=== PATIENT | male | born 1950 | race Caucasian/White ===

== ENCOUNTER → 2023-03-31 | Outpatient (CLI) | payer MEDICARE ==
[2023-03-31 20:41] LABS: HCT 42.9 % (39.6-50.0); HGB 14.3 d/dL (13.0-17.0); MCH 29.4 pg (27.0-32.0); MCHC 33.3 d/dL (32.0-37.0); MCV 88.3 FL (80.0-97.0); Mean Platelet Volume 10.1 FL (9.5-12.2); NRBC Per 100 WBC 0 X 10*3/uL (0.00-0.01); Platelet Count 331 X 10*3/uL (140-440); RBC 4.86 X 10*6/uL (4.40-5.60); RDW 12.6 % (11.5-14.5); WBC 7.92 X 10*3/uL (4.50-10.00)
[2023-04-01 04:23] LABS: Carbon Dioxide 24.2 mmol/L (21.6-31.8); Chloride 100 mmol/L (96-109); Potassium 3.7 mmol/L (3.5-5.5); Sodium 138 mmol/L (135-145)
== END | disposition home or self-care (01) ==
LOC: LABPAT 13:40
PROVIDERS: ATTEND Internal Medicine Cardiovascular Disease
DX: Z01.812 Encounter for preprocedural laboratory examination (principal); R93.1 Abnormal findings on diagnostic imaging of heart and coronary circulation; R94.39 Abnormal result of other cardiovascular function study
CPT/HCPCS: 36415; 80051; 82565; 84520; 85027

== ENCOUNTER → 2023-03-31 | Outpatient (CLI) | payer MEDICARE ==
--- NOTE | 2023-03-31 11:16 | CA ---
Stress Echo Report Yfn Medina Age: 73 Gender: M : 1950 Exam Date: 03/31/2023 09:42 Exam Location: [facility] Ht (in): 67 Wt (lb): 172 Ordering Physician: Jimmy Zamarripa MD Referring Physician: Marilou SALCEDO Softball Player: Jens Viveros Technologist Procedure CPT: Indication: E11.9 TYPE 2 DIABETES MELLITUS WITHOUT COMPLICATIO ICD-9 Codes: Rhythm: Patient History: Cardiac Medications: Medications in past 24 hours: Contrast: N/A Stress Results Protocol: Tyshawn Total dose(mL): Exercise Duration (min:sec): 6:[address] Depression (mm): Angina Score: Mir Score: METS: 7.9 Resting HR: 105 Resting BP: 154 / 90 Peak HR: 139 Peak BP: 150 / 88 Max Predicted HR: 149 93 % Max Predicted HR Target HR: 127 Double Product: [id number] Stress Summary: BP Response: Reason for Termination: Reached target heart rate or work-load Cardiac Symptoms: SHORT OF BREATH ECG Analysis Resting ECG: Normal sinus rhythm normal axis normal intervals Stress ECG: Patient exercised on Tyshawn protocol for 6 and half minutes achieving 8 mets 85% of predicted maximal heart rate without chest pain he complained of shortness of breath. There was [address] segment depression in inferolateral leads. Arrhythmia: Echo Analysis Resting Echo: Baseline echo shows normal left ventricular size wall motion systolic function Peak Echo Analysis: Post exercise there is excessive is induced wall motion abnormality involving the anteroseptal mid to distal anterior wall and anteroapical wall suggestive of ischemia in LAD distribution MEASUREMENTS (Male/Female) Normal Values CONCLUSIONS Average exercise tolerance Markedly abnormal EKG part of the stress test Significant area of ischemia in LAD distribution I discussed the stress test results with the patient and advised him to have cardiac evaluation and undergo cardiac catheterization for further evaluation he is going to reach out to his primary care physician think it over and make a decision. I offered to see him today and scheduled for a cath tomorrow. Dr. Jan Sidhu MD (Electronically Signed) Final Date: 31 March 2023 11:15
== END | disposition home or self-care (01) ==
LOC: RADNMMAIN 09:03
PROVIDERS: ATTEND Family Medicine
DX: E11.9 Type 2 diabetes mellitus without complications (principal); R94.31 Abnormal electrocardiogram [ECG] [EKG]; R93.1 Abnormal findings on diagnostic imaging of heart and coronary circulation
CPT/HCPCS: 93351

== ENCOUNTER 2023-04-01 05:55 | Day surgery (SDC) | payer MEDICARE ==
[2023-04-01] MEDS ORDERED: ALPRAZolam 0.25 MG TAB PO PRN (06:01)
[2023-04-01] MEDS ORDERED: NITROGLYCERIN SL TABS 0.4 MG TAB SUBLINGUAL PRN ×2 (06:01→11:21)
[2023-04-01] MEDS ORDERED: ALPRAZolam 0.5 MG TAB PO PRN (06:01)
[2023-04-01] MEDS ORDERED: ASPIRIN 325 MG TAB PO STA (06:01)
[2023-04-01] MEDS ORDERED: ATORVASTATIN 80 MG TAB PO STA (06:01)
[2023-04-01] MEDS ORDERED: SODIUM CHLORIDE 0.9% 1,000 ML IV ONE (06:14)
[2023-04-01 06:32] LABS: Basophils % (A) 0 %; Eosinophils # (A) 0.2 k/uL (0-0.7); Eosinophils % (A) 2 %; HCT 42.2 % (39.0-53.0); HGB 14.7 gm/dL (13.0-17.5); Lymphocytes # (A) 1.4 k/uL (1.0-4.8); Lymphocytes % (A) 15 %; MCHC 34.8 g/dL (31.0-37.0); MCV 86.1 fL (80.0-100.0); Mean Platelet Volume 7.7; Monocytes # (A) 0.4 k/uL (0-1.0); Monocytes % (A) 4 %; Neutrophils # (A) 6.8 k/uL (1.3-7.7); Neutrophils % (A) 76 %; Platelet Count 315 k/uL (150-450); RDW 12.7 % (11.5-15.5); WBC 8.9 k/uL (3.8-10.6)
[2023-04-01 06:33] LABS: Glucose,Whole Blood 151 mg/dL (70-110)
[2023-04-01 06:50] LABS: African American GFR (CKD) >90 (>60 ml/min/1.73 sqM); Anion Gap 14 mmol/L; Blood Urea Nitrogen 15 mg/dL (9-20); Calcium 9.7 mg/dL (8.4-10.2); Carbon Dioxide 23 mmol/L (22-30); Chloride 100 mmol/L (98-107); Glucose 162 mg/dL (74-99); Non-African American GFR(CKD) >90 (>60 ml/min/1.73 sqM); Potassium 3.4 mmol/L (3.5-5.1); Sodium 137 mmol/L (137-145)
[2023-04-01] MEDS ORDERED: HEPARIN SODIUM,PORCINE 10,000 UNIT in SODIUM CHLORIDE 0.9% 1,000 ML IRRIGATION PRN (07:00)
[2023-04-01] MEDS ORDERED: HEPARIN SODIUM,PORCINE (1 ML) 2,500 UNIT in SODIUM CHLORIDE 0.9% 250 ML IRRIGATION PRN (07:00)
[2023-04-01] MEDS ORDERED: VERAPAMIL 2.5 MG/ML 2 ML AMP ONE (07:18)
[2023-04-01] MEDS ORDERED: LIDOCAINE 1% INJ 10MG/ML (20 ML MDV) ONE (07:18)
[2023-04-01] MEDS ORDERED: fentaNYL (PF) 50 MCG/ML 2 ML AMP ONE (07:32)
[2023-04-01] MEDS ORDERED: MIDAZOLAM 2 MG/2 ML VIAL IVP ONE ×2 (07:35)
[2023-04-01] MEDS ORDERED: LIDOCAINE 1% INJ 10MG/ML (5 ML VIAL-PF) SQ ONE (07:35)
[2023-04-01] MEDS ORDERED: fentaNYL (PF) 50 MCG/1 ML VIAL IVP ONE (07:36)
[2023-04-01] MEDS ORDERED: VERAPAMIL SYRINGE (5 MG/10 ML) INTRAARTER ONE ×2 (07:36→07:48)
[2023-04-01] MEDS ORDERED: HEPARIN SODIUM 1,000 UN/ML (10ML VL) ONE (07:38)
[2023-04-01] MEDS: VERAPAMIL SYRINGE (5 MG/10 ML) INTRAARTER ONE ×2 (07:47→08:01)
[2023-04-01] MEDS ORDERED: HEPARIN SODIUM 1,000 UN/ML (10ML VL) IV ONE (07:48)
[2023-04-01] MEDS ORDERED: IOPAMIDOL-370 100ML BTL INJ ONE (08:27)
[2023-04-01 08:54] LABS: Glucose,Whole Blood 156 mg/dL (70-110)
--- NOTE | 2023-04-01 09:01 | CC ---
CARDIAC CATHETERIZATION REPORT REFERRING PHYSICIAN: Dr. Zamarripa. INDICATION: Abnormal stress echo in a patient with multiple coronary risk factors. PROCEDURE NOTE: After obtaining informed consent, left heart catheterization and coronary angiogram were performed via the right radial artery using standard Sera catheters. I initially obtained the right radial artery access using Seldinger technique, 6-Icelandic sheath was placed. Catheters and wires were floated into the ascending aorta under fluoroscopic guidance. We went through multiple catheter exchanges and ultimately engaged the left coronary artery using a Jose Armando catheter. The procedure was completed uneventfully. The patient received verapamil and heparin per protocol. FINDINGS: 1. Hemodynamics: Left ventricular end-diastolic pressure is 15 mm. There is no significant gradient across the aortic valve. 2. Left ventriculogram: Left ventriculogram is not performed. 3. Angiographic data: a.Right coronary artery: Right coronary artery is a large dominant vessel and shows a focal 95% stenosis in the midportion and 70% stenosis as it bifurcates into PDA and PLV. b.Left main coronary artery: The left main coronary artery appears calcified, but is free of significant stenosis. Divides into left anterior descending coronary artery and circumflex coronary artery. LAD shows a focal 90% stenosis in its midportion. Circumflex coronary artery has a 70% proximal circ lesion. CONCLUSIONS: Three-vessel coronary artery disease that is heavily calcified. PLAN: I reviewed angiographic data with Dr. Jo, the on-call medicare coordinator, who felt angioplasty will be high risk. I am going to have a surgeon evaluate the patient given the fact that patient is a diabetic, has multivessel coronary artery disease, is better off with surgery. MMODL / IJN: [id number] /
[2023-04-01] MEDS ORDERED: RX INFO: IV CONTRAST WAS GIVEN 1 EACH MISC MISCELLANE PRN (11:19)
[2023-04-01] MEDS ORDERED: DEXTROSE 50% SYRINGE 50 ML IVP PRN ×2 (11:23)
--- NOTE | 2023-04-01 11:45 | US ---
EXAMINATION TYPE: US carotid duplex BILAT DATE OF EXAM: 04/01/2023 COMPARISON: NONE CLINICAL INDICATION: Male, 73 years old with history of Pre-Op Cardiac Surgery; open heart TECHNIQUE: Carotid duplex ultrasound examination. Indirect Doppler criteria was utilized. FINDINGS: EXAM MEASUREMENTS: RIGHT: Peak Systolic Velocity (PSV) cm/sec ----- Right CCA: 59.9 ----- Right ICA: 92.5 ----- Right ECA: 251.8 ICA/CCA ratio: 1.5 RIGHT: End Diastole cm/sec ----- Right CCA: 16.8 ----- Right ICA: 32.5 ----- Right ECA: 19.1 LEFT: Peak Systolic Velocity (PSV) cm/sec ----- Left CCA: 65.9 ----- Left ICA: 110.2 ----- Left ECA: 211.6 ICA/CCA ratio: 1.7 LEFT: End Diastole cm/sec ----- Left CCA: 18 ----- Left ICA: 35.3 ----- Left ECA: 24.8 VERTEBRALS (direction of flow): Right Vertebral: Antegrade Left Vertebral: Antegrade Rhythm: Normal TUNGSTEN TENDER NOTES: Bilateral atherosclerotic plaque. No significant stenosis seen IMPRESSION: No significant hemodynamic stenosis bilaterally. Criteria for Assigning % of Stenosis / Diameter reduction (Estimation based on the indirect measurements of the internal carotid artery velocities (ICA PSV). 1. Normal (no stenosis)=ICA PSV < 125 cm/s: ratio < 2.0: ICA EDV<40 cm/s. 2. Less than 50% stenosis=ICA PSV < 125 cm/s: ratio < 2.0: ICA EDV<40 cm/s. 3. 50 to 69% stenosis=ICA PSV of 125 to 230 cm/s: ration 2.0 ? 4.0: ICA EDV 40-100 cm/s. 4. Greater than 70% stenosis to near occlusion= ICA PSV > 230 cm/s: ratio > 4.0: ICA EDV > 100 cm/s. 5. Near occlusion= ICA PSV velocities may be low or undetectable: variable ratio and ICA EDV. 6. Total occlusion=unable to detect flow.
[2023-04-01 11:56] LABS: Appearance,Urine Clear (Clear); Bilirubin,Urine Negative (Negative); Blood,Urine Negative (Negative); Color,Urine Colorless; Glucose,Urine (UA) Negative (Negative); Ketones,Urine Negative (Negative); Leukocyte Esterase,Urine Negative (Negative); Nitrite,Urine Negative (Negative); PH, Urine 7.5 (5.0-8.0); Protein,Urine Negative (Negative); Specific Gravity,Urine 1.016 (1.001-1.035); Urobilinogen,Urine <2.0 mg/dL (<2.0)
--- NOTE | 2023-04-01 12:03 | CT ---
EXAMINATION TYPE: CT chest wo con DATE OF EXAM: 04/01/2023 COMPARISON: None HISTORY: Pre op cardiac surgery CT DLP: 389.[address] of the chest was performed with lung and mediastinal window settings submitted. The la ck of contrast limits evaluation of the vascular, mediastinal and parenchymal structures including th e upper abdomen. LUNGS: The lungs are clear and free of infiltrate. No atelectasis. No pulmonary nodule or mass is de tected. No pleural effusion. No CT evidence of interstitial lung disease. Thoracic aorta, aortic root measures 3.2 cm while the descending thoracic aorta measures 3.6 cm in AP dimension. Minimal mural calcifications seen. Aortic arch demonstrates mild calcific atheromatous ch pa and is of normal caliber as is the descending thoracic aorta. MEDIASTINUM/SEAN: No significant cardiomegaly. Three-vessel coronary artery calcifications seen. No e vidence for mediastinal mass. No lymph nodes greater than 1cm. UPPER ABDOMEN: No significant abnormality is seen. OTHER: No significant other abnormality. IMPRESSION: 1. Aorta as discussed above.
--- NOTE | 2023-04-01 12:13 | XR ---
EXAMINATION TYPE: XR chest 2V DATE OF EXAM: 04/01/2023 COMPARISON: NONE HISTORY: Shortness of breath TECHNIQUE: Frontal and lateral views of the chest are obtained. FINDINGS: Scattered senescent parenchymal changes noted. No evidence for infiltrate. No evidence for atelectasis. Heart size is stable. Mediastinal structures are stable and grossly unremarkable. No evidence for hilar prominence. Degenerative changes dorsal spine. IMPRESSION: 1. No evidence for acute pulmonary disease.
--- NOTE | 2023-04-01 12:29 | US ---
EXAMINATION TYPE: Pre-Operative Non-Invasive Evaluation of the hand for Potential Radial Artery [place], Measurements only DATE OF EXAM: 04/01/2023 11:23 AM CLINICAL INDICATION: Male, 73 years old with history of Pre-Op Cardiac Surgery; open heart SIDE PERFORMED: Left TECHNIQUE: Radial artery is measured utilizing real time linear array sonography. Dominant hand: Duplex Findings: Radial Artery: Color flow seen Measurements in mm, transverse view: Right Radial: Proximal: 5.2 x 3.5 mm Mid: 2.6 x 2.0 mm Distal: 2.2 x 2.0 mm IMPRESSION: 1. Bilateral GSV measurements listed above. 2. Performing surgeon to determine viability as conduit.
--- NOTE | 2023-04-01 12:33 | US ---
EXAMINATION TYPE: US vein mapping BIL DATE OF EXAM: 04/01/2023 11:23 AM COMPARISON: NONE CLINICAL INDICATION: Male, 73 years old with history of PreOp Cardiac Surgery; open heart SIDE PERFORMED: Bilateral TECHNIQUE: Lower extremity saphenous vein is examined and measured utilizing real time linear array sonography. Patient History: Smoker: No Heart Disease: No Previous DVT: No Vascular Surgery: No Discoloration: No Hypertension: No Diabetes: not sure Paralysis: No Varicosities: No Edema: No DUPLEX FINDINGS: Greater Saphenous: Color flow seen Lesser Saphenous: Color flow seen Measurements in mm: Right Greater Saphenous: Groin: 5.5 x 4.1 mm High Thigh: 3.9 x 2.9 mm Mid Thigh: 3.8 x 2.8 mm Above Knee: 3.6 x 2.2 mm Knee: 3.5 x 2.3 mm Below Knee: 2.4 x 1.9 mm Mid Calf: 2.6 x 1.7 mm At Ankle: 3.2 x 2.0 mm Left Greater Saphenous: Groin: 4.5 x 3.3 mm High Thigh: 3.3 x 1.7 mm Mid Thigh: 2.9 x 1.7 mm Above Knee: 3.4 x 1.6 mm Knee: 3.1 x 2.0 mm Below Knee: 2.3 x 1.0 mm Mid Calf: 1.9 x 0.9 mm At Ankle: 2.2 x 1.2 mm IMPRESSION: 1. Bilateral GSV measurements listed above. 2. Performing surgeon to determine viability as conduit.
[2023-04-01] MEDS: SODIUM CHLORIDE 0.9% 1,000 ML in EMPTY BAG 1 BAG IV SCH ×2 (16:21→19:23)
[2023-04-01] MEDS: INSULIN ASPART (NovoLOG) 100 UNIT/ML VIAL SQ SCH ×3 (16:22→20:52)
--- NOTE | 2023-04-01 17:33 | CA ---
Transthoracic Echo Report Name: Yfn Medina Age: 73 Gender: M : 1950 Exam Date: 04/01/2023 12:00 Exam Location: [facility] Ht (in): 67 Wt (lb): 172 Ordering Physician: Michael Kay Attending/Referring Phys: Rahul CORONADO Test Administrator Erick Leiva Procedure CPT: Indications: preop cardiac surgery Cardiac Hx: Technical Quality: Fair Contrast 1: Total Dose (mL): Contrast 2: Total Dose (mL): MEASUREMENTS (Male / Female) Normal Values 2D ECHO LV Diastolic Diameter PLAX 4.5 cm 4.2 - 5.9 / 3.9 - 5.3 cm LV Systolic Diameter PLAX 2.6 cm IVS Diastolic Thickness 0.9 cm 0.6 - 1.0 / 0.6 - 0.9 cm LVPW Diastolic Thickness 0.9 cm 0.6 - 1.0 / 0.6 - 0.9 cm LV Relative Wall Thickness 0.4 RV Internal Dim ED PLAX 2.3 cm LVOT Diameter 2.2 cm Aortic Root Diameter 3.1 cm LA Systolic Diameter LX 2.9 cm 3.0 - 4.0 / 2.7 - 3.8 cm LV Diastolic Volume MOD BP 44.7 cm??? 67 - 155 / 56 - 104 cm??? LV Systolic Volume MOD BP 15.7 cm??? 22 - 58 / 19 - 49 cm??? LV Ejection Fraction MOD BP 64.9 % >= 55 % LV Cardiac Index MOD BP 1215.0 cm???/min???m??? LV Diastolic Volume MOD 4C 60.4 cm??? LV Systolic Volume MOD 4C 18.4 cm??? LV Ejection Fraction MOD 4C 69.6 % LV Cardiac Index MOD 4C 1759.8 cm???/min???m??? LV Diastolic Length 4C 8.0 cm LV Systolic Length 4C 7.0 cm LV Diastolic Volume MOD 2C 32.5 cm??? LV Systolic Volume MOD 2C 13.7 cm??? LV Ejection Fraction MOD 2C 57.9 % LV Cardiac Index MOD 2C 787.6 cm???/min???m??? LV Diastolic Length 2C 7.7 cm LV Systolic Length 2C 7.0 cm LA Volume 37.3 cm??? 18 - 58 / 22 - 52 cm??? LA Volume Index 19.3 cm???/m??? 16 - 28 cm???/m??? DOPPLER AV Peak Velocity 156.0 cm/s AV Peak Gradient 9.7 mmHg LVOT Peak Velocity 94.7 cm/s LVOT Peak Gradient 3.6 mmHg LVOT Velocity Time Integral 20.1 cm LVOT Stroke Volume 79.1 cm??? LVOT Stroke Volume Index 41.7 ml/m??? LVOT Cardiac Index 3311.2 cm???/min???m??? AV Area Cont Eq pk 2.4 cm??? MV Peak Velocity 122.7 cm/s MV Peak Gradient 6.0 mmHg MV Mean Velocity 61.1 cm/s MV Mean Gradient 1.8 mmHg MV Velocity Time Integral 29.5 cm Mitral E Point Velocity 66.0 cm/s Mitral A Point Velocity 116.7 cm/s Mitral E to A Ratio 0.6 MV Deceleration Time 275.7 ms MV E' Velocity 6.2 cm/s Mitral E to MV E' Ratio 10.7 TR Peak Velocity 149.5 cm/s TR Peak Gradient 8.9 mmHg Right Ventricular Systolic Press 14.5 mmHg PV Peak Velocity 130.1 cm/s PV Peak Gradient 6.8 mmHg FINDINGS Left Ventricle Normal LV size and wall thickness. Left ventricular ejection fraction is estimated at 55-60 %. Right Ventricle Normal right ventricular size. Right ventricular systolic pressure within normal limits. Right Atrium Normal right atrial size. Left Atrium Normal left atrial size. Mitral Valve Structurally normal mitral valve. Aortic Valve Trileaflet aortic valve. Mild AV sclerosis/calcfication.no aortic valve stenosis or regurgitation. Tricuspid Valve Structurally normal tricuspid valve. Trace TR. Pulmonic Valve Structurally normal pulmonic valve. No pulmonic regurgitation. Pericardium Normal pericardium. Aorta Normal size aortic root. CONCLUSIONS Normal LV function I aortic sclerosis without any stenosis Previewed by: Dr. Jan Sidhu MD (Electronically Signed) Final Date: 01 April 2023 17:32
--- NOTE | 2023-04-01 17:36 | P.GSCN ---
History of Present Illness Consult date: 04/01/23 Reason for Consult: Multivessel coronary artery disease Requesting physician: Jan Sidhu History of present illness: This is a 73-year-old who follows in our outpatient basis for his primary care with Dr. Jimmy Zamarripa and with Dr. Zachery Sidhu for his cardiology care. He has a past medical history significant for hypertension, hyperlipidemia, diabetes mellitus type 2, family history of early onset coronary artery disease with his brother having a CABG 4 in his late 40s or early 50s, GERD, diverticulosis with previous bowel perforation requiring colostomy and subsequent reversal, and the patient is a lifetime nonsmoker. The patient reports on his annual physical exam he mentioned to his primary care physician that he was having some episodes of heartburn and was recommended to subsequently undergo a stress test. On 03/31/2023 the patient underwent stress echo exercise which demonstrated average exercise tolerance, markedly abnormal EKG part of the stress test, significant area of ischemia in the LAD distribution, and due to the findings on the stress test he was recommended to undergo a cardiac catheterization which was completed today 04/01/2023. The cardiac catheterization results showed his left main coronary artery to appear calcified, but free of significant stenosis, a 90% stenosis to his mid left anterior descending coronary artery, a 70% stenosis to his proximal circumflex coronary artery and a focal 95% stenosis to the midportion of his right coronary artery and a 70% stenosis to his right coronary artery as it bifurcated into the PDA and PLV coronary arteries. Due to the findings on the cardiac catheterization a consult was placed to Dr. Yfn Huertas from cardiothoracic surgery for further evaluation and treatment recommendations including myocardial revascularization surgery. Review of Systems A 14 point review of systems was completed and was negative except as mentioned in the HPI. 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 History of Any Multi-Drug Resistant Organisms: None Reported Past Surgical History: Bowel Resection, Heart Catheterization Additional Past Surgical History / Comment(s): Bilateral eye cataract surgery Past Anesthesia/Blood Transfusion Reactions: No Reported Reaction Past Psychological History: No Psychological Hx Reported Smoking Status: Never smoker Past Alcohol Use History: None Reported Past Drug Use History: None Reported - Past Family History Mother Family Medical History: CVA/TIA Father Family Medical History: Myocardial Infarction (DC) Brother(s) Family Medical History: Coronary Artery Disease (CAD) (Brother had CABG 4 in his late 40s to early 50s) Medications and Allergies Home Medications Medication Instructions Recorded Confirmed Type Aspirin 81 mg PO DAILY 05/08/16 04/01/23 History Multivitamin [Men's Multi-Vitamin] 1 each PO DAILY 05/08/16 04/01/23 History amLODIPine [Norvasc] 10 mg PO DAILY 05/08/16 04/01/23 History hydroCHLOROthiazide [Hydrodiuril] 25 mg PO DAILY 05/08/16 04/01/23 History lisinopriL [Zestril] 20 mg PO DAILY 05/08/16 04/01/23 History metFORMIN HCL [Glucophage] 1,000 mg PO BID 05/08/16 04/01/23 History Nitroglycerin Sl Tabs [Nitrostat] 0.4 mg SUBLINGUAL Q5M PRN #25 tab 03/31/23 04/01/23 Rx Atorvastatin [Lipitor] 40 mg PO HS 04/01/23 04/01/23 History Omeprazole [PriLOSEC] 20 mg PO DAILY 04/01/23 04/01/23 History Semaglutide [Ozempic] 0.5 ml SQ WEEKLY 04/01/23 04/01/23 History Allergies Allergy/AdvReac Type Severity Reaction Status Date / Time No Known Allergies Allergy Verified 04/01/23 06:33 Surgical - Exam Vital Signs Temp Pulse Resp BP Pulse Ox 98.7 F 86 16 154/79 93 L 04/01/23 07:15 04/01/23 07:15 04/01/23 07:15 04/01/23 07:15 04/01/23 07:15 - General well developed, well nourished, no distress, no pain - Eyes PERRL, normal ocular movement, no pale, no icteric - ENT normal pinna, normal nares, normal mucosa, no hearing loss, no congestion - Neck Neck is supple, no lymphadenopathy. no masses, no bruits, trachea midline, no venous distension - Respiratory Lungs sounds essentially clear throughout. No wheezes, rhonchi or crackles. Respirations are symmetrical and nonlabored. - Cardiovascular Regular rhythm and rate. S1 and S2 present, negative for S3, gallop or murmur. No edema present. - Abdomen Abdomen is soft, nontender and nondistended. Active bowel sounds present in all 4 abdominal quadrants. No guarding or rigidity. No organomegaly appreciated. - Genitourinary Deferred - Rectum Deferred - Integumentary Skin is warm and dry. No clubbing or cyanosis is present. no rash, no growths, no abnormal pigmentation - Neurologic No focal deficits. normal coordination, normal sensation - Musculoskeletal Moves All 4 extremities with equal strength bilateral. normal gait, normal posture - Psychiatric oriented to time, oriented to person, oriented to place, speech is normal, memory intact Results - Labs 04/01/23 06:18 04/01/23 06:18 Abnormal Lab Results - Last 24 Hours (Table) 04/01/23 04/01/23 04/01/23 Range/Units 06:18 06:32 08:43 Potassium 3.4 L (3.5-5.1) mmol/L Glucose 162 H (74-99) mg/dL POC Glucose (mg/dL) 151 H 156 H (70-110) mg/dL Diabetes panel 04/01/23 Range/Units 06:18 Sodium 137 (137-145) mmol/L Potassium 3.4 L (3.5-5.1) mmol/L Chloride 100 (98-107) mmol/L Carbon Dioxide 23 (22-30) mmol/L BUN 15 (9-20) mg/dL Creatinine 0.75 (0.66-1.25) mg/dL Glucose 162 H (74-99) mg/dL Calcium 9.7 (8.4-10.2) mg/dL Calcium panel 04/01/23 Range/Units 06:18 Calcium 9.7 (8.4-10.2) mg/dL Pituitary panel 04/01/23 Range/Units 06:18 Sodium 137 (137-145) mmol/L Potassium 3.4 L (3.5-5.1) mmol/L Chloride 100 (98-107) mmol/L Carbon Dioxide 23 (22-30) mmol/L BUN 15 (9-20) mg/dL Creatinine 0.75 (0.66-1.25) mg/dL Glucose 162 H (74-99) mg/dL Calcium 9.7 (8.4-10.2) mg/dL Adrenal panel 04/01/23 Range/Units 06:18 Sodium 137 (137-145) mmol/L Potassium 3.4 L (3.5-5.1) mmol/L Chloride 100 (98-107) mmol/L Carbon Dioxide 23 (22-30) mmol/L BUN 15 (9-20) mg/dL Creatinine 0.75 (0.66-1.25) mg/dL Glucose 162 H (74-99) mg/dL Calcium 9.7 (8.4-10.2) mg/dL - Imaging Chest x-ray: report reviewed, image reviewed Assessment and Plan Assessment: Multivessel coronary artery disease Hypertension Hyperlipidemia GERD Lifetime nonsmoker History of diverticulitis, status post bowel perforation, with colostomy and subsequent reversal History of skin cancer, basal and squamous cell Family history of early onset coronary artery disease with his brother having CABG 4 in his late 40s to early 50s Plan: The patient was seen and examined at his bedside in the extended stay unit in conjunction with Dr. Yfn Huertas. His chart and diagnostics review. Preoperative testing and preoperative teaching has been initiated. A 5 m walk test was completed with the patient, the patient tolerated well with out any complaints of shortness of breath, chest pain or chest pressure. Time 1: 1.71 seconds, time 2: 2.03 seconds, time 3: 1.88 seconds. Once the preoperative testing has been obtained and STS risk score will be calculated and discussed with the patient. Dr. Huertas discussed with the patient, and his family members present at his bedside treatment options for coronary artery disease including myocardial revascularization surgery. Risks and benefits of surgery were di scussed with the patient, and knowing and understanding the risks he wished to proceed with the surgical option. The patient will be scheduled for off-pump myocardial revascularization surgery with left internal mammary artery, possible endoscopic left radial artery harvest, endoscopic greater saphenous vein harvest, left atrial appendage exclusion and intraoperative transesophageal echocardiogram to be scheduled on 04/14/2023 to be performed by Dr. Huertas. Continue to maximize medical management. More recommendations to follow based on patient's clinical course and as we obtain his preoperative testing results. Transthoracic 2-D echocardiogram results pending. Medical management and other comorbidities per primary care service and cardiology service. Thank you Dr. Sidhu for this consult and we look for to working with you in the care of this gentleman. I have personally seen and examined the patient, performed the documentation and the assessment and plan as written. 30minutes spent on the visit. Nickolas ANDERSON
[2023-04-01 17:47] LABS: Glucose,Whole Blood 112 mg/dL (70-110)
[2023-04-01 18:08] LABS: AST 18 U/L (17-59); African American GFR (CKD) >90 (>60 ml/min/1.73 sqM); Albumin 4.2 g/dL (3.5-5.0); Alkaline Phosphatase 72 U/L (38-126); Anion Gap 15 mmol/L; Blood Urea Nitrogen 16 mg/dL (9-20); Calcium 9.6 mg/dL (8.4-10.2); Carbon Dioxide 23 mmol/L (22-30); Chloride 100 mmol/L (98-107); Glucose 164 mg/dL (74-99); Magnesium 1.8 mg/dL (1.6-2.3); Non-African American GFR(CKD) >90 (>60 ml/min/1.73 sqM); Potassium 3.4 mmol/L (3.5-5.1); Sodium 138 mmol/L (137-145); Total Bilirubin 0.7 mg/dL (0.2-1.3); Total Protein 6.6 g/dL (6.3-8.2)
[2023-04-01 18:09] LABS: ALT 21 U/L (4-49)
[2023-04-01 18:22] LABS: Partial Thromboplastin Time 22.2 sec (22.0-30.0); Prothrombin Time 10.3 sec (9.0-12.0)
[2023-04-01] MEDS: METOPROLOL TARTRATE 25 MG TAB PO SCH (20:52)
[2023-04-01] MEDS ORDERED: ATORVASTATIN 40 MG TAB PO SCH (21:00)
[2023-04-01 21:04] LABS: Glucose,Whole Blood 202 mg/dL (70-110)
[2023-04-02 02:36] LABS: Chol/HDL Ratio 3.77 Ratio; LDL Cholesterol,Calculated 43.1 mg/dL (0.0-131.0)
[2023-04-02 03:58] VITALS: RESP 16
[2023-04-02 04:31] LABS: Hepatitis A Antibody IgM Nonreactive; Hepatitis B Core IgM Nonreactive; Hepatitis B Surface Antigen Nonreactive; Hepatitis C IgG Antibody Nonreactive
[2023-04-02] MEDS: SODIUM CHLORIDE 0.9% 1,000 ML in EMPTY BAG 1 BAG IV SCH (05:29)
[2023-04-02 06:34] LABS: Glucose,Whole Blood 161 mg/dL (70-110)
[2023-04-02] MEDS: INSULIN ASPART (NovoLOG) 100 UNIT/ML VIAL SQ SCH (06:35)
[2023-04-02] MEDS ORDERED: PANTOPRAZOLE 40 MG TABLET PO SCH (07:30)
[2023-04-02 07:51] VITALS: BP 109/67; PULSE 92; TEMP 98
--- NOTE | 2023-04-02 08:54 | P.DS ---
Providers Attending physician: Jan Sidhu Primary care physician: [facility] Course: History of present illness: This is a 73-year-old male patient with past medical history of diabetes, hypertension, hyperlipidemia. Patient underwent outpatient stress echocardiogram that came back positive. Patient was then seen by Dr. Castaneda in the office and cardiac catheterization was arranged. This revealed three-vessel coronary artery disease with heavily calcified and multivessel CABG was recommended. Patient was placed on the observation unit and seen by cardiothoracic surgery with workup for CABG scheduled for 04/14. Patient has no new concerns today. Medications have been adjusted. Patient will be discharged home today in stable condition. Echocardiogram reveals normal LV function, aortic sclerosis without stenosis. Nurse practitioner note has been reviewed, I agree with documented findings and plan of care. Patient was seen and examined. Plan - Discharge Summary Discharge Rx Participant: Yes New Discharge Prescriptions: New Metoprolol Tartrate [Lopressor] 25 mg PO BID #60 tab amLODIPine [Norvasc] 5 mg PO DAILY #30 tab Isosorbide Mononitrate ER [Imdur] 30 mg PO DAILY #30 tab lisinopriL [Zestril] 10 mg PO DAILY #30 tab Continue Aspirin 81 mg PO DAILY metFORMIN HCL [Glucophage] 1,000 mg PO BID Multivitamin [Men's Multi-Vitamin] 1 each PO DAILY Semaglutide [Ozempic] 0.5 ml SQ WEEKLY Atorvastatin [Lipitor] 40 mg PO HS Omeprazole [PriLOSEC] 20 mg PO DAILY Nitroglycerin Sl Tabs [Nitrostat] 0.4 mg SUBLINGUAL Q5M PRN #25 tab PRN Reason: Chest Pain Discontinued amLODIPine [Norvasc] 10 mg PO DAILY lisinopriL [Zestril] 20 mg PO DAILY hydroCHLOROthiazide [Hydrodiuril] 25 mg PO DAILY Discharge Medication List Aspirin 81 mg PO DAILY 05/08/16 [History] Multivitamin [Men's Multi-Vitamin] 1 each PO DAILY 05/08/16 [History] metFORMIN HCL [Glucophage] 1,000 mg PO BID 05/08/16 [History] Nitroglycerin Sl Tabs [Nitrostat] 0.4 mg SUBLINGUAL Q5M PRN #25 tab 03/31/23 [Rx] Atorvastatin [Lipitor] 40 mg PO HS 04/01/23 [History] Omeprazole [PriLOSEC] 20 mg PO DAILY 04/01/23 [History] Semaglutide [Ozempic] 0.5 ml SQ WEEKLY 04/01/23 [History] Isosorbide Mononitrate ER [Imdur] 30 mg PO DAILY #30 tab 04/02/23 [Rx] Metoprolol Tartrate [Lopressor] 25 mg PO BID #60 tab 04/02/23 [Rx] amLODIPine [Norvasc] 5 mg PO DAILY #30 tab 04/02/23 [Rx] lisinopriL [Zestril] 10 mg PO DAILY #30 tab 04/02/23 [Rx] Follow up Appointment(s)/Referral(s): Jan Sidhu MD [STAFF PHYSICIAN] - 1 Week (APPOINTMENT MADE ON March @ 2:45PM ) Patient Instructions/Handouts: Moderate Sedation (DC), Heart Catheterization (DC), After Radial Heart Catheterization (GEN) Activity/Diet/Wound Care/Special Instructions: NO DRIVING FOR TWO DAYS. OK TO SHOWER TOMORROW, REMOVE DRESSING FIRST. NO SOAKING IN TUB, SWIMMING, DOING DISHES BY HAND (IF PUNCTURE IN WRIST) FOR FIVE DAYS. AVOID BENDING, PUSHING PULLING LIFTING GREATER THAN 5 LBS FOR FIVE DAYS. SIGNS OF INFECTION IE: FEVER, RASH, UNUSUAL DRAINAGE, SWELLING OR HARD KNOT ON PUNCTURE SITE CONTACT CARDIOLOGY OR GO TO ER TO BE FURTHER EVALUATED. IF PUNCTURE BLEEDS, APPLY FIRM DIRECT PRESSURE AND GO TO ER. DO NOT DRIVE SELF. MEDICATIONS DIRECTED BY CARDIOLOGY. NO STRENUOUS ACTIVITY. RESUME METFORMIN ON WEDNESDAY.
[2023-04-02] MEDS ORDERED: ASPIRIN 81 MG PO SCH (09:00)
[2023-04-02] MEDS ORDERED: MULTIVITAMINS, THERA 1 EACH TAB PO SCH (09:00)
[2023-04-02] MEDS ORDERED: lisinopriL 10 MG TAB PO SCH (09:00)
[2023-04-02] MEDS ORDERED: lisinopriL 20 MG TAB PO SCH (09:00)
[2023-04-02] MEDS ORDERED: hydroCHLOROthiazide 25 MG TAB PO SCH (09:00)
[2023-04-02] MEDS ORDERED: amLODIPine 10 MG TAB PO SCH (09:00)
[2023-04-02] MEDS ORDERED: ISOSORBIDE MONONITRATE ER 30 MG TAB.ER.24H PO SCH (09:00)
[2023-04-02] MEDS ORDERED: amLODIPine 5 MG TAB PO SCH (09:00)
[2023-04-02] MEDS: METOPROLOL TARTRATE 25 MG TAB PO SCH (09:18)
--- NOTE | 2023-04-02 09:37 | US ---
EXAMINATION TYPE: US arterial LE single level DATE OF EXAM: 04/01/2023 4:03 PM CLINICAL INDICATION: Male, 73 years old with history of Ankle Brachial Index (FREDERICK) ; Pre op cardiac s urgery History of: Smoker: Never Hypertension: Yes Diabetic: Yes Hyperlipidemia: Yes TIA/CVA: No Previous Vascular Surgery: Heart cath MN: No Doppler Waveforms: Right: Multiphasic and monophasic in the digits. Left: Multiphasic and monophasic in the digits. Right Brachial Pressure: Deferred due to radial heart cath Left Brachial Pressure: 139 Ankle-Brachial Indices: Right: 1.32 Left: 1.48 Toe Brachial Indices: Right: 0.63 Left: 0.73 IMPRESSION: Ankle-brachial indices within normal limits.
== END 2023-04-02 10:02 | disposition home or self-care (01) ==
LOC: CATHCVL 05:55 → 6NMEDSUR 08:28 → CATHCVL 04-02 10:02
PROVIDERS: ATTEND Internal Medicine Cardiovascular Disease
DX: I25.10 Atherosclerotic heart disease of native coronary artery without angina pectoris (principal); I10 Essential (primary) hypertension; E78.5 Hyperlipidemia, unspecified; E11.9 Type 2 diabetes mellitus without complications; Z85.828 Personal history of other malignant neoplasm of skin; K21.9 Gastro-esophageal reflux disease without esophagitis; Z79.82 Long term (current) use of aspirin; Z79.899 Other long term (current) drug therapy; Z79.84 Long term (current) use of oral hypoglycemic drugs; Z82.49 Family history of ischemic heart disease and other diseases of the circulatory system
CPT/HCPCS: 94150; 93306; 93458; 80061; 80053; 80048; 80074; 84443; 83735; 85025; 85610; 85730; 81003; 87070; 83036; 71046; 93930; 93970; 93922; 93880; 71250; C1769; C1894; J2250; J2001; J1644; Q9967; J3010

== ENCOUNTER → 2023-04-09 | Outpatient (CLI) | payer MEDICARE ==
--- NOTE | 2023-04-10 13:19 | P.PN ---
Progress Note - Text Progress Note Date: 04/09/23 An STS risk score was calculated and discussed with the patient.
== END | disposition home or self-care (01) ==
LOC: LABWHC1 08:23
PROVIDERS: ATTEND Thoracic Surgery (Cardiothoracic Vascular Surgery)
DX: I25.10 Atherosclerotic heart disease of native coronary artery without angina pectoris (principal)
CPT/HCPCS: 86850; 86900; 86901; 86920

== ENCOUNTER 2023-04-14 06:15 | Inpatient (IN) | payer MEDICARE ==
[~2023-04-14 06:15] MED LIST: ALBUMIN HUMAN 25% 50 ML IV ONE; ALBUMIN HUMAN 5% 500 ML IVPB ONE; ASPIRIN 325 MG TAB PO ONE; ATORVASTATIN 10 MG TAB PO ONE; CALCIUM CHLORIDE 100 MG/ML 10 ML SYRINGE IV ONE; CARDIOPLEGIC SOLN (K+ 16 MEQ/L 1,000 ML with SODIUM BICARB (1 MEQ/ML) 20 ML, LIDOCAINE ... PERFUSION ONE; CHLORHEXIDINE GLUCONATE 15 ML CUP MUCOUS MEM ONE; CLEVIDIPINE BUTYRATE 25 MG in EMPTY BAG 1 BAG IV ONE; DILTIAZEM 125 MG in SODIUM CHLORIDE 0.9% 100 ML IV ONE; HEPARIN SODIUM 1,000 UN/ML (10ML VL) IV ONE; HEPARIN SODIUM,PORCINE (1 ML) 5,000 UNIT in SODIUM CHLORIDE 0.9% 500 ML 500 ML IV ONE; INSULIN REGULAR 100 UNIT in SODIUM CHLORIDE 0.9% 100 ML IV ONE; LACTATED RINGERS 1,000 ML IV ONE; MAGNESIUM SULFATE 16.24 MEQ in EMPTY SYRINGE 1 SYR IV ONE; MANNITOL 25% 12.5 GM/50 ML VIAL IV ONE; METOPROLOL TARTRATE 12.5 MG TAB PO ONE; NITROGLYCERIN SL TABS 0.4 MG TAB SUBLINGUAL ONE; NITROGLYCERIN-D5W PMX 25 MG/250 ML BTL IV ONE; NITROGLYCERIN-D5W PMX 50 MG in DEXTROSE/WATER 1 250ML.BAG IV ONE; NOREPINEPHRINE 4 MG in SODIUM CHLORIDE 0.9% 250 ML IV ONE; PAPAVERINE 360 MG in SODIUM CHLORIDE 0.9% 90 ML IV ONE; PHENYLEPHRINE 10 MG/ML VIAL IV ONE; PHENYLEPHRINE 40 MG in SODIUM CHLORIDE 0.9% 250 ML IV ONE; PROTAMINE SULFATE 10 MG/ML 25 ML VIAL IV ONE; PROTAMINE SULFATE 250 MG in EMPTY BAG 1 BAG IV ONE; SODIUM BICARB 8.4% 50 ML SYR (1 MEQ/ML) IV ONE; SODIUM CHLORIDE 0.9% 1,000 ML IV ONE; TRANEXAMIC ACID 2,000 MG in SODIUM CHLORIDE 0.9% 80 ML IV ONE; ceFAZolin 1,000 MG in SODIUM CHLORIDE 0.9% IRRIGATIO 1,000 ML IRRIGATION ONE; propofoL 1,000 MG/100 ML VIAL IV ONE
[2023-04-14 07:21] LABS: Glucose,Whole Blood 119 mg/dL (70-110)
[2023-04-14] MEDS ORDERED: NITROGLYCERIN-D5W PMX 25 MG/250 ML BTL IV ONE (07:57)
[2023-04-14] MEDS ORDERED: WATER FOR INJECTION, STERILE 10 ML VIAL IV ONE (07:57)
[2023-04-14] MEDS ORDERED: HEPARIN SODIUM,PORCINE 10,000 UNIT/ML 1 ML VIAL ONE (07:57)
[2023-04-14] MEDS ORDERED: ONDANSETRON 4 MG/2 ML VIAL ONE (07:57)
[2023-04-14] MEDS ORDERED: ALBUMIN HUMAN 5% (25gm) 500 ML VIAL IVPB ONE (07:57)
[2023-04-14] MEDS ORDERED: VECURONIUM 10 MG VIAL IV ONE (07:57)
[2023-04-14] MEDS ORDERED: fentaNYL (PF) 50 MCG/ML 50 ML VIAL ONE (07:57)
[2023-04-14] MEDS ORDERED: SUCCINYLCHOLINE CHLORIDE 200 MG/10 ML VIAL IV ONE (07:57)
[2023-04-14] MEDS ORDERED: MIDAZOLAM HCL 10 MG/10 ML VIAL ONE (07:57)
[2023-04-14] MEDS ORDERED: PROTAMINE SULFATE 10 MG/ML 25 ML VIAL IV ONE (07:57)
[2023-04-14] MEDS ORDERED: PROPOFOL 10 MG/ML 20 ML VIAL IV ONE (07:57)
[2023-04-14 08:57] LABS: ABG Base Excess -0.5 mmol/L; ABG Glucose Whole Blood 125 mg/dL (75-99); ABG HCO3 24 mmol/L (21-25); ABG Hematocrit 41 % (34.0-46.0); ABG Ionized Calcium 4.8 mg/dL (4.5-5.3); ABG Oxygen Saturation 99.7 % (94-97); ABG PCO2 38 mmHg (35-45); ABG PH 7.41 (7.35-7.45); ABG PO2 170 mmHg (83-108); ABG Potassium Whole Blood 3.9 mmol/L (3.4-4.5); ABG Sodium Whole Blood 139 mmol/L (135-146); ABG TCO2 25 mmol/L (19-24)
[2023-04-14 10:13] LABS: ABG Base Excess -1.9 mmol/L; ABG Glucose Whole Blood 122 mg/dL (75-99); ABG HCO3 24 mmol/L (21-25); ABG Hematocrit 38 % (34.0-46.0); ABG Ionized Calcium 4.8 mg/dL (4.5-5.3); ABG Lactic Acid Whole Blood 0.6 mmol/L (0.5-1.6); ABG Oxygen Saturation 99.9 % (94-97); ABG PCO2 44 mmHg (35-45); ABG PH 7.35 (7.35-7.45); ABG PO2 274 mmHg (83-108); ABG Potassium Whole Blood 3.8 mmol/L (3.4-4.5); ABG Sodium Whole Blood 140 mmol/L (135-146); ABG TCO2 25 mmol/L (19-24)
[2023-04-14 11:06] LABS: ABG Base Excess -2.6 mmol/L; ABG Glucose Whole Blood 113 mg/dL (75-99); ABG HCO3 22 mmol/L (21-25); ABG Hematocrit 35 % (34.0-46.0); ABG Ionized Calcium 4.6 mg/dL (4.5-5.3); ABG Lactic Acid Whole Blood 0.7 mmol/L (0.5-1.6); ABG Oxygen Saturation 99.9 % (94-97); ABG PCO2 38 mmHg (35-45); ABG PH 7.38 (7.35-7.45); ABG PO2 215 mmHg (83-108); ABG Potassium Whole Blood 3.9 mmol/L (3.4-4.5); ABG Sodium Whole Blood 140 mmol/L (135-146); ABG TCO2 23 mmol/L (19-24)
[2023-04-14 11:42] LABS: ABG Base Excess -2.6 mmol/L; ABG Glucose Whole Blood 106 mg/dL (75-99); ABG HCO3 23 mmol/L (21-25); ABG Hematocrit 33 % (34.0-46.0); ABG Ionized Calcium 4.6 mg/dL (4.5-5.3); ABG Lactic Acid Whole Blood 0.5 mmol/L (0.5-1.6); ABG Oxygen Saturation 99.7 % (94-97); ABG PCO2 40 mmHg (35-45); ABG PH 7.37 (7.35-7.45); ABG PO2 184 mmHg (83-108); ABG Sodium Whole Blood 140 mmol/L (135-146); ABG TCO2 24 mmol/L (19-24)
[2023-04-14 12:35] LABS: ABG Base Excess -3.2 mmol/L; ABG Glucose Whole Blood 120 mg/dL (75-99); ABG HCO3 22 mmol/L (21-25); ABG Hematocrit 32 % (34.0-46.0); ABG Ionized Calcium 4.8 mg/dL (4.5-5.3); ABG Lactic Acid Whole Blood 0.6 mmol/L (0.5-1.6); ABG Oxygen Saturation 99.1 % (94-97); ABG PCO2 41 mmHg (35-45); ABG PH 7.35 (7.35-7.45); ABG PO2 116 mmHg (83-108); ABG Potassium Whole Blood 3.7 mmol/L (3.4-4.5); ABG Sodium Whole Blood 140 mmol/L (135-146); ABG TCO2 24 mmol/L (19-24)
[2023-04-14] MEDS ORDERED: ONDANSETRON 4 MG/2 ML VIAL IVP PRN (13:17)
[2023-04-14] MEDS ORDERED: DEXTROSE 5% IN WATER 100 ML with AMIODARONE 150 MG IV PRN (13:17)
[2023-04-14] MEDS ORDERED: DEXTROSE 50% SYRINGE 50 ML IVP PRN ×2 (13:17)
[2023-04-14] MEDS ORDERED: Potassium Replacement Protocol 1 EACH MISC MISCELLANE PRN (13:17)
[2023-04-14] MEDS ORDERED: Phosphorus Replacement Protoco 1 EACH MISC MISCELLANE PRN (13:17)
[2023-04-14] MEDS ORDERED: IPRATROPIUM-ALBUTEROL 3 ML NEB INHALATION PRN (13:17)
[2023-04-14] MEDS ORDERED: CALCIUM GLUCONATE IN NACL 2 GM in SALINE 1 100ML.BAG IVPB PRN (13:17)
[2023-04-14] MEDS ORDERED: NITROGLYCERIN-D5W PMX 50 MG in DEXTROSE/WATER 1 250ML.BAG IV SCH (13:17)
[2023-04-14] MEDS ORDERED: METOCLOPRAMIDE 5 MG/ML 2 ML VIAL IVP PRN (13:17)
[2023-04-14] MEDS ORDERED: BENZOCAINE/MENTHOL LOZENG 1 EACH LOZENGE MUCOUS MEM PRN (13:17)
[2023-04-14] MEDS ORDERED: AMIODARONE 360 MG in DEXTROSE 5% IN WATER 200 ML IV PRN ×2 (13:17)
[2023-04-14] MEDS ORDERED: Magnesium Replacement Protocol 1 EACH MISC MISCELLANE PRN (13:17)
[2023-04-14] MEDS ORDERED: DILTIAZEM 125 MG in SODIUM CHLORIDE 0.9% 100 ML IV SCH (13:17)
[2023-04-14] MEDS ORDERED: AMIODARONE 450 MG in DEXTROSE 5% IN WATER 250 ML IV PRN ×2 (13:17)
[2023-04-14 13:23] LABS: Glucose,Whole Blood 116 mg/dL (70-110)
--- NOTE | 2023-04-14 13:26 | P.OP ---
Date of Procedure: 04/14/23 Preoperative Diagnosis: Coronary artery disease Postoperative Diagnosis: Same Procedure(s) Performed: Off pump CABG 4 with PUCKETT to LAD, sequential left radial artery graft to first and second obtuse marginal branches of the circumflex coronary artery, saphenous vein graft to the right coronary artery with endovascular vein harvest from the left greater saphenous vein, endovascular harvest of the left radial artery, occlusion of the left atrial appendage with 35 mm AtriCure clamp, intra- operative graft velocity assessment. Implants: 35 mm AtriCure clamp. Anesthesia: GETA Surgeon: Yfn Huertas Construction Area Manager #1: Presley Hong Construction Area Manager #2: Dino Anderson Estimated Blood Loss (ml): 625 IV fluids (ml): 2,000 Urine output (ml): 500 Pathology: none sent Condition: stable Disposition: ICU Indications for Procedure: 73-year-old male who underwent cardiac catheterization was found to have three- vessel coronary artery disease. Recommend coronary bypass surgery. Elective CABG was scheduled. Operative Findings: TORSTEN revealed normal ventricular and normal valvular function. There was diffuse calcification of the coronary arterial system. Conduits were good. Coronaries were opened at soft spots and each vessel accepted a 1.5 mm probe distally without difficulty. Grafts lay well. Medistim graft flow measurements in each graft were excellent. Good hemostasis was obtained. Description of Procedure: Patient was brought to the operating room after placement of monitoring lines and appropriate. General anesthesia was induced. Patient was appropriately positioned and anterior torso and bilateral lower extremities and left upper extremity were sterilely prepped and draped in standard fashion. Left radial artery and left greater saphenous vein were harvested using endovascular harvest technique. Simultaneous sternotomy was performed and the left hemisternum retracted upwards. The left internal mammary artery was harvested on a vascularized pedicle left intact and surgeon from subclavian distally. Left pleural space was drained with 32-Indian chest tube. Standard sternal retractor was placed. Pericardium was opened in the midline and the heart was exposed with pericardial sutures. Coronary arteries were explored. The distal right coronary artery was heavily calcified. The PDA was a very small diseased vessel and was not graftable. The posterior lateral branch of the right coronary artery was also a relatively small vessel but was heavily calcified throughout and was not graftable. The right coronary artery had diffuse disease but was graftable fairly distally and it was decided to grafted here. The LAD was diffusely calcified all the way to the apex but soft spots were available for coronary anastomosis. It was grafted in its midportion. The first diagonal branch was very small and not grafted. The first obtuse marginal coronary artery was a diffusely to be diseased vessel that was grafted in its midportion. Second obtuse marginal was diseased proximally but relatively disease-free distally. The aorta was soft without palpable calcific disease. Patient was systemically heparinized. The patient did display some heparin resistance and required repeated doses of heparin in order to maintain ACT greater than 250 during the procedure. We began with the PUCKETT to the LAD. The PUCKETT was tunneled into the pericardial space through the pleura. Was cut to appropriate length to reach the mid LAD. The middle ear a LAD was opened. At the vessel was soft here but had significant back wall plaque. It was a 1.75-2 mm vessel. It easily accepted a 1.5 mm flow through. This was used to control flow of blood during the anastomosis. End to side anastomosis between the PUCKETT and the LAD was performed with running 8-0 Prolene suture. On completion anastomosis flow through was removed effectively probing the proximal distal portion of the anastomosis. Suture was tied with good resultant hemostasis. Inflow was open and the graft was noted to lay well with no kinking in the cunningham fill well with no narrowing. COURTNEY pedicle was tacked surrounding epicardium with 6-0 silk. Next we proceeded to the right coronary artery. Right coronary artery was stabilized and opened beyond the acute margin of the heart. Had significant back wall disease but we were able to place a 1.5 mm flow through. It was a 2 mm vessel. End-to-side anastomosis between saphenous vein and the right coronary artery was performed with running 7-0 Prolene suture. On comple tion anastomosis the flow through was removed effectively probing the proximal distal portion anastomosis. Suture was tied with good resultant hemostasis. Good backbleeding was noted into the vein graft to the first valve. The vein was cut to appropriately to reach the ascending aorta and backbleeding was controlled with a bulldog clamp. Next the lateral wall the heart was exposed. We began with the second obtuse marginal. It was opened beyond palpable disease in its midportion. There was a 1.75 mm vessel and easily accepted a 1.5 mm flow through proximally. Distally the 1.5 mm flow through was relatively snug fit but easily passed. End-to-side anastomosis between the radial artery and the second obtuse marginal was performed with running 7-0 Prolene suture. On completion anastomosis flow through was removed effectively probing the proximal distal portion anastomosis. Suture was tied with good result and hemostasis. A bulldog clamp was placed just proximal to the distal anastomosis and the side to side anastomosis between the first obtuse marginal and the radial artery was planned out. The first obtuse marginal coronary artery was opened fairly proximally. Despite being a soft reasonable-looking vessel a 1.5 mm probe would not pass distally and the vessel was opened further beyond the apparent stenosis to wear a 1.5 mm probe easily passed distally. [id number] anastomosis was then constructed to the resulting arteriotomy from the radial artery with running 7-0 Prolene suture controlling flow blood within the vessel during anastomosis with a 1.5 mm flow through. On completion the anastomosis the flow through was removed 50 probe the proximal distal portion anastomosis. Suture was tied with good result and hemostasis. Good backbleeding was noted into the radial artery. Bulldog clamp was removed from distal to proximal and the heart was lowered into anatomic position. The radial artery was brought beneath the internal mammary artery to the ascending aorta. It was cut to appropriate length. Heart string device was deployed in the ascending aorta to the left of midline and proximal anastomosis constructed with running 5-0 Prolene suture. On completion anastomosis it was de-aired by backbleeding and the suture was tied with good result and hemostasis. Second heart string device was then deployed in the proximal ascending aorta and the proximal anastomosis for the right coronary artery graft was constructed with running 5-0 Prolene suture. On completion the anastomosis the heartstring device was removed and the suture tied. The vein graft was de-aired with a holes and the flow open. Flows in the 4 grafts were all tested separately with the medistim device and noted to be excellent. Heparin was reversed with protamine and good hemostasis obtained throughout. The right pleural space was drained with a 18 Phillip drain in the mediastinum was drained with 36-Indian chest tube. Chest was irrigated with antibiotic solution and closed with 8 sternal wires. Fascia was closed with 0 Ethibond. Subcutaneous and subcuticular layers were closed with layers of Vicryl suture. Dry sterile dressings were applied and the patient was tr ansferred to ICU in stable condition.
[2023-04-14] MEDS: CLEVIDIPINE BUTYRATE 25 MG in EMPTY BAG 1 BAG IV SCH ×3 (13:30→18:37)
[2023-04-14] MEDS: LACTATED RINGERS 1,000 ML IV SCH (13:31)
--- NOTE | 2023-04-14 13:31 | P.ANPRN ---
Procedure Note - Anesthesia - Invasive Line Central Line Time Out Performed: Yes (724) Date of Procedure: 04/14/23 Time of Procedure: 07:25 Location of Patient: PreOp Preparation: Sterile Prep Central Line Location: Internal Jugular (right IJ CORDIS) Ultrasound Used: Yes Purpose - Visualization and Identification of Vasculature: Yes Needle Guage: 18g angio Image Stored and Saved: Yes Narrative: Central line placement per sterile protocol utilized. +local +angio +cvp +jwire +uneventful dilation and introduction right IJ cordis. Lumen bled and flushed
--- NOTE | 2023-04-14 13:33 | P.ANPRN ---
Procedure Note - Anesthesia - Invasive Line Right [place] Time Out Performed: Yes (724) Date of Procedure: 04/14/23 Time of Procedure: 07:01 Location of Patient: PreOp Preparation: Sterile Prep, Sterile Dressing [place] Line Location: Internal Jugular (right) Ultrasound Used: No Purpose - Visualization and Identification of Vasculature: No Image Stored and Saved: No Narrative: Central line placement per sterile protocol utilized. swan floated in sheath in 1 attempt to pa wedge at 50cm. b/d w/d 5cm . secured and dressed.
--- NOTE | 2023-04-14 13:41 | P.ANPRN ---
Procedure Note - Anesthesia - Invasive Line Right Arterial Line Time Out Performed: Yes (724) Date of Procedure: 04/14/23 Time of Procedure: 08:11 Location of Patient: PreOp Preparation: Sterile Prep, Sterile Dressing Arterial Line Location: Briachial (right) Ultrasound Used: Yes Purpose - Visualization and Identification of Vasculature: Yes Needle Guage: 20g Image Stored and Saved: Yes Narrative: Central line placement per sterile protocol utilized. attempted radial x3. Decision to go brachial. Attempt x 1
[2023-04-14 13:44] LABS: INR 1.2 (<1.2); Partial Thromboplastin Time 24.3 sec (22.0-30.0); Prothrombin Time 12.9 sec (10.0-12.5)
[2023-04-14 13:47] LABS: Basophils % (A) 0 %; Eosinophils # (A) 0.1 k/uL (0-0.7); Eosinophils % (A) 1 %; Lymphocytes % (A) 9 %; MCH 30.8 pg (25.0-35.0); MCHC 34.6 g/dL (31.0-37.0); MCV 89.1 fL (80.0-100.0); Mean Platelet Volume 7.8; Monocytes # (A) 0.3 k/uL (0-1.0); Monocytes % (A) 3 %; Neutrophils # (A) 9.6 k/uL (1.3-7.7); Neutrophils % (A) 87 %; Platelet Count 195 k/uL (150-450); RBC 3.25 m/uL (4.30-5.90); RDW 13.8 % (11.5-15.5); WBC 11.1 k/uL (3.8-10.6)
[2023-04-14] MEDS: IPRATROPIUM-ALBUTEROL 3 ML NEB INHALATION SCH ×3 (13:52→20:32)
[2023-04-14 14:00] LABS: Glucose,Whole Blood 152 mg/dL (70-110)
[2023-04-14 14:02] LABS: Ionized Calcium 4.8 mg/dL (4.5-5.3)
[2023-04-14] MEDS: INSULIN REGULAR 100 UNIT in SODIUM CHLORIDE 0.9% 100 ML IV SCH (14:02)
[2023-04-14] MEDS: ACETAMINOPHEN IV (For NPO) 1,000 MG in EMPTY BAG 1 BAG IVPB SCH ×2 (14:03→18:02)
[2023-04-14] MEDS ORDERED: MUPIROCIN 2% OINT 22 GM TUBE NASAL ONE (14:15)
[2023-04-14 14:21] LABS: ALT 11 U/L (4-49); AST 16 U/L (17-59); African American GFR (CKD) >90 (>60 ml/min/1.73 sqM); Albumin 3.2 g/dL (3.5-5.0); Alkaline Phosphatase 37 U/L (38-126); Anion Gap 10 mmol/L; Blood Urea Nitrogen 13 mg/dL (9-20); Calcium 8.3 mg/dL (8.4-10.2); Carbon Dioxide 19 mmol/L (22-30); Chloride 109 mmol/L (98-107); Glucose 107 mg/dL (74-99); Magnesium 1.5 mg/dL (1.6-2.3); Non-African American GFR(CKD) >90 (>60 ml/min/1.73 sqM); Potassium 3.8 mmol/L (3.5-5.1); Sodium 138 mmol/L (137-145); Total Bilirubin 0.5 mg/dL (0.2-1.3); Total Protein 4.9 g/dL (6.3-8.2)
--- NOTE | 2023-04-14 14:24 | XR ---
EXAMINATION TYPE: XR chest 1V portable DATE OF EXAM: 04/14/2023 COMPARISON: 04/01/2023 HISTORY: 04/01/2023 TECHNIQUE: Single frontal view of the chest is obtained. FINDINGS: ET tube approximately 2.1 cm above annie. NG tube is seen coursing the abdomen. Mediastin al drain and chest tube stable with tiny 5% left apical pneumothorax. 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 [place]Fab[place] catheter seen with the tip overlying the proximal pulmonary outflow tract. Tiny calcified granuloma right upper lobe. Calcifications overlying the neck likely related to carotid artery. There is an IV line extending int o the left carotid region correlate clinically. Hypertrophic and degenerative changes of the spine. P ost median sternotomy changes. IMPRESSION: Limited inspiration with left lower lobe consolidation and small effusion. There is a ti ny left apical pneumothorax measuring less than 5%.
[2023-04-14 14:35] LABS: ABG Base Excess -3.2 mmol/L; ABG HCO3 23 mmol/L (21-25); ABG Oxygen Saturation 99.6 % (94-97); ABG PCO2 43 mmHg (35-45); ABG PH 7.33 (7.35-7.45); ABG PO2 258 mmHg (83-108); ABG TCO2 24 mmol/L (19-24); Allen Test Performed? no
[2023-04-14] MEDS: MAGNESIUM SULFATE-D5W PMX 1 GM in DEXTROSE/WATER 1 100ML.BAG IVPB SCH ×2 (14:44→15:46)
[2023-04-14 14:57] LABS: Glucose,Whole Blood 155 mg/dL (70-110)
[2023-04-14] MEDS ORDERED: POTASSIUM BICARBONATE/CIT AC 20 MEQ TABLET.EFF NG-TUBE SCH (15:00)
[2023-04-14 15:08] LABS: Basophils % (A) 0 %; Eosinophils # (A) 0.1 k/uL (0-0.7); Eosinophils % (A) 1 %; HCT 34.2 % (39.0-53.0); HGB 11.8 gm/dL (13.0-17.5); Lymphocytes # (A) 1.3 k/uL (1.0-4.8); Lymphocytes % (A) 9 %; MCH 30.9 pg (25.0-35.0); MCHC 34.4 g/dL (31.0-37.0); Mean Platelet Volume 7.5; Monocytes # (A) 0.5 k/uL (0-1.0); Monocytes % (A) 4 %; Neutrophils # (A) 12.8 k/uL (1.3-7.7); Neutrophils % (A) 86 %; Platelet Count 260 k/uL (150-450); RDW 13.5 % (11.5-15.5); WBC 14.9 k/uL (3.8-10.6)
[2023-04-14] MEDS ORDERED: DEXMEDETOMIDINE/0.9% NACL(PMX) 400 MCG in EMPTY BAG 1 BAG IV SCH (15:15)
--- NOTE | 2023-04-14 15:33 | P.CRDCN ---
History of Present Illness Consult date: 04/14/23 History of present illness: History of Present Illness: The patient is a 73-year-old male with a family history of premature CAD, hypertension, diabetes and hyperlipidemia, followed by Dr. Sidhu who presented earlier this month with symptoms of chest discomfort and had a significantly abnormal stress test. He subsequently underwent cardiac catheterization on April 01 and was found to have significant obstructive disease involving the RCA, LAD and left circumflex. He was admitted today electively and underwent coronary artery bypass grafting. He received a PUCKETT to LAD and left radial to the first and second obtuse marginal branch and SVG to the RCA with closure of the left atrial appendage. He is intubated, starting to wake up. In sinus mechanism and hemodynamically stable. He has no history of CHF or significant valvular disease. There is no history of atrial fibrillation. Medications: As outpatient included metformin 1 g twice a day, Zestril 10 mg daily, amlodipine 5 mg daily, metoprolol 25 mg twice a day, Lipitor 40 mg daily, aspirin once a day, Prilosec, Ozempic Review of Systems: Could not be obtained Physical Examination: 73-year-old male, intubated ,Blood pressure 125/50, Heart rate 70 Head: Normocephalic. Eyes: Sclerae nonicteric. Neck: Good carotid upstroke, no bruit, no jugular venous distention. Lungs: Clear to auscultation anteriorly. Heart: Regular rate and rhythm, S1-S2, no S3, plus rub. No murmur. Abdomen: Soft hypoactive bowel sounds, no organomegaly. Extremities: No edema, intact distal pulses, John wrap in place. Labs: Hemoglobin 11.8, WBC 14.9, potassium 3.8, BUN 13, creatinine 0.6 EKG: Pending Impression: 1. Status post CABG 2. History of hypertension 3. History of hyperlipidemia 4. History of diabetes Plan: 1. Routine postoperative care 2. Wean and hopefully extubate soon 3. Once extubated reinitiate beta tez and statin 4. Depending on his blood pressure JOHN inhibitor will be reinitiated 5. Thank you for this consult we will follow with you. Past Medical History Past Medical History: Cancer, Diabetes Mellitus, GERD/Reflux, Hyperlipidemia, Hypertension Additional Past Medical History / Comment(s): History of diverticulitis with subsequent bowel perforation and colostomy placement with subsequent reversal of the colostomy,covid infection 2019 or 2020 History of Any Multi-Drug Resistant Organisms: None Reported Past Surgical History: Bowel Resection, Heart Catheterization Additional Past Surgical History / Comment(s): Bilateral eye cataract s urgery,colostomy later reversed Past Anesthesia/Blood Transfusion Reactions: Postoperative Nausea & Vomiting (PONV) Additional Past Anesthesia/Blood Transfusion Reaction / Comment(s): no hx blood transfusion Smoking Status: Never smoker - Past Family History Mother Family Medical History: No Reported History Father Family Medical History: Myocardial Infarction (CO) Brother(s) Family Medical History: Coronary Artery Disease (CAD) Additional Family Medical History / Comment(s): CABG 4 vessels in pt's late 40' Medications and Allergies Home Medications Medication Instructions Recorded Confirmed Type Aspirin 81 mg PO DAILY 05/08/16 04/12/23 History Multivitamin [Men's Multi-Vitamin] 1 each PO DAILY 05/08/16 04/12/23 History metFORMIN HCL [Glucophage] 1,000 mg PO BID 05/08/16 04/12/23 History Nitroglycerin Sl Tabs [Nitrostat] 0.4 mg SUBLINGUAL Q5M PRN #25 tab 03/31/23 04/12/23 Rx Atorvastatin [Lipitor] 40 mg PO HS 04/01/23 04/12/23 History Omeprazole [PriLOSEC] 20 mg PO DAILY PRN 04/01/23 04/12/23 History Semaglutide [Ozempic] 0.5 ml SQ WEEKLY 04/01/23 04/12/23 History Isosorbide Mononitrate ER [Imdur] 30 mg PO DAILY #30 tab 04/02/23 04/12/23 Rx Metoprolol Tartrate [Lopressor] 25 mg PO BID #60 tab 04/02/23 04/12/23 Rx amLODIPine [Norvasc] 5 mg PO DAILY #30 tab 04/02/23 04/12/23 Rx lisinopriL [Zestril] 10 mg PO DAILY #30 tab 04/02/23 04/12/23 Rx Allergies Allergy/AdvReac Type Severity Reaction Status Date / Time No Known Allergies Allergy Verified 04/14/23 06:54 Physical Exam Vitals: Vital Signs Temp Pulse Pulse Resp BP BP Pulse Ox 04/14/23 15:00 97.7 F 70 14 93 L 04/14/23 14:45 75 14 94 L 04/14/23 14:30 73 16 95 04/14/23 14:15 72 14 97 04/14/23 14:00 97.0 F L 71 14 96 04/14/23 13:51 04/14/23 13:45 73 14 98 04/14/23 13:30 68 14 98 04/14/23 13:18 04/14/23 13:15 66 14 98 04/14/23 13:13 68 16 97 04/14/23 13:11 04/14/23 07:15 97.8 F 73 16 144/81 161/87 95 FiO2 04/14/23 15:00 04/14/23 14:45 04/14/23 14:30 50 04/14/23 14:15 04/14/23 14:00 100 04/14/23 13:51 60 04/14/23 13:45 04/14/23 13:30 04/14/23 13:18 100 04/14/23 13:15 04/14/23 13:13 100 04/14/23 13:11 100 04/14/23 07:15 Intake and Output 04/14/23 04/14/23 04/14/23 06:59 14:59 22:59 Intake Total 351.033 179 Output Total 1220 220 Balance -868.967 -41 Intake: IV 333 179 ACETAMINOPHEN IV (For NPO 100 ) 1,000 mg In Empty Bag 1 bag @ 400 mls/hr IVPB Q6HR [facility] Rx#:[id number] CO/CI 20 20 LR 50 50 Magnesium Sulfate-D5w Pmx 100 1 gm In Dextrose/Water 1 100ml.bag @ 100 mls/hr IVPB Q1H [facility] Rx#: [id number] pressure bags 9 9 Intake, IV Titration 18.033 Amount Clevidipine Butyrate 25 16.033 mg In Empty Bag 1 bag @ 1 MG/HR 2 mls/hr IV .Q24H [facility] Rx#:[id number] Nitroglycerin-D5w Pmx 50 2 mg In Dextrose/Water 1 250ml.bag @ 5 MCG/MIN 1.5 mls/hr IV .Q24H [facility] Rx#: [id number] Output: Chest Tube Drainage 75 70 1 MS 55 20 2 L/R Pl 20 50 Drainage 20 L. arm KRYSTAL 20 Urine 475 150 Estimated Blood Loss 650 Other: Voiding Method Indwelling Catheter Weight 78.1 kg ABP, PAP, CO, CI - Last 8 Hours Arterial Blood Pressure 125/51 Arterial Blood Pressure 132/58 Arterial Blood Pressure 134/57 Arterial Blood Pressure 130/52 Arterial Blood Pressure 115/52 Arterial Blood Pressure 131/57 Arterial Blood Pressure 137/60 Arterial Blood Pressure 128/66 Pulmonary Artery Pressure 34/18 Pulmonary Artery Pressure 35/20 Pulmonary Artery Pressure 35/19 Pulmonary Artery Pressure 35/19 Pulmonary Artery Pressure 32/18 Pulmonary Artery Pressure 34/19 Pulmonary Artery Pressure 34/15 Cardiac Output 8.7 Cardiac Output 7 Cardiac Output 5.7 Cardiac Index 4.6 Cardiac Index 3.7 Cardiac Index 3 Results 04/14/23 14:55 04/14/23 13:17 Cardiac Enzymes 04/14/23 Range/Units 13:17 AST 16 L (17-59) U/L Coagulation 04/14/23 Range/Units 13:17 PT 12.9 H (10.0-12.5) sec APTT 24.3 (22.0-30.0) sec CBC 04/14/23 04/14/23 Range/Units 13:17 14:55 WBC 11.1 H 14.9 H (3.8-10.6) k/uL RBC 3.25 L 3.80 L (4.30-5.90) m/uL Hgb 10.0 L D 11.8 L (13.0-17.5) gm/dL Hct 29.0 L 34.2 L (39.0-53.0) % Plt Count 195 260 (150-450) k/uL Comprehensive Metabolic Panel 04/14/23 04/14/23 Range/Units 07:15 13:17 Sodium 138 (137-145) mmol/L Potassium 3.8 3.8 (3.5-5.1) mmol/L Chloride 109 H (98-107) mmol/L Carbon Dioxide 19 L (22-30) mmol/L BUN 13 (9-20) mg/dL Creatinine 0.60 L (0.66-1.25) mg/dL Glucose 107 H (74-99) mg/dL Calcium 8.3 L (8.4-10.2) mg/dL AST 16 L (17-59) U/L ALT 11 (4-49) U/L Alkaline Phosphatase 37 L (38-126) U/L Total Protein 4.9 L (6.3-8.2) g/dL Albumin 3.2 L (3.5-5.0) g/dL Current Medications Generic Name Dose Route Start Last Admin Trade Name Freq PRN Reason Stop Dose Admin Hydrocodone Bitart/Acetaminophen 1 each 04/14/23 23:54 Hydrocodone/Apap 5-325mg 1 Each Tab PO Q4HR PRN Moderate Pain (Scale 4 to 6) Hydrocodone Bitart/Acetaminophen 1 each 04/14/23 13:17 Hydrocodone/Apap 10-325mg 1 Each Tab PO Q4HR PRN Severe Pain (Scale 7 to 10) Albuterol/Ipratropium 3 ml 04/14/23 13:17 Ipratropium-Albuterol 3 Ml Neb INHALATION RT-Q2H PRN Shortness Of Breath Or Wheezing Albuterol/Ipratropium 3 ml 04/14/23 13:17 04/14/23 13:52 Ipratropium-Albuterol 3 Ml Neb INHALATION 04/14/23 19:18 Not Given RT-Q4H WOODY Albuterol/Ipratropium 3 ml 04/14/23 20:00 Ipratropium-Albuterol 3 Ml Neb INHALATION RT-QID [facility] Aspirin 325 mg 04/15/23 09:00 Aspirin 325 Mg Tab PO DAILY [facility] Atorvastatin Calcium 40 mg 04/15/23 09:00 Atorvastatin 40 Mg Tab PO DAILY [facility] Benzocaine/Menthol 1 each 04/14/23 13:17 Benzocaine/Menthol Lozeng 1 Each Lozenge MUCOUS MEM Q2H PRN Sore Throat Bisacodyl 10 mg 04/15/23 09:00 Bisacodyl 10 Mg Supp RECTAL DAILY PRN Constipation Clopidogrel Bisulfate 75 mg 04/15/23 09:00 Clopidogrel 75 Mg Tab PO DAILY [facility] Dextrose/Water 25 ml 04/14/23 13:17 Dextrose 50% Syringe 50 Ml IVP PER PROTOCOL PRN Hypoglycemia Protocol Dextrose/Water 50 ml 04/14/23 13:17 Dextrose 50% Syringe 50 Ml IVP PER PROTOCOL PRN Hypoglycemia Protocol Heparin Sodium (Porcine) 5,000 unit 04/14/23 16:00 Heparin Sodium,Porcine 5,000 Unit/Ml 1 Ml Vial SQ Q8HR [facility] Clevidipine 25 mg/ IV Solution 50 mls @ 2 mls/hr 04/14/23 13:17 04/14/23 14:32 IV 12 mg/hr .Q24H WOODY 24 mls/hr Administration Protocol 1 MG/HR Diltiazem HCl 125 mg/ Sodium 125 mls @ 5 mls/hr 04/14/23 13:17 04/14/23 13:34 Chloride IV 5 mg/hr .Q24H WOODY 5 mls/hr Administration 5 MG/HR Amiodarone HCl 150 mg/ 103 mls @ 618 mls/hr 04/14/23 13:17 Dextrose/Water IV .Q10M PRN A.FIB/FLUTTER Protocol Amiodarone HCl 360 mg/ 207.2 mls @ 34.533 mls/hr 04/14/23 13:17 Dextrose/Water IV .Q6H PRN A.FIB/FLUTTER Protocol 1 MG/MIN Amiodarone HCl 450 mg/ 250 mls @ 16.667 mls/hr 04/14/23 13:17 Dextrose/Water IV .Q15H PRN A.FIB/FLUTTER Protocol 0.5 MG/MIN Albumin Human 250 ml/ IV 250 mls @ 250 mls/hr 04/14/23 13:17 Solution IVPB 04/16/23 13:18 Q1HR PRN For Volume Protocol Lactated Ringer's 1,000 mls @ 50 mls/hr 04/14/23 13:17 04/14/23 13:31 Lactated Ringers IV 50 mls/hr .Q20H [facility]ODY Administration Acetaminophen 1,000 mg/ IV 100 mls @ 400 mls/hr 04/14/23 13:17 04/14/23 14:03 Solution IVPB 04/14/23 18:14 400 mls/hr Q6HR WOODY Administration Cefazolin Sodium 2 gm/ Sodium 50 mls @ 100 mls/hr 04/14/23 17:00 Chloride IVPB 04/15/23 09:29 Q8H [facility] Protocol Calcium Gluconate/Sodium 100 mls @ 100 mls/hr 04/14/23 13:17 Chloride 2 gm/ IV Solution IVPB 05/14/23 13:18 ONCE PRN Ionized Calcium less than 4.4 Insulin Human Regular 100 unit 101 mls @ 0 mls/hr 04/14/23 13:17 04/14/23 14:02 / Sodium Chloride IV 1.5 units/hr .Q0M [facility] 1.515 mls/hr Administration Protocol Per Protocol Nitroglycerin/Dextrose 50 mg/ 250 mls @ 1.5 mls/hr 04/14/23 13:17 04/14/23 14:12 IV Solution IV 5 mcg/min .Q24H [facility] 1.5 mls/hr Infusion 5 MCG/MIN Propofol 1,000 mg/ IV Solution 100 mls @ 0 mls/hr 04/14/23 13:17 04/14/23 13:53 IV 40 mcg/kg/min .Q0M WOODY 18.744 mls/hr Administration Protocol Titrate Magnesium Sulfate/Dextrose 1 100 mls @ 100 mls/hr 04/14/23 14:30 04/14/23 14:44 gm/ IV Solution IVPB 04/14/23 16:29 100 mls/hr Q1H [facility] Administration Protocol Dexmedetomidine HCl 400 mcg/ 100 mls @ 3.905 mls/hr 04/14/23 15:15 IV Solution IV .Q24H [facility]ODY Protocol 0.2 MCG/KG/HR Magnesium Hydroxide 2,400 mg 04/15/23 09:00 Magnesium Hydroxide 2,400 Mg/30 Ml Cup PO BID PRN Constipation Metoclopramide HCl 10 mg 04/14/23 13:17 Metoclopramide 5 Mg/Ml 2 Ml Vial IVP Q4H PRN Nausea And Vomiting Metoprolol Tartrate 12.5 mg 04/15/23 09:00 Metoprolol Tartrate 12.5 Mg Tab PO BID [facility] Miscellaneous Information 1 each 04/14/23 13:17 Magnesium Replacement Protocol 1 Each Misc MISCELLANE DAILY PRN Per Protocol Protocol Miscellaneous Information 1 each 04/14/23 13:17 Potassium Replacement Protocol 1 Each Misc MISCELLANE DAILY PRN Per Protocol Protocol Miscellaneous Information 1 each 04/14/23 13:17 Phosphorus Replacement Protoco 1 Each Misc MISCELLANE DAILY PRN Per Protocol Protocol Ondansetron HCl 4 mg 04/14/23 13:17 Ondansetron 4 Mg/2 Ml Vial IVP Q6HR PRN Nausea And Vomiting Oxycodone HCl 5 mg 04/14/23 23:54 Oxycodone Hcl 5 Mg Tab PO Q6HR PRN Moderate Pain (Scale 4 to 6) Oxycodone HCl 10 mg 04/14/23 13:17 04/14/23 14:44 Oxycodone Hcl 5 Mg Tab PO 10 mg Q4HR PRN Administration Severe Pain (Scale 7 to 10) Pantoprazole Sodium 40 mg 04/15/23 09:00 Pantoprazole 40 Mg/10 Ml Vial IVP DAILY [facility] Senna/Docusate Sodium 2 each 04/15/23 21:00 Sennosides-Docusate Sodium 1 Each Tab PO HS WOODY Sodium Chloride 10 ml 04/14/23 21:00 Sodium Chloride 0.9% Flush 10 Ml Syringe IV BID WOODY Intake and Output 04/14/23 04/14/23 04/14/23 06:59 14:59 22:59 Intake Total 351.033 179 Output Total 1220 220 Balance -868.967 -41 Intake: IV 333 179 ACETAMINOPHEN IV (For NPO 100 ) 1,000 mg In Empty Bag 1 bag @ 400 mls/hr IVPB Q6HR [facility] Rx#:[id number] CO/CI 20 20 LR 50 50 Magnesium Sulfate-D5w Pmx 100 1 gm In Dextrose/Water 1 100ml.bag @ 100 mls/hr IVPB Q1H [facility] Rx#: [id number] pressure bags 9 9 Intake, IV Titration 18.033 Amount Clevidipine Butyrate 25 16.033 mg In Empty Bag 1 bag @ 1 MG/HR 2 mls/hr IV .Q24H [facility] Rx#:[id number] Nitroglycerin-D5w Pmx 50 2 mg In Dextrose/Water 1 250ml.bag @ 5 MCG/MIN 1.5 mls/hr IV .Q24H [facility] Rx#: [id number] Output: Chest Tube Drainage 75 70 1 MS 55 20 2 L/R Pl 20 50 Drainage 20 L. arm KRYSTAL 20 Urine 475 150 Estimated Blood Loss 650 Other: Voiding Method Indwelling Catheter Weight 78.1 kg 04/14/23 14:55 04/14/23 13:17
[2023-04-14 16:01] LABS: Glucose,Whole Blood 190 mg/dL (70-110)
[2023-04-14 16:38] LABS: ABG Base Excess -7.3 mmol/L; ABG HCO3 19 mmol/L (21-25); ABG Oxygen Saturation 98.4 % (94-97); ABG PCO2 38 mmHg (35-45); ABG PH 7.31 (7.35-7.45); ABG PO2 111 mmHg (83-108); ABG TCO2 20 mmol/L (19-24); Allen Test Performed? NO
[2023-04-14] MEDS: ALBUMIN HUMAN 5% 250 ML in EMPTY BAG 1 BAG IVPB PRN (16:54)
[2023-04-14] MEDS: HEPARIN SODIUM,PORCINE 5,000 UNIT/ML 1 ML VIAL SQ SCH ×2 (16:59→22:54)
[2023-04-14 17:06] LABS: Glucose,Whole Blood 194 mg/dL (70-110)
--- NOTE | 2023-04-14 17:35 | P.CNPUL ---
History of Present Illness Consult date: 04/14/23 Requesting physician: Yfn Huertas Reason for consult: other (Mechanical ventilator/critical care management) Chief complaint: Coronary artery disease History of present illness: This is a pleasant 73-year-old male patient with a known history of IVs mellitus, type II, hyperlipidemia, hypertension, family history of early onset coronary artery disease. He had been having issues with heartburn and did undergo stress testing and subsequent cardiac catheterization. He was recommended coronary revascularization. He was brought in today electively. He did undergo off-pump coronary artery bypass grafting with a PUCKETT to the LAD, sequential left radial artery graft to the first and second obtuse marginal branches of the circumflex artery, saphenous vein graft to the RCA and left atrial appendage clipping. He is seen today in consultation in the intensive care unit. He was successfully extubated at 3-1/2 hours. He is currently awake and alert. He is in the 90s on 5 L/m per nasal cannula. He is on a insulin drip at 3.5 units per hour. Nitroglycerin drip at 5 mcg/m. Cardizem drip at 5 mg per hour. Lactated Ringer's at 50 MLS per hour. He has right left and mediastinal chest tubes in place. Pacer wires in place. Right IJ [place]Fab[place] catheter in place. PA pressure 23/10. CVP of 4. Cardiac output 5.7. Cardiac index 3.0. He did receive albumin. Asked x-ray reveals limited inspiration with left lower lobe consolidation and small effusion. Tiny left apical pneumothorax measuring less than 5%. White count 14.9. Hemoglobin 11.8. Platelets 260. Sodium 138. Potassium 3.8. Bicarb 19. BUN 9013. Creatinine 0.69. Glucose 194. Ionized calcium 4.8. Magnesium 1.5. AST 16. ALT 11. Albumin 3.2. Arterial blood gases prior to extubation revealed a pO2 of 111, pCO2 38 and a pH of 7.31 on 50% FiO2. Review of Systems REVIEW OF SYSTEMS: CONSTITUTIONAL: Denies any recent significant weight loss or weight gain. EYES: Denies change in vision. EARS, NOSE, MOUTH, THROAT: Denies headaches, denies sore throat. CARDIOVASCULAR: Positive for surgical chest pain, no palpitations or syncopal episodes. RESPIRATORY: Denies shortness of breath, cough, congestion or hemoptysis. GASTROINTESTINAL: Denies change in appetite, denies abdominal pain GENITOURINARY: Denies hematuria, denies infections. MUSKULOSKELETAL: Denies pain, denies swelling. INTEGUMENTARY: Denies rash, denies eczema. NEUROLOGICAL: Denies recent memory loss, no recent seizure activity. PSYCHIATRIC: Denies anxiety, denies depression. HEMATOLOGIC/LYMPHATIC: Denies anemia, denies enlarged lymph nodes. Past Medical History Past Medical History: Cancer, Diabetes Mellitus, GERD/Reflux, Hyperlipidemia, Hypertension Additional Past Medical History / Comment(s): History of diverticulitis with subsequent bowel perforation and colostomy placement with subsequent reversal of the colostomy,covid infection 2019 or 2020 History of Any Multi-Drug Resistant Organisms: None Reported Past Surgical History: Bowel Resection, Heart Catheterization Additional Past Surgical History / Comment(s): Bilateral eye cataract surgery,colostomy later reversed Past Anesthesia/Blood Transfusion Reactions: Postoperative Nausea & Vomiting (PONV) Additional Past Anesthesia/Blood Transfusion Reaction / Comment(s): no hx blood transfusion Smoking Status: Never smoker - Past Family History Mother Family Medical History: No Reported History Father Family Medical History: Myocardial Infarction ([place]) Brother(s) Family Medical History: Coronary Artery Disease (CAD) Additional Family Medical History / Comment(s): CABG 4 vessels in pt's late 40s Medications and Allergies Home Medications Medication Instructions Recorded Confirmed Type Aspirin 81 mg PO DAILY 05/08/16 04/12/23 History Multivitamin [Men's Multi-Vitamin] 1 each PO DAILY 05/08/16 04/12/23 History metFORMIN HCL [Glucophage] 1,000 mg PO BID 05/08/16 04/12/23 History Nitroglycerin Sl Tabs [Nitrostat] 0.4 mg SUBLINGUAL Q5M PRN #25 tab 03/31/23 04/12/23 Rx Atorvastatin [Lipitor] 40 mg PO HS 04/01/23 04/12/23 History Omeprazole [PriLOSEC] 20 mg PO DAILY PRN 04/01/23 04/12/23 History Semaglutide [Ozempic] 0.5 ml SQ WEEKLY 04/01/23 04/12/23 History Isosorbide Mononitrate ER [Imdur] 30 mg PO DAILY #30 tab 04/02/23 04/12/23 Rx Metoprolol Tartrate [Lopressor] 25 mg PO BID #60 tab 04/02/23 04/12/23 Rx amLODIPine [Norvasc] 5 mg PO DAILY #30 tab 04/02/23 04/12/23 Rx lisinopriL [Zestril] 10 mg PO DAILY #30 tab 04/02/23 04/12/23 Rx Allergies Allergy/AdvReac Type Severity Reaction Status Date / Time No Known Allergies Allergy Verified 04/14/23 06:54 Physical Exam Vitals: Vital Signs Temp Pulse Pulse Resp BP BP Pulse Ox 04/14/23 16:01 04/14/23 16:00 98.1 F 78 24 94 L 04/14/23 15:45 66 15 93 L 04/14/23 15:30 87 109 H 91 L 04/14/23 15:15 70 15 93 L 04/14/23 15:00 97.7 F 70 14 93 L 04/14/23 14:45 75 14 94 L 04/14/23 14:30 73 16 95 04/14/23 14:15 72 14 97 04/14/23 14:00 97.0 F L 71 14 96 04/14/23 13:51 04/14/23 13:45 73 14 98 04/14/23 13:30 68 14 98 04/14/23 13:18 04/14/23 13:15 66 14 98 04/14/23 13:13 68 16 97 04/14/23 13:11 04/14/23 07:15 97.8 F 73 16 144/81 161/87 95 FiO2 04/14/23 16:01 50 04/14/23 16:00 50 04/14/23 15:45 04/14/23 15:30 04/14/23 15:15 04/14/23 15:00 04/14/23 14:45 04/14/23 14:30 50 04/14/23 14:15 04/14/23 14:00 100 04/14/23 13:51 60 04/14/23 13:45 04/14/23 13:30 04/14/23 13:18 100 04/14/23 13:15 04/14/23 13:13 100 04/14/23 13:11 100 04/14/23 07:15 Intake and Output 10/04/14/23 04/14/23 06:59 14:59 22:59 Intake Total 351.033 444.277 Output Total 1220 350 Balance -868.967 94.277 Intake: IV 333 358 ACETAMINOPHEN IV (For NPO 100 ) 1,000 mg In Empty Bag 1 bag @ 400 mls/hr IVPB Q6HR [facility] Rx#:[id number] CO/CI 20 40 LR 50 100 Magnesium Sulfate-D5w Pmx 200 1 gm In Dextrose/Water 1 100ml.bag @ 100 mls/hr IVPB Q1H [facility] Rx#: [id number] pressure bags 9 18 Intake, IV Titration 18.033 86.277 Amount Clevidipine Butyrate 25 16.033 38.333 mg In Empty Bag 1 bag @ 1 MG/HR 2 mls/hr IV .Q24H [facility] Rx#:[id number] Dexmedetomidine/0.9% NaCl 9.795 (Pmx) 400 mcg In Empty Bag 1 bag @ 0.2 MCG/KG/HR 3.905 mls/hr IV .Q24H [facility] Rx#:[id number] Insulin Regular 100 unit 3.005 In Sodium Chloride 0.9% 100 ml @ Per Protocol IV .Q0M [facility] Rx#:[id number] Nitroglycerin-D5w Pmx 50 2 mg In Dextrose/Water 1 250ml.bag @ 5 MCG/MIN 1.5 mls/hr IV .Q24H [facility] Rx#: [id number] propofoL 1,000 mg In 35.144 Empty Bag 1 bag @ Titrate IV .Q0M [facility] Rx#: [id number] Output: Chest Tube Drainage 75 100 1 MS 55 30 2 L/R Pl 20 70 Drainage 20 L. arm KRYSTAL 20 Urine 475 250 Estimated Blood Loss 650 Other: Voiding Method Indwelling Catheter Indwelling Catheter Weight 78.1 kg ABP, PAP, CO, CI - Last 8 Hours Arterial Blood Pressure 122/48 Arterial Blood Pressure 113/47 Arterial Blood Pressure 134/55 Arterial Blood Pressure 128/53 Arterial Blood Pressure 125/51 Arterial Blood Pressure 132/58 Arterial Blood Pressure 134/57 Arterial Blood Pressure 130/52 Arterial Blood Pressure 115/52 Arterial Blood Pressure 131/57 Arterial Blood Pressure 137/60 Arterial Blood Pressure 128/66 Pulmonary Artery Pressure 28/13 Pulmonary Artery Pressure 30/16 Pulmonary Artery Pressure 37/20 Pulmonary Artery Pressure 34/19 Pulmonary Artery Pressure 34/18 Pulmonary Artery Pressure 35/20 Pulmonary Artery Pressure 35/19 Pulmonary Artery Pressure 35/19 Pulmonary Artery Pressure 32/18 Pulmonary Artery Pressure 34/19 Pulmonary Artery Pressure 34/15 Cardiac Output 7.8 Cardiac Output 8.7 Cardiac Output 7 Cardiac Output 5.7 Cardiac Index 4.1 Cardiac Index 4.6 Cardiac Index 3.7 Cardiac Index 3 GENERAL EXAM: Alert, oriented 73-year-old male patient, on 5 L high flow nasal cannula, fairly comfortable in no apparent distress. HEAD: Normocephalic. EYES: Normal reaction of pupils, equal size. NOSE: Clear with pink turbinates. THROAT: No erythema or exudates. NECK: Right IJ [place] catheter in place No masses, no JVD. CHEST: Sternal dressing dry and intact. Heart hugger in place. Right, left and mediastinal chest tubes in place. Pacer wires in place. LUNGS: Equal air entry with crackles in the left lung base. CVS: S1 and S2 normal with no audible murmur, regular rhythm. ABDOMEN: No hepatosplenomegaly, hypoactive bowel sounds, no guarding or rigidity. SPINE: No scoliosis or deformity SKIN: No rashes CENTRAL NERVOUS SYSTEM: No focal deficits, tone is normal in all 4 extremities. EXTREMITIES: John wrap so bilateral lower extremities. Arterial line in place. There is no peripheral edema. No clubbing, no cyanosis. Peripheral pulses are intact. Results - Laboratory Findings CBC and BMP: 04/14/23 14:55 04/14/23 13:17 ABG ABG pH 7.31 (7.35-7.45) L 04/14/23 16:29 ABG pCO2 38 mmHg (35-45) 04/14/23 16:29 ABG pO2 111 mmHg (83-108) H 04/14/23 16:29 ABG O2 Saturation 98.4 % (94-97) H 04/14/23 16:29 PT/INR, D-dimer PT 12.9 sec (10.0-12.5) H 04/14/23 13:17 INR 1.2 (<1.2) H 04/14/23 13:17 Abnormal lab findings: Abnormal Labs 04/09/23 04/14/23 04/14/23 08:29 07:19 07:30 WBC RBC Hgb Hct Neutrophils # PT INR ABG pH ABG pO2 170 H ABG HCO3 ABG Total CO2 25 H ABG O2 Saturation 99.7 H ABG Hematocrit ABG Glucose 125 H Hemoglobin Chloride Carbon Dioxide Creatinine Glucose POC Glucose (mg/dL) 119 H Calcium Magnesium AST Alkaline Phosphatase Total Protein Albumin Arterial Blood Glucose 125 H Crossmatch See Detail 04/14/23 04/14/23 04/14/23 07:30 07:30 07:30 WBC RBC Hgb Hct Neutrophils # PT INR ABG pH ABG pO2 274 H 215 H 184 H ABG HCO3 ABG Total CO2 25 H ABG O2 Saturation 99.9 H 99.9 H 99.7 H ABG Hematocrit 33 L ABG Glucose 122 H 113 H 106 H Hemoglobin 12.4 L 11.3 L 10.6 L Chloride Carbon Dioxide Creatinine Glucose POC Glucose (mg/dL) Calcium Magnesium AST Alkaline Phosphatase Total Protein Albumin Arterial Blood Glucose 122 H 113 H 106 H Crossmatch 04/14/23 04/14/23 04/14/23 07:30 13:17 13:17 WBC 11.1 H RBC 3.25 L Hgb 10.0 L D Hct 29.0 L Neutrophils # 9.6 H PT 12.9 H INR 1.2 H ABG pH ABG pO2 116 H ABG HCO3 ABG Total CO2 ABG O2 Saturation 99.1 H ABG Hematocrit 32 L ABG Glucose 120 H Hemoglobin 10.5 L Chloride Carbon Dioxide Creatinine Glucose POC Glucose (mg/dL) Calcium Magnesium AST Alkaline Phosphatase Total Protein Albumin Arterial Blood Glucose 120 H Crossmatch 04/14/23 04/14/23 04/14/23 13:17 13:22 13:44 WBC RBC Hgb Hct Neutrophils # PT INR ABG pH 7.33 L ABG pO2 258 H ABG HCO3 ABG Total CO2 ABG O2 Saturation 99.6 H ABG Hematocrit ABG Glucose Hemoglobin Chloride 109 H Carbon Dioxide 19 L Creatinine 0.60 L Glucose 107 H POC Glucose (mg/dL) 116 H Calcium 8.3 L Magnesium 1.5 L AST 16 L Alkaline Phosphatase 37 L Total Protein 4.9 L Albumin 3.2 L Arterial Blood Glucose Crossmatch 04/14/23 04/14/23 04/14/23 13:58 14:55 14:56 WBC 14.9 H RBC 3.80 L Hgb 11.8 L Hct 34.2 L Neutrophils # 12.8 H PT INR ABG pH ABG pO2 ABG HCO3 ABG Total CO2 ABG O2 Saturation ABG Hematocrit ABG Glucose Hemoglobin Chloride Carbon Dioxide Creatinine Glucose POC Glucose (mg/dL) 152 H 155 H Calcium Magnesium AST Alkaline Phosphatase Total Protein Albumin Arterial Blood Glucose Crossmatch 04/14/23 04/14/23 04/14/23 16:00 16:29 17:04 WBC RBC Hgb Hct Neutrophils # PT INR ABG pH 7.31 L ABG pO2 111 H ABG HCO3 19 L ABG Total CO2 ABG O2 Saturation 98.4 H ABG Hematocrit ABG Glucose Hemoglobin Chloride Carbon Dioxide Creatinine Glucose POC Glucose (mg/dL) 190 H 194 H Calcium Magnesium AST Alkaline Phosphatase Total Protein Albumin Arterial Blood Glucose Crossmatch - Diagnostic Findings Chest x-ray: image reviewed Assessment and Plan Assessment: Coronary artery disease status post coronary artery bypass grafting with a PUCKETT to the LAD, sequential left radial artery graft to the first and second obtuse m arginal branches of the circumflex artery, saphenous vein graft to the RCA and left atrial appendage clipping. Post operative day #0 Diabetes mellitus, type II Hyperlipidemia Hypertension History of diverticulitis with subsequent bowel for aeration with colostomy placement and subsequent reversal Lifelong nonsmoker Plan: The patient was seen and evaluated Chest x-ray, ABGs, labs and medications reviewed Extubated within 4 hours Currently on 5 L nasal cannula Titrate the FiO2 as tolerated Encourage the increased use of the incentive spirometer Monitor closely here in the intensive care unit We will continue to follow and make further recommendations based on his clinical status I have personally seen and examined the patient, performed the documentation and the assessment and plan as written. Number of minutes spent on the visit: 20.
[2023-04-14 18:02] LABS: Glucose,Whole Blood 170 mg/dL (70-110)
[2023-04-14 18:17] LABS: Basophils % (A) 0 %; Eosinophils % (A) 0 %; HCT 31.9 % (39.0-53.0); HGB 11.2 gm/dL (13.0-17.5); Lymphocytes # (A) 0.6 k/uL (1.0-4.8); Lymphocytes % (A) 4 %; MCH 31.4 pg (25.0-35.0); MCHC 35.1 g/dL (31.0-37.0); MCV 89.4 fL (80.0-100.0); Mean Platelet Volume 7.8; Monocytes # (A) 0.5 k/uL (0-1.0); Monocytes % (A) 3 %; Neutrophils # (A) 13.9 k/uL (1.3-7.7); Neutrophils % (A) 93 %; Platelet Count 219 k/uL (150-450); RBC 3.57 m/uL (4.30-5.90); RDW 13.8 % (11.5-15.5)
[2023-04-14 18:55] LABS: Glucose,Whole Blood 175 mg/dL (70-110)
[2023-04-14 20:02] LABS: Glucose,Whole Blood 144 mg/dL (70-110)
[2023-04-14] MEDS: HYDROcodone/APAP 5-325MG 1 EACH TAB PO PRN (20:11)
[2023-04-14 21:01] LABS: Glucose,Whole Blood 146 mg/dL (70-110)
[2023-04-14 22:00] LABS: Glucose,Whole Blood 150 mg/dL (70-110)
[2023-04-14] MEDS: HYDROcodone/APAP 10-325MG 1 EACH TAB PO PRN (22:33)
[2023-04-15] MEDS: HYDROcodone/APAP 10-325MG 1 EACH TAB PO PRN ×3 (02:20→11:21)
[2023-04-15] MEDS: HYDROcodone/APAP 5-325MG 1 EACH TAB PO PRN ×3 (04:07→21:12)
[2023-04-15 05:41] LABS: Glucose,Whole Blood 139 mg/dL (70-110)
[2023-04-15 05:42] LABS: Glucose,Whole Blood 117 mg/dL (70-110)
[2023-04-15 05:42] LABS: Glucose,Whole Blood 131 mg/dL (70-110)
[2023-04-15 05:42] LABS: Glucose,Whole Blood 116 mg/dL (70-110)
[2023-04-15 05:42] LABS: Glucose,Whole Blood 120 mg/dL (70-110)
[2023-04-15 05:42] LABS: Glucose,Whole Blood 121 mg/dL (70-110)
[2023-04-15 05:42] LABS: Glucose,Whole Blood 115 mg/dL (70-110)
[2023-04-15 05:50] LABS: Basophils % (A) 0 %; Eosinophils % (A) 0 %; HCT 34.4 % (39.0-53.0); HGB 11.8 gm/dL (13.0-17.5); Lymphocytes # (A) 0.6 k/uL (1.0-4.8); Lymphocytes % (A) 6 %; MCHC 34.1 g/dL (31.0-37.0); MCV 87.8 fL (80.0-100.0); Mean Platelet Volume 7.5; Monocytes # (A) 0.4 k/uL (0-1.0); Monocytes % (A) 4 %; Neutrophils # (A) 9.3 k/uL (1.3-7.7); Neutrophils % (A) 90 %; Platelet Count 264 k/uL (150-450); RBC 3.92 m/uL (4.30-5.90); RDW 13.5 % (11.5-15.5); WBC 10.4 k/uL (3.8-10.6)
[2023-04-15] MEDS ORDERED: POTASSIUM CHLORIDE ER 20 MEQ TAB.ER PO SCH (06:00)
[2023-04-15 06:04] LABS: ALT 12 U/L (4-49); AST 22 U/L (17-59); African American GFR (CKD) >90 (>60 ml/min/1.73 sqM); Albumin 3.7 g/dL (3.5-5.0); Alkaline Phosphatase 42 U/L (38-126); Anion Gap 11 mmol/L; Blood Urea Nitrogen 10 mg/dL (9-20); Calcium 8.6 mg/dL (8.4-10.2); Carbon Dioxide 20 mmol/L (22-30); Chloride 102 mmol/L (98-107); Glucose 110 mg/dL (74-99); Non-African American GFR(CKD) >90 (>60 ml/min/1.73 sqM); Potassium 3.7 mmol/L (3.5-5.1); Sodium 133 mmol/L (137-145); Total Bilirubin 0.6 mg/dL (0.2-1.3); Total Protein 5.7 g/dL (6.3-8.2)
[2023-04-15] MEDS: CLEVIDIPINE BUTYRATE 25 MG in EMPTY BAG 1 BAG IV SCH (06:07)
[2023-04-15 06:15] LABS: Glucose,Whole Blood 134 mg/dL (70-110)
[2023-04-15 06:57] LABS: Ionized Calcium 4.7 mg/dL (4.5-5.3)
[2023-04-15 07:04] LABS: Glucose,Whole Blood 129 mg/dL (70-110)
--- NOTE | 2023-04-15 07:44 | P.PN ---
Subjective Progress Note Date: 04/15/23 PROGRESS NOTE The patient is a 73-year-old male with a family history of premature CAD, hypertension, diabetes and hyperlipidemia, followed by Dr. Sidhu who presented earlier this month with symptoms of chest discomfort and had a significantly abnormal stress test. He subsequently underwent cardiac catheterization on April 01 and was found to have significant obstructive disease involving the RCA, LAD and left circumflex. He was admitted today electively and underwent coronary artery bypass grafting. He received a PUCKETT to LAD and left radial to the first and second obtuse marginal branch and SVG to the RCA with closure of the left atrial appendage. He is intubated, starting to wake up. In sinus mechanism and hemodynamically stable. He has no history of CHF or significant valvular disease. There is no history of atrial fibrillation. April 15: The patient is extubated, sitting up in the chair. He is in sinus mechanism. He denies any significant dyspnea. He has soreness in the chest. He denies any nausea or vomiting. Hemodynamically he is stable on no vasopressors. His urinary output is been stable. Medications: Aspirin, Lasix 75 mg daily, Norvasc 5 mg daily, metoprolol 25 mg twice a day, Lipitor 40 mg daily. PHYSICAL EXAMINATION: Blood pressure 133/55 heart rate 80 LUNGS: Clear to auscultation HEART: Regular rate and rhythm, S1, S2. No S3. Systolic ejection murmur, rub noted ABDOMEN: Soft, nontender, no organomegaly EXTREMETIES: No edema LAB: Hemoglobin 11.8, BUN 10, creatinine 0.53 IMPRESSION: 1. Status post CABG, stable 2. History of hypertension 3. History of hyperlipidemia 4. History of diabetes PLAN: 1. Continue present therapy 2. Incentive spirometry 3. Increase physical activity 4. Depending on the progress further recommendations will be made Objective - Vital Signs Vital signs: Vital Signs Temp 99.1 F 04/15/23 00:00 Pulse 84 04/15/23 03:30 Resp 26 H 04/15/23 03:30 BP 144/81 04/14/23 07:15 Pulse Ox 92 L 04/15/23 03:30 FiO2 50 04/14/23 16:01 Intake & Output 04/14/23 04/15/23 04/15/23 18:59 06:59 18:59 Intake Total 7865.709 6496.860 62.2 Output Total 1885 2054 35 Balance -465.961 -844.140 27.2 Weight 79.9 kg Intake: IV 1049 838 59 ACETAMINOPHEN IV (For NPO 200 ) 1,000 mg In Empty Bag 1 bag @ 400 mls/hr IVPB Q6HR [facility] Rx#:[id number] CO/CI 100 80 LR 250 50 Lactated Ringers 1,000 ml 550 50 @ 50 mls/hr IV .Q20H [facility] Rx#:[id number] Magnesium Sulfate-D5w Pmx 200 1 gm In Dextrose/Water 1 100ml.bag @ 100 mls/hr IVPB Q1H [facility] Rx#: [id number] Pressure Bags 45 108 9 ceFAZolin 2 gm In Sodium 100 50 Chloride 0.9% 50 ml @ 100 mls/hr IVPB Q8H [facility] Rx#: [id number] Intake, IV Titration 120.039 72.860 3.2 Amount Clevidipine Butyrate 25 62.966 44.133 3.2 mg In Empty Bag 1 bag @ 1 MG/HR 2 mls/hr IV .Q24H [facility] Rx#:[id number] Dexmedetomidine/0.9% NaCl 9.795 (Pmx) 400 mcg In Empty Bag 1 bag @ 0.2 MCG/KG/HR 3.905 mls/hr IV .Q24H [facility] Rx#:[id number] Insulin Regular 100 unit 10.134 28.727 In Sodium Chloride 0.9% 100 ml @ Per Protocol IV .Q0M [facility] Rx#:[id number] Nitroglycerin-D5w Pmx 50 2 mg In Dextrose/Water 1 250ml.bag @ 5 MCG/MIN 1.5 mls/hr IV .Q24H [facility] Rx#: [id number] propofoL 1,000 mg In 35.144 Empty Bag 1 bag @ Titrate IV .Q0M [facility] Rx#: [id number] Oral 300 Albumin 250 Albumin Human 5% 250 ml 250 In Empty Bag 1 bag @ 250 mls/hr IVPB Q1HR PRN Rx#: [id number] Output: Chest Tube Drainage 240 390 20 1 MS 100 130 0 2 L/R Pl 140 260 20 Drainage 20 40 L. arm KRYSTAL 20 40 Urine 975 1625 15 Estimated Blood Loss 650 Other: Voiding Method Indwelling Catheter Indwelling Catheter ABP, PAP, CO, CI - Last Documented Arterial Blood Pressure 133/55 Pulmonary Artery Pressure 21/6 Cardiac Output 6.9 Cardiac Index 3.7 - Labs CBC & Chem 7: 04/15/23 03:57 04/15/23 03:57 Labs: Abnormal Lab Results - Last 24 Hours (Table) 04/09/23 04/14/23 04/14/23 Range/Units 08:29 07:30 07:30 WBC (3.8-10.6) k/uL RBC (4.30-5.90) m/uL Hgb (13.0-17.5) gm/dL Hct (39.0-53.0) % Neutrophils # (1.3-7.7) k/uL Lymphocytes # (1.0-4.8) k/uL PT (10.0-12.5) sec INR (<1.2) ABG pH (7.35-7.45) ABG pO2 170 H 274 H (83-108) mmHg ABG HCO3 (21-25) mmol/L ABG Total CO2 25 H 25 H (19-24) mmol/L ABG O2 Saturation 99.7 H 99.9 H (94-97) % ABG Hematocrit (34.0-46.0) % ABG Glucose 125 H 122 H (75-99) mg/dL Hemoglobin 12.4 L (13.0-17.5) gm/dL Sodium (137-145) mmol/L Chloride (98-107) mmol/L Carbon Dioxide (22-30) mmol/L Creatinine (0.66-1.25) mg/dL Glucose (74-99) mg/dL POC Glucose (mg/dL) (70-110) mg/dL Calcium (8.4-10.2) mg/dL Magnesium (1.6-2.3) mg/dL AST (17-59) U/L Alkaline Phosphatase (38-126) U/L Total Protein (6.3-8.2) g/dL Albumin (3.5-5.0) g/dL Arterial Blood Glucose 125 H 122 H (75-99) mg/dL Crossmatch See Detail 04/14/23 04/14/23 04/14/23 Range/Units 07:30 07:30 07:30 WBC (3.8-10.6) k/uL RBC (4.30-5.90) m/uL Hgb (13.0-17.5) gm/dL Hct (39.0-53.0) % Neutrophils # (1.3-7.7) k/uL Lymphocytes # (1.0-4.8) k/uL PT (10.0-12.5) sec INR (<1.2) ABG pH (7.35-7.45) ABG pO2 215 H 184 H 116 H (83-108) mmHg ABG HCO3 (21-25) mmol/L ABG Total CO2 (19-24) mmol/L ABG O2 Saturation 99.9 H 99.7 H 99.1 H (94-97) % ABG Hematocrit 33 L 32 L (34.0-46.0) % ABG Glucose 113 H 106 H 120 H (75-99) mg/dL Hemoglobin 11.3 L 10.6 L 10.5 L (13.0-17.5) gm/dL Sodium (137-145) mmol/L Chloride (98-107) mmol/L Carbon Dioxide (22-30) mmol/L Creatinine (0.66-1.25) mg/dL Glucose (74-99) mg/dL POC Glucose (mg/dL) (70-110) mg/dL Calcium (8.4-10.2) mg/dL Magnesium (1.6-2.3) mg/dL AST (17-59) U/L Alkaline Phosphatase (38-126) U/L Total Protein (6.3-8.2) g/dL Albumin (3.5-5.0) g/dL Arterial Blood Glucose 113 H 106 H 120 H (75-99) mg/dL Crossmatch 04/14/23 04/14/23 04/14/23 Range/Units 13:17 13:17 13:17 WBC 11.1 H (3.8-10.6) k/uL RBC 3.25 L (4.30-5.90) m/uL Hgb 10.0 L D (13.0-17.5) gm/dL Hct 29.0 L (39.0-53.0) % Neutrophils # 9.6 H (1.3-7.7) k/uL Lymphocytes # (1.0-4.8) k/uL PT 12.9 H (10.0-12.5) sec INR 1.2 H (<1.2) ABG pH (7.35-7.45) ABG pO2 (83-108) mmHg ABG HCO3 (21-25) mmol/L ABG Total CO2 (19-24) mmol/L ABG O2 Saturation (94-97) % ABG Hematocrit (34.0-46.0) % ABG Glucose (75-99) mg/dL Hemoglobin (13.0-17.5) gm/dL Sodium (137-145) mmol/L Chloride 109 H (98-107) mmol/L Carbon Dioxide 19 L (22-30) mmol/L Creatinine 0.60 L (0.66-1.25) mg/dL Glucose 107 H (74-99) mg/dL POC Glucose (mg/dL) (70-110) mg/dL Calcium 8.3 L (8.4-10.2) mg/dL Magnesium 1.5 L (1.6-2.3) mg/dL AST 16 L (17-59) U/L Alkaline Phosphatase 37 L (38-126) U/L Total Protein 4.9 L (6.3-8.2) g/dL Albumin 3.2 L (3.5-5.0) g/dL Arterial Blood Glucose (75-99) mg/dL Crossmatch 04/14/23 04/14/23 04/14/23 Range/Units 13:22 13:44 13:58 WBC (3.8-10.6) k/uL RBC (4.30-5.90) m/uL Hgb (13.0-17.5) gm/dL Hct (39.0-53.0) % Neutrophils # (1.3-7.7) k/uL Lymphocytes # (1.0-4.8) k/uL PT (10.0-12.5) sec INR (<1.2) ABG pH 7.33 L (7.35-7.45) ABG pO2 258 H (83-108) mmHg ABG HCO3 (21-25) mmol/L ABG Total CO2 (19-24) mmol/L ABG O2 Saturation 99.6 H (94-97) % ABG Hematocrit (34.0-46.0) % ABG Glucose (75-99) mg/dL Hemoglobin (13.0-17.5) gm/dL Sodium (137-145) mmol/L Chloride (98-107) mmol/L Carbon Dioxide (22-30) mmol/L Creatinine (0.66-1.25) mg/dL Glucose (74-99) mg/dL POC Glucose (mg/dL) 116 H 152 H (70-110) mg/dL Calcium (8.4-10.2) mg/dL Magnesium (1.6-2.3) mg/dL AST (17-59) U/L Alkaline Phosphatase (38-126) U/L Total Protein (6.3-8.2) g/dL Albumin (3.5-5.0) g/dL Arterial Blood Glucose (75-99) mg/dL Crossmatch 04/14/23 04/14/23 04/14/23 Range/Units 14:55 14:56 16:00 WBC 14.9 H (3.8-10.6) k/uL RBC 3.80 L (4.30-5.90) m/uL Hgb 11.8 L (13.0-17.5) gm/dL Hct 34.2 L (39.0-53.0) % Neutrophils # 12.8 H (1.3-7.7) k/uL Lymphocytes # (1.0-4.8) k/uL PT (10.0-12.5) sec INR (<1.2) ABG pH (7.35-7.45) ABG pO2 (83-108) mmHg ABG HCO3 (21-25) mmol/L ABG Total CO2 (19-24) mmol/L ABG O2 Saturation (94-97) % ABG Hematocrit (34.0-46.0) % ABG Glucose (75-99) mg/dL Hemoglobin (13.0-17.5) gm/dL Sodium (137-145) mmol/L Chloride (98-107) mmol/L Carbon Dioxide (22-30) mmol/L Creatinine (0.66-1.25) mg/dL Glucose (74-99) mg/dL POC Glucose (mg/dL) 155 H 190 H (70-110) mg/dL Calcium (8.4-10.2) mg/dL Magnesium (1.6-2.3) mg/dL AST (17-59) U/L Alkaline Phosphatase (38-126) U/L Total Protein (6.3-8.2) g/dL Albumin (3.5-5.0) g/dL Arterial Blood Glucose (75-99) mg/dL Crossmatch 04/14/23 04/14/23 04/14/23 Range/Units 16:29 17:04 18:00 WBC 15.0 H (3.8-10.6) k/uL RBC 3.57 L (4.30-5.90) m/uL Hgb 11.2 L (13.0-17.5) gm/dL Hct 31.9 L (39.0-53.0) % Neutrophils # 13.9 H (1.3-7.7) k/uL Lymphocytes # 0.6 L (1.0-4.8) k/uL PT (10.0-12.5) sec INR (<1.2) ABG pH 7.31 L (7.35-7.45) ABG pO2 111 H (83-108) mmHg ABG HCO3 19 L (21-25) mmol/L ABG Total CO2 (19-24) mmol/L ABG O2 Saturation 98.4 H (94-97) % ABG Hematocrit (34.0-46.0) % ABG Glucose (75-99) mg/dL Hemoglobin (13.0-17.5) gm/dL Sodium (137-145) mmol/L Chloride (98-107) mmol/L Carbon Dioxide (22-30) mmol/L Creatinine (0.66-1.25) mg/dL Glucose (74-99) mg/dL POC Glucose (mg/dL) 194 H (70-110) mg/dL Calcium (8.4-10.2) mg/dL Magnesium (1.6-2.3) mg/dL AST (17-59) U/L Alkaline Phosphatase (38-126) U/L Total Protein (6.3-8.2) g/dL Albumin (3.5-5.0) g/dL Arterial Blood Glucose (75-99) mg/dL Crossmatch 04/14/23 04/14/23 04/14/23 Range/Units 18:00 18:52 20:01 WBC (3.8-10.6) k/uL RBC (4.30-5.90) m/uL Hgb (13.0-17.5) gm/dL Hct (39.0-53.0) % Neutrophils # (1.3-7.7) k/uL Lymphocytes # (1.0-4.8) k/uL PT (10.0-12.5) sec INR (<1.2) ABG pH (7.35-7.45) ABG pO2 (83-108) mmHg ABG HCO3 (21-25) mmol/L ABG Total CO2 (19-24) mmol/L ABG O2 Saturation (94-97) % ABG Hematocrit (34.0-46.0) % ABG Glucose (75-99) mg/dL Hemoglobin (13.0-17.5) gm/dL Sodium (137-145) mmol/L Chloride (98-107) mmol/L Carbon Dioxide (22-30) mmol/L Creatinine (0.66-1.25) mg/dL Glucose (74-99) mg/dL POC Glucose (mg/dL) 170 H 175 H 144 H (70-110) mg/dL Calcium (8.4-10.2) mg/dL Magnesium (1.6-2.3) mg/dL AST (17-59) U/L Alkaline Phosphatase (38-126) U/L Total Protein (6.3-8.2) g/dL Albumin (3.5-5.0) g/dL Arterial Blood Glucose (75-99) mg/dL Crossmatch 04/14/23 04/14/23 04/14/23 Range/Units 21:00 21:59 22:52 WBC (3.8-10.6) k/uL RBC (4.30-5.90) m/uL Hgb (13.0-17.5) gm/dL Hct (39.0-53.0) % Neutrophils # (1.3-7.7) k/uL Lymphocytes # (1.0-4.8) k/uL PT (10.0-12.5) sec INR (<1.2) ABG pH (7.35-7.45) ABG pO2 (83-108) mmHg ABG HCO3 (21-25) mmol/L ABG Total CO2 (19-24) mmol/L ABG O2 Saturation (94-97) % ABG Hematocrit (34.0-46.0) % ABG Glucose (75-99) mg/dL Hemoglobin (13.0-17.5) gm/dL Sodium (137-145) mmol/L Chloride (98-107) mmol/L Carbon Dioxide (22-30) mmol/L Creatinine (0.66-1.25) mg/dL Glucose (74-99) mg/dL POC Glucose (mg/dL) 146 H 150 H 139 H (70-110) mg/dL Calcium (8.4-10.2) mg/dL Magnesium (1.6-2.3) mg/dL AST (17-59) U/L Alkaline Phosphatase (38-126) U/L Total Protein (6.3-8.2) g/dL Albumin (3.5-5.0) g/dL Arterial Blood Glucose (75-99) mg/dL Crossmatch 04/14/23 04/15/23 04/15/23 Range/Units 23:53 01:00 02:03 WBC (3.8-10.6) k/uL RBC (4.30-5.90) m/uL Hgb (13.0-17.5) gm/dL Hct (39.0-53.0) % Neutrophils # (1.3-7.7) k/uL Lymphocytes # (1.0-4.8) k/uL PT (10.0-12.5) sec INR (<1.2) ABG pH (7.35-7.45) ABG pO2 (83-108) mmHg ABG HCO3 (21-25) mmol/L ABG Total CO2 (19-24) mmol/L ABG O2 Saturation (94-97) % ABG Hematocrit (34.0-46.0) % ABG Glucose (75-99) mg/dL Hemoglobin (13.0-17.5) gm/dL Sodium (137-145) mmol/L Chloride (98-107) mmol/L Carbon Dioxide (22-30) mmol/L Creatinine (0.66-1.25) mg/dL Glucose (74-99) mg/dL POC Glucose (mg/dL) 131 H 121 H 115 H (70-110) mg/dL Calcium (8.4-10.2) mg/dL Magnesium (1.6-2.3) mg/dL AST (17-59) U/L Alkaline Phosphatase (38-126) U/L Total Protein (6.3-8.2) g/dL Albumin (3.5-5.0) g/dL Arterial Blood Glucose (75-99) mg/dL Crossmatch 04/15/23 04/15/23 04/15/23 Range/Units 02:59 03:56 03:57 WBC (3.8-10.6) k/uL RBC 3.92 L (4.30-5.90) m/uL Hgb 11.8 L (13.0-17.5) gm/dL Hct 34.4 L (39.0-53.0) % Neutrophils # 9.3 H (1.3-7.7) k/uL Lymphocytes # 0.6 L (1.0-4.8) k/uL PT (10.0-12.5) sec INR (<1.2) ABG pH (7.35-7.45) ABG pO2 (83-108) mmHg ABG HCO3 (21-25) mmol/L ABG Total CO2 (19-24) mmol/L ABG O2 Saturation (94-97) % ABG Hematocrit (34.0-46.0) % ABG Glucose (75-99) mg/dL Hemoglobin (13.0-17.5) gm/dL Sodium (137-145) mmol/L Chloride (98-107) mmol/L Carbon Dioxide (22-30) mmol/L Creatinine (0.66-1.25) mg/dL Glucose (74-99) mg/dL POC Glucose (mg/dL) 117 H 116 H (70-110) mg/dL Calcium (8.4-10.2) mg/dL Magnesium (1.6-2.3) mg/dL AST (17-59) U/L Alkaline Phosphatase (38-126) U/L Total Protein (6.3-8.2) g/dL Albumin (3.5-5.0) g/dL Arterial Blood Glucose (75-99) mg/dL Crossmatch 04/15/23 04/15/23 04/15/23 Range/Units 03:57 05:07 06:14 WBC (3.8-10.6) k/uL RBC (4.30-5.90) m/uL Hgb (13.0-17.5) gm/dL Hct (39.0-53.0) % Neutrophils # (1.3-7.7) k/uL Lymphocytes # (1.0-4.8) k/uL PT (10.0-12.5) sec INR (<1.2) ABG pH (7.35-7.45) ABG pO2 (83-108) mmHg ABG HCO3 (21-25) mmol/L ABG Total CO2 (19-24) mmol/L ABG O2 Saturation (94-97) % ABG Hematocrit (34.0-46.0) % ABG Glucose (75-99) mg/dL Hemoglobin (13.0-17.5) gm/dL Sodium 133 L (137-145) mmol/L Chloride (98-107) mmol/L Carbon Dioxide 20 L (22-30) mmol/L Creatinine 0.53 L (0.66-1.25) mg/dL Glucose 110 H (74-99) mg/dL POC Glucose (mg/dL) 120 H 134 H (70-110) mg/dL Calcium (8.4-10.2) mg/dL Magnesium (1.6-2.3) mg/dL AST (17-59) U/L Alkaline Phosphatase (38-126) U/L Total Protein 5.7 L (6.3-8.2) g/dL Albumin (3.5-5.0) g/dL Arterial Blood Glucose (75-99) mg/dL Crossmatch 04/15/23 Range/Units 07:02 WBC (3.8-10.6) k/uL RBC (4.30-5.90) m/uL Hgb (13.0-17.5) gm/dL Hct (39.0-53.0) % Neutrophils # (1.3-7.7) k/uL Lymphocytes # (1.0-4.8) k/uL PT (10.0-12.5) sec INR (<1.2) ABG pH (7.35-7.45) ABG pO2 (83-108) mmHg ABG HCO3 (21-25) mmol/L ABG Total CO2 (19-24) mmol/L ABG O2 Saturation (94-97) % ABG Hematocrit (34.0-46.0) % ABG Glucose (75-99) mg/dL Hemoglobin (13.0-17.5) gm/dL Sodium (137-145) mmol/L Chloride (98-107) mmol/L Carbon Dioxide (22-30) mmol/L Creatinine (0.66-1.25) mg/dL Glucose (74-99) mg/dL POC Glucose (mg/dL) 129 H (70-110) mg/dL Calcium (8.4-10.2) mg/dL Magnesium (1.6-2.3) mg/dL AST (17-59) U/L Alkaline Phosphatase (38-126) U/L Total Protein (6.3-8.2) g/dL Albumin (3.5-5.0) g/dL Arterial Blood Glucose (75-99) mg/dL Crossmatch
[2023-04-15] MEDS: KETOROLAC 15 MG/ML 1 ML VIAL IVP SCH ×3 (08:00→18:14)
[2023-04-15] MEDS: CLOPIDOGREL 75 MG TAB PO SCH (08:00)
[2023-04-15] MEDS: METOPROLOL TARTRATE 25 MG TAB PO SCH ×2 (08:00→21:12)
[2023-04-15] MEDS: HEPARIN SODIUM,PORCINE 5,000 UNIT/ML 1 ML VIAL SQ SCH ×2 (08:01→16:23)
[2023-04-15] MEDS: ATORVASTATIN 40 MG TAB PO SCH (08:01)
[2023-04-15] MEDS: ASPIRIN 325 MG TAB PO SCH (08:01)
[2023-04-15] MEDS: amLODIPine 5 MG TAB PO SCH (08:01)
[2023-04-15] MEDS: IPRATROPIUM-ALBUTEROL 3 ML NEB INHALATION SCH ×4 (08:05→19:50)
[2023-04-15 08:25] LABS: Glucose,Whole Blood 132 mg/dL (70-110)
--- NOTE | 2023-04-15 08:27 | XR ---
EXAMINATION TYPE: XR chest 1V portable DATE OF EXAM: 04/15/2023 HISTORY: Post Operative Cardiac Surgery COMPARISON: 04/14/2023 TECHNIQUE: Single view of the chest is submitted. FINDINGS: Lerona-Fabian catheter, left-sided chest tube, right-sided chest tube and mediastinal drains appear uncha nged in position. Tiny left apical pneumothorax is difficult to visualize at this time. Diminishing subcutaneous air al jayda the left chest wall. Postoperative changes of CABG. Left atrial clip in place. Increasing left basilar atelectasis with mild atelectasis right hilar region. Cardiomediastinal silhouette is stable. IMPRESSION: 1. Postoperative changes of CABG as noted. No sizable pneumothorax seen on the left.
[2023-04-15] MEDS ORDERED: PANTOPRAZOLE 40 MG/10 ML VIAL IVP SCH (09:00)
[2023-04-15] MEDS ORDERED: METOPROLOL TARTRATE 12.5 MG TAB PO SCH (09:00)
[2023-04-15] MEDS ORDERED: MAGNESIUM HYDROXIDE 2,400 MG/30 ML CUP PO PRN (09:00)
[2023-04-15] MEDS ORDERED: bisacodyL 10 MG SUPP RECTAL PRN (09:00)
[2023-04-15] MEDS: ALBUMIN HUMAN 5% 250 ML in EMPTY BAG 1 BAG IVPB PRN ×2 (10:29→14:59)
[2023-04-15 10:35] LABS: Glucose,Whole Blood 110 mg/dL (70-110)
[2023-04-15 11:18] VITALS: BMI 27.6
--- NOTE | 2023-04-15 11:40 | P.PN ---
Subjective Progress Note Date: 04/15/23 Principal diagnosis: Multivessel coronary artery disease. Past medical history significant for hypertension, hyperlipidemia, diabetes mellitus type 2, family history of early onset coronary artery disease with his brother having a CABG 4 in his late 40s or early 50s, GERD, diverticulosis with previous bowel perforation requiring colostomy and subsequent reversal, and the patient is a lifetime nonsmoker. POD #1 Off pump CABG 4 with PUCKETT to LAD, sequential left radial artery graft to first and second obtuse marginal branches of the circumflex coronary artery, saphenous vein graft to the right coronary artery with endovascular vein harvest from the left greater saphenous vein, endovascular harvest of the left radial artery, occlusion of the left atrial appendage with 35 mm AtriCure clamp, intra- operative graft velocity assessment. Postoperative acute blood loss anemia, expected given hemodilution. The patient was seen and examined in follow-up today 04/15/2023 at his bedside on the intensive care unit. The patient was successfully extubated at 4:35 PM last evening, is currently on 2 L nasal cannula with oxygen saturations 94% and he is achieving 1000 mL on his incentive spirometry. He is sitting up to the bedside chair, is awake, alert, oriented 3 and is in no acute distress. He denies any complaints of shortness of breath at this time although is comp laining of some surgical type pain to his chest tube insertion sites rating his pain 5 out of 10 on the pain scale. He remains hemodynamically stable and is currently on no inotropic or pressors support. Cardizem drip remains infusing at 5 mg per hour for radial artery spasm prophylaxis. Right IJ Cordis and [place]- Fabian catheter remain in place with current hemodynamics showing a cardiac output of 6.7, cardiac index 3.5, PA pressures 25 over 9, CVP 2 mmHg and SVR 990. Mediastinal and left for slight right pleural chest tubes remain in place to low continuous wall suction -20 cm H2O. Mediastinal chest tube with intermittent air leak. No airleak on the pleural chest tubes. Mediastinal chest tube drained 90 mL output in the last 8 hours and 410 mL output since surgery. Left/right pleural chest tube draining thin serosanguineous drainage with 180 mL output in the last 8 hours at 350 mL output since surgery. Left arm KRYSTAL draining any thin serosanguineous drainage with 40 milliliters output in the last 12 hours. Laboratory and chest x-ray results reviewed. Objective - Vital Signs Vital signs: Vital Signs Temp 98.6 F 04/15/23 08:00 Pulse 85 04/15/23 10:54 Resp 27 H 04/15/23 10:00 BP 144/81 04/14/23 07:15 Pulse Ox 94 L 04/15/23 10:00 FiO2 50 04/14/23 16:01 Intake & Output 04/14/23 04/15/23 04/15/23 18:59 06:59 18:59 Intake Total 6420.395 3452.860 221.058 Output Total 1885 2055 160 Balance -465.961 -844.140 61.058 Weight 79.9 kg 79.9 kg Intake: IV 1049 838 207 ACETAMINOPHEN IV (For NPO 200 ) 1,000 mg In Empty Bag 1 bag @ 400 mls/hr IVPB Q6HR [facility] Rx#:[id number] CO/CI 100 80 LR 250 50 Lactated Ringers 1,000 ml 550 180 @ 20 mls/hr IV .Q24H [facility] Rx#:[id number] Magnesium Sulfate-D5w Pmx 200 1 gm In Dextrose/Water 1 100ml.bag @ 100 mls/hr IVPB Q1H [facility] Rx#: [id number] Pressure Bags 45 108 27 ceFAZolin 2 gm In Sodium 100 50 Chloride 0.9% 50 ml @ 100 mls/hr IVPB Q8H [facility] Rx#: [id number] Intake, IV Titration 120.039 72.860 14.058 Amount Clevidipine Butyrate 25 62.966 44.133 3.2 mg In Empty Bag 1 bag @ 1 MG/HR 2 mls/hr IV .Q24H [facility] Rx#:[id number] Dexmedetomidine/0.9% NaCl 9.795 (Pmx) 400 mcg In Empty Bag 1 bag @ 0.2 MCG/KG/HR 3.905 mls/hr IV .Q24H [facility] Rx#:[id number] Insulin Regular 100 unit 10.134 28.727 10.858 In Sodium Chloride 0.9% 100 ml @ Per Protocol IV .Q0M [facility] Rx#:[id number] Nitroglycerin-D5w Pmx 50 2 mg In Dextrose/Water 1 250ml.bag @ 5 MCG/MIN 1.5 mls/hr IV .Q24H [facility] Rx#: [id number] propofoL 1,000 mg In 35.144 Empty Bag 1 bag @ Titrate IV .Q0M [facility] Rx#: [id number] Oral 300 Albumin 250 Albumin Human 5% 250 ml 250 In Empty Bag 1 bag @ 250 mls/hr IVPB Q1HR [facility] Rx#: [id number] Output: Chest Tube Drainage 240 390 120 1 MS 100 130 60 2 L/R Pl 140 260 60 Drainage 20 40 L. arm KRYSTAL 20 40 Urine 975 1625 40 Estimated Blood Loss 650 Other: Voiding Method Indwelling Catheter Indwelling Catheter Indwelling Catheter ABP, PAP, CO, CI - Last Documented Arterial Blood Pressure 137/57 Pulmonary Artery Pressure 23/10 Cardiac Output 6.7 Cardiac Index 3.5 - Exam CONSTITUTIONAL: Sitting up to the bedside chair in the intensive care unit, appears comfortable, cooperative, no apparent acute distress. HEENT: Neck is supple, no JVD, no lymphadenopathy. Right IJ Cordis and [place]- Fabian catheter in place and functioning. RESPIRATORY: Lungs sounds essentially clear throughout, diminished to his bilateral bases. Respirations are symmetrical and nonlabored. Currently on 2 L nasal cannula with oxygen saturations 94%. Able to achieve 1000 mL on their incentive spirometry. Strong cough. CARDIOVASCULAR: Regular rhythm and rate. S1 and S2 present, negative for S3, gallop or murmur. Sternum is stable. Palpable peripheral pulses bilaterally, no edema to his bilateral lower extremities. No calf pain or tenderness noted. Heart hugger in place with patient demonstrating appropriate use. Knee-high ROBERTH hose and sequential compression devices in place to his bilateral lower extremities. GASTROINTESTINAL: Abdomen soft, nontender, nondistended. Hypoactive bowel sounds present 4 quadrants. Tolerating diet. Passing flatus. No guarding or rigidity. GENITOURINARY: Martinez present draining clear, yellow urine. Urine output 450 mL in the last 8 hours. INTEGUMENTARY: Skin is warm and dry with no evidence of clubbing or cyanosis. Midline sternal incision clean dry and well approximated, covered with dry intact dressing. Left lower extremity EVH sites well approximated without redness or drainage. Left arm radial artery harvest sites clean, dry and appr oximated. No drainage or redness is present. NEUROLOGIC: Cranial nerves II through XII intact. No focal deficits. MUSKULOSKELETAL: Able to move all extremities, strength equal bilaterally, generalized weakness. PSYCHIATRIC: Alert and oriented to person place and time, appropriate affect, intact judgment and insight. INVASIVE LINES AND TUBES: Mediastinal/left/right pleural chest tubes present and connected to low continuous wall suction, no air leaks present. Mediastinal tube with 90 mL of thin serosanguineous drainage overnight, 410 mL output in the last 24 hours. Left/right pleural chest tubes with 180 mL of thin serosanguineous drainage overnight, 350 mL output in the last 24 hours. Right internal jugular Houston/Cordis, right radial arterial line present. Last CO 6.7, CI 3.5, PA 25/9 and CVP 2 mmHg. Left arm KRYSTAL drain in place with scant thin serosanguineous drainage, 40 mL output in the last 8 hours. - Allied health notes Allied health notes reviewed: nursing - Labs CBC & Chem 7: 04/15/23 03:57 04/15/23 03:57 Labs: Abnormal Lab Results - Last 24 Hours (Table) 04/09/23 04/14/23 04/14/23 Range/Units 08:29 07:30 07:30 WBC (3.8-10.6) k/uL RBC (4.30-5.90) m/uL Hgb (13.0-17.5) gm/dL Hct (39.0-53.0) % Neutrophils # (1.3-7.7) k/uL Lymphocytes # (1.0-4.8) k/uL PT (10.0-12.5) sec INR (<1.2) ABG pH (7.35-7.45) ABG pO2 170 H 274 H (83-108) mmHg ABG HCO3 (21-25) mmol/L ABG Total CO2 25 H 25 H (19-24) mmol/L ABG O2 Saturation 99.7 H 99.9 H (94-97) % ABG Hematocrit (34.0-46.0) % ABG Glucose 125 H 122 H (75-99) mg/dL Hemoglobin 12.4 L (13.0-17.5) gm/dL Sodium (137-145) mmol/L Chloride (98-107) mmol/L Carbon Dioxide (22-30) mmol/L Creatinine (0.66-1.25) mg/dL Glucose (74-99) mg/dL POC Glucose (mg/dL) (70-110) mg/dL Calcium (8.4-10.2) mg/dL Magnesium (1.6-2.3) mg/dL AST (17-59) U/L Alkaline Phosphatase (38-126) U/L Total Protein (6.3-8.2) g/dL Albumin (3.5-5.0) g/dL Arterial Blood Glucose 125 H 122 H (75-99) mg/dL Crossmatch See Detail 04/14/23 04/14/23 04/14/23 Range/Units 07:30 07:30 07:30 WBC (3.8-10.6) k/uL RBC (4.30-5.90) m/uL Hgb (13.0-17.5) gm/dL Hct (39.0-53.0) % Neutrophils # (1.3-7.7) k/uL Lymphocytes # (1.0-4.8) k/uL PT (10.0-12.5) sec INR (<1.2) ABG pH (7.35-7.45) ABG pO2 215 H 184 H 116 H (83-108) mmHg ABG HCO3 (21-25) mmol/L ABG Total CO2 (19-24) mmol/L ABG O2 Saturation 99.9 H 99.7 H 99.1 H (94-97) % ABG Hematocrit 33 L 32 L (34.0-46.0) % ABG Glucose 113 H 106 H 120 H (75-99) mg/dL Hemoglobin 11.3 L 10.6 L 10.5 L (13.0-17.5) gm/dL Sodium (137-145) mmol/L Chloride (98-107) mmol/L Carbon Dioxide (22-30) mmol/L Creatinine (0.66-1.25) mg/dL Glucose (74-99) mg/dL POC Glucose (mg/dL) (70-110) mg/dL Calcium (8.4-10.2) mg/dL Magnesium (1.6-2.3) mg/dL AST (17-59) U/L Alkaline Phosphatase (38-126) U/L Total Protein (6.3-8.2) g/dL Albumin (3.5-5.0) g/dL Arterial Blood Glucose 113 H 106 H 120 H (75-99) mg/dL Crossmatch 04/14/23 04/14/23 04/14/23 Range/Units 13:17 13:17 13:17 WBC 11.1 H (3.8-10.6) k/uL RBC 3.25 L (4.30-5.90) m/uL Hgb 10.0 L D (13.0-17.5) gm/dL Hct 29.0 L (39.0-53.0) % Neutrophils # 9.6 H (1.3-7.7) k/uL Lymphocytes # (1.0-4.8) k/uL PT 12.9 H (10.0-12.5) sec INR 1.2 H (<1.2) ABG pH (7.35-7.45) ABG pO2 (83-108) mmHg ABG HCO3 (21-25) mmol/L ABG Total CO2 (19-24) mmol/L ABG O2 Saturation (94-97) % ABG Hematocrit (34.0-46.0) % ABG Glucose (75-99) mg/dL Hemoglobin (13.0-17.5) gm/dL Sodium (137-145) mmol/L Chloride 109 H (98-107) mmol/L Carbon Dioxide 19 L (22-30) mmol/L Creatinine 0.60 L (0.66-1.25) mg/dL Glucose 107 H (74-99) mg/dL POC Glucose (mg/dL) (70-110) mg/dL Calcium 8.3 L (8.4-10.2) mg/dL Magnesium 1.5 L (1.6-2.3) mg/dL AST 16 L (17-59) U/L Alkaline Phosphatase 37 L (38-126) U/L Total Protein 4.9 L (6.3-8.2) g/dL Albumin 3.2 L (3.5-5.0) g/dL Arterial Blood Glucose (75-99) mg/dL Crossmatch 04/14/23 04/14/23 04/14/23 Range/Units 13:22 13:44 13:58 WBC (3.8-10.6) k/uL RBC (4.30-5.90) m/uL Hgb (13.0-17.5) gm/dL Hct (39.0-53.0) % Neutrophils # (1.3-7.7) k/uL Lymphocytes # (1.0-4.8) k/uL PT (10.0-12.5) sec INR (<1.2) ABG pH 7.33 L (7.35-7.45) ABG pO2 258 H (83-108) mmHg ABG HCO3 (21-25) mmol/L ABG Total CO2 (19-24) mmol/L ABG O2 Saturation 99.6 H (94-97) % ABG Hematocrit (34.0-46.0) % ABG Glucose (75-99) mg/dL Hemoglobin (13.0-17.5) gm/dL Sodium (137-145) mmol/L Chloride (98-107) mmol/L Carbon Dioxide (22-30) mmol/L Creatinine (0.66-1.25) mg/dL Glucose (74-99) mg/dL POC Glucose (mg/dL) 116 H 152 H (70-110) mg/dL Calcium (8.4-10.2) mg/dL Magnesium (1.6-2.3) mg/dL AST (17-59) U/L Alkaline Phosphatase (38-126) U/L Total Protein (6.3-8.2) g/dL Albumin (3.5-5.0) g/dL Arterial Blood Glucose (75-99) mg/dL Crossmatch 04/14/23 04/14/23 04/14/23 Range/Units 14:55 14:56 16:00 WBC 14.9 H (3.8-10.6) k/uL RBC 3.80 L (4.30-5.90) m/uL Hgb 11.8 L (13.0-17.5) gm/dL Hct 34.2 L (39.0-53.0) % Neutrophils # 12.8 H (1.3-7.7) k/uL Lymphocytes # (1.0-4.8) k/uL PT (10.0-12.5) sec INR (<1.2) ABG pH (7.35-7.45) ABG pO2 (83-108) mmHg ABG HCO3 (21-25) mmol/L ABG Total CO2 (19-24) mmol/L ABG O2 Saturation (94-97) % ABG Hematocrit (34.0-46.0) % ABG Glucose (75-99) mg/dL Hemoglobin (13.0-17.5) gm/dL Sodium (137-145) mmol/L Chloride (98-107) mmol/L Carbon Dioxide (22-30) mmol/L Creatinine (0.66-1.25) mg/dL Glucose (74-99) mg/dL POC Glucose (mg/dL) 155 H 190 H (70-110) mg/dL Calcium (8.4-10.2) mg/dL Magnesium (1.6-2.3) mg/dL AST (17-59) U/L Alkaline Phosphatase (38-126) U/L Total Protein (6.3-8.2) g/dL Albumin (3.5-5.0) g/dL Arterial Blood Glucose (75-99) mg/dL Crossmatch 04/14/23 04/14/23 04/14/23 Range/Units 16:29 17:04 18:00 WBC 15.0 H (3.8-10.6) k/uL RBC 3.57 L (4.30-5.90) m/uL Hgb 11.2 L (13.0-17.5) gm/dL Hct 31.9 L (39.0-53.0) % Neutrophils # 13.9 H (1.3-7.7) k/uL Lymphocytes # 0.6 L (1.0-4.8) k/uL PT (10.0-12.5) sec INR (<1.2) ABG pH 7.31 L (7.35-7.45) ABG pO2 111 H (83-108) mmHg ABG HCO3 19 L (21-25) mmol/L ABG Total CO2 (19-24) mmol/L ABG O2 Saturation 98.4 H (94-97) % ABG Hematocrit (34.0-46.0) % ABG Glucose (75-99) mg/dL Hemoglobin (13.0-17.5) gm/dL Sodium (137-145) mmol/L Chloride (98-107) mmol/L Carbon Dioxide (22-30) mmol/L Creatinine (0.66-1.25) mg/dL Glucose (74-99) mg/dL POC Glucose (mg/dL) 194 H (70-110) mg/dL Calcium (8.4-10.2) mg/dL Magnesium (1.6-2.3) mg/dL AST (17-59) U/L Alkaline Phosphatase (38-126) U/L Total Protein (6.3-8.2) g/dL Albumin (3.5-5.0) g/dL Arterial Blood Glucose (75-99) mg/dL Crossmatch 04/14/23 04/14/23 04/14/23 Range/Units 18:00 18:52 20:01 WBC (3.8-10.6) k/uL RBC (4.30-5.90) m/uL Hgb (13.0-17.5) gm/dL Hct (39.0-53.0) % Neutrophils # (1.3-7.7) k/uL Lymphocytes # (1.0-4.8) k/uL PT (10.0-12.5) sec INR (<1.2) ABG pH (7.35-7.45) ABG pO2 (83-108) mmHg ABG HCO3 (21-25) mmol/L ABG Total CO2 (19-24) mmol/L ABG O2 Saturation (94-97) % ABG Hematocrit (34.0-46.0) % ABG Glucose (75-99) mg/dL Hemoglobin (13.0-17.5) gm/dL Sodium (137-145) mmol/L Chloride (98-107) mmol/L Carbon Dioxide (22-30) mmol/L Creatinine (0.66-1.25) mg/dL Glucose (74-99) mg/dL POC Glucose (mg/dL) 170 H 175 H 144 H (70-110) mg/dL Calcium (8.4-10.2) mg/dL Magnesium (1.6-2.3) mg/dL AST (17-59) U/L Alkaline Phosphatase (38-126) U/L Total Protein (6.3-8.2) g/dL Albumin (3.5-5.0) g/dL Arterial Blood Glucose (75-99) mg/dL Crossmatch 04/14/23 04/14/2323 Range/Units 21:00 21:59 22:52 WBC (3.8-10.6) k/uL RBC (4.30-5.90) m/uL Hgb (13.0-17.5) gm/dL Hct (39.0-53.0) % Neutrophils # (1.3-7.7) k/uL Lymphocytes # (1.0-4.8) k/uL PT (10.0-12.5) sec INR (<1.2) ABG pH (7.35-7.45) ABG pO2 (83-108) mmHg ABG HCO3 (21-25) mmol/L ABG Total CO2 (19-24) mmol/L ABG O2 Saturation (94-97) % ABG Hematocrit (34.0-46.0) % ABG Glucose (75-99) mg/dL Hemoglobin (13.0-17.5) gm/dL Sodium (137-145) mmol/L Chloride (98-107) mmol/L Carbon Dioxide (22-30) mmol/L Creatinine (0.66-1.25) mg/dL Glucose (74-99) mg/dL POC Glucose (mg/dL) 146 H 150 H 139 H (70-110) mg/dL Calcium (8.4-10.2) mg/dL Magnesium (1.6-2.3) mg/dL AST (17-59) U/L Alkaline Phosphatase (38-126) U/L Total Protein (6.3-8.2) g/dL Albumin (3.5-5.0) g/dL Arterial Blood Glucose (75-99) mg/dL Crossmatch 04/14/23 04/15/23 04/15/23 Range/Units 23:53 01:00 02:03 WBC (3.8-10.6) k/uL RBC (4.30-5.90) m/uL Hgb (13.0-17.5) gm/dL Hct (39.0-53.0) % Neutrophils # (1.3-7.7) k/uL Lymphocytes # (1.0-4.8) k/uL PT (10.0-12.5) sec INR (<1.2) ABG pH (7.35-7.45) ABG pO2 (83-108) mmHg ABG HCO3 (21-25) mmol/L ABG Total CO2 (19-24) mmol/L ABG O2 Saturation (94-97) % ABG Hematocrit (34.0-46.0) % ABG Glucose (75-99) mg/dL Hemoglobin (13.0-17.5) gm/dL Sodium (137-145) mmol/L Chloride (98-107) mmol/L Carbon Dioxide (22-30) mmol/L Creatinine (0.66-1.25) mg/dL Glucose (74-99) mg/dL POC Glucose (mg/dL) 131 H 121 H 115 H (70-110) mg/dL Calcium (8.4-10.2) mg/dL Magnesium (1.6-2.3) mg/dL AST (17-59) U/L Alkaline Phosphatase (38-126) U/L Total Protein (6.3-8.2) g/dL Albumin (3.5-5.0) g/dL Arterial Blood Glucose (75-99) mg/dL Crossmatch 04/15/23 04/15/23 04/15/23 Range/Units 02:59 03:56 03:57 WBC (3.8-10.6) k/uL RBC 3.92 L (4.30-5.90) m/uL Hgb 11.8 L (13.0-17.5) gm/dL Hct 34.4 L (39.0-53.0) % Neutrophils # 9.3 H (1.3-7.7) k/uL Lymphocytes # 0.6 L (1.0-4.8) k/uL PT (10.0-12.5) sec INR (<1.2) ABG pH (7.35-7.45) ABG pO2 (83-108) mmHg ABG HCO3 (21-25) mmol/L ABG Total CO2 (19-24) mmol/L ABG O2 Saturation (94-97) % ABG Hematocrit (34.0-46.0) % ABG Glucose (75-99) mg/dL Hemoglobin (13.0-17.5) gm/dL Sodium (137-145) mmol/L Chloride (98-107) mmol/L Carbon Dioxide (22-30) mmol/L Creatinine (0.66-1.25) mg/dL Glucose (74-99) mg/dL POC Glucose (mg/dL) 117 H 116 H (70-110) mg/dL Calcium (8.4-10.2) mg/dL Magnesium (1.6-2.3) mg/dL AST (17-59) U/L Alkaline Phosphatase (38-126) U/L Total Protein (6.3-8.2) g/dL Albumin (3.5-5.0) g/dL Arterial Blood Glucose (75-99) mg/dL Crossmatch 04/15/23 04/15/23 04/15/23 Range/Units 03:57 05:07 06:14 WBC (3.8-10.6) k/uL RBC (4.30-5.90) m/uL Hgb (13.0-17.5) gm/dL Hct (39.0-53.0) % Neutrophils # (1.3-7.7) k/uL Lymphocytes # (1.0-4.8) k/uL PT (10.0-12.5) sec INR (<1.2) ABG pH (7.35-7.45) ABG pO2 (83-108) mmHg ABG HCO3 (21-25) mmol/L ABG Total CO2 (19-24) mmol/L ABG O2 Saturation (94-97) % ABG Hematocrit (34.0-46.0) % ABG Glucose (75-99) mg/dL Hemoglobin (13.0-17.5) gm/dL Sodium 133 L (137-145) mmol/L Chloride (98-107) mmol/L Carbon Dioxide 20 L (22-30) mmol/L Creatinine 0.53 L (0.66-1.25) mg/dL Glucose 110 H (74-99) mg/dL POC Glucose (mg/dL) 120 H 134 H (70-110) mg/dL Calcium (8.4-10.2) mg/dL Magnesium (1.6-2.3) mg/dL AST (17-59) U/L Alkaline Phosphatase (38-126) U/L Total Protein 5.7 L (6.3-8.2) g/dL Albumin (3.5-5.0) g/dL Arterial Blood Glucose (75-99) mg/dL Crossmatch 04/15/23 04/15/23 Range/Units 07:02 08:22 WBC (3.8-10.6) k/uL RBC (4.30-5.90) m/uL Hgb (13.0-17.5) gm/dL Hct (39.0-53.0) % Neutrophils # (1.3-7.7) k/uL Lymphocytes # (1.0-4.8) k/uL PT (10.0-12.5) sec INR (<1.2) ABG pH (7.35-7.45) ABG pO2 (83-108) mmHg ABG HCO3 (21-25) mmol/L ABG Total CO2 (19-24) mmol/L ABG O2 Saturation (94-97) % ABG Hematocrit (34.0-46.0) % ABG Glucose (75-99) mg/dL Hemoglobin (13.0-17.5) gm/dL Sodium (137-145) mmol/L Chloride (98-107) mmol/L Carbon Dioxide (22-30) mmol/L Creatinine (0.66-1.25) mg/dL Glucose (74-99) mg/dL POC Glucose (mg/dL) 129 H 132 H (70-110) mg/dL Calcium (8.4-10.2) mg/dL Magnesium (1.6-2.3) mg/dL AST (17-59) U/L Alkaline Phosphatase (38-126) U/L Total Protein (6.3-8.2) g/dL Albumin (3.5-5.0) g/dL Arterial Blood Glucose (75-99) mg/dL Crossmatch - Imaging and Cardiology Chest x-ray: report reviewed, image reviewed Assessment and Plan Assessment: Multivessel coronary artery disease, status post off-pump CABG 4 Hypertension Hyperlipidemia GERD Lifetime nonsmoker History of diverticulitis, status post bowel perforation, with colostomy and subsequent reversal History of skin cancer, basal and squamous cell Family history of early onset coronary artery disease with his brother having CABG 4 in his late 40s to early 50s Postoperative acute blood loss anemia, expected given hemodilution Plan: Continue to maximize medical therapy with aspirin, statin, and Plavix. Increase metoprolol tartrate to 25 mg by mouth twice a day with hold parameters. Discontinue Cardizem drip start Norvasc 5 mg by mouth daily for radial artery spasm prophylaxis. Discontinue nitroglycerin drip. Encourage incentive spirometry 10 times every hour while awake. Bronchodilators per pulmonology. We will monitor daily labs and chest x-rays. Electrolyte replacement per protocol. Increase activity, ambulate as tolerated. PT/OT/cardiac rehab consulted. GI/DVT prophylaxis. Pain control with current medication regimen. Start Toradol 15 mg IV every 6 hours for additional pain control. Insulin management per internal medicine. Patient should remain on insulin drip for 48 hours for tight blood sugar control, then SQ insulin per protocol. Preop erative hemoglobin A1c was 8.3%. Remove right IJ Houston-Fabian catheter and keep right IJ Cordis in place for another 24 hours connected to continuous CVP monitoring. Remove mediastinal chest tube and left/right pleural chest tubes in place to low continuous wall suction -20 cm H2O. Continue martinez for another 24 hours for strict accurate intake and output. More recommendations to follow based on patient's clinical course. Time with Patient: Greater than 30
[2023-04-15 12:10] LABS: Glucose,Whole Blood 127 mg/dL (70-110)
[2023-04-15] MEDS: LACTATED RINGERS 1,000 ML IV SCH (12:10)
--- NOTE | 2023-04-15 12:23 | P.PN ---
Subjective Progress Note Date: 04/15/23 This is a pleasant 73-year-old male patient with a known history of IVs mellitus, type II, hyperlipidemia, hypertension, family history of early onset coronary artery disease. He had been having issues with heartburn and did undergo stress testing and subsequent cardiac catheterization. He was recommend ed coronary revascularization. He was brought in today electively. He did undergo off-pump coronary artery bypass grafting with a PUCKETT to the LAD, sequential left radial artery graft to the first and second obtuse marginal branches of the circumflex artery, saphenous vein graft to the RCA and left atrial appendage clipping. He is seen today in consultation in the intensive care unit. He was successfully extubated at 3-1/2 hours. He is currently awake and alert. He is in the 90s on 5 L/m per nasal cannula. He is on a insulin drip at 3.5 units per hour. Nitroglycerin drip at 5 mcg/m. Cardizem drip at 5 mg per hour. Lactated Ringer's at 50 MLS per hour. He has right left and mediastinal chest tubes in place. Pacer wires in place. Right IJ Le Grand-Fabian catheter in place. PA pressure 23/10. CVP of 4. Cardiac output 5.7. Cardiac index 3.0. He did receive albumin. Asked x-ray reveals limited inspiration with left lower lobe consolidation and small effusion. Tiny left apical p neumothorax measuring less than 5%. White count 14.9. Hemoglobin 11.8. Platelets 260. Sodium 138. Potassium 3.8. Bicarb 19. BUN 9013. Creatinine 0.69. Glucose 194. Ionized calcium 4.8. Magnesium 1.5. AST 16. ALT 11. Albumin 3.2. Arterial blood gases prior to extubation revealed a pO2 of 111, pCO2 38 and a pH of 7.31 on 50% FiO2. The patient is seen today 04/15/2023 in follow-up in the intensive care unit. He is currently sitting up in a chair. Awake and alert in no acute distress. Maintaining O2 saturations in the 90s on 2 L/m per nasal cannula. He's in sinus rhythm. He is on an insulin drip at 2.5 units per hour. Lactated Ringer's at 40 ML's per hour. Still has mediastinal, right and left pleural chest tubes in place. His x-ray reveals postoperative changes. No sizable pneumothorax. White count 10.4. Hemoglobin 10.8. Platelets 264. Sodium 133. Potassium 3.7. Bicarb 20. BUN 10. Creatinine 0.53. Glucose 110. He is continued on bronchodilators. Continues to work well with the incentive spirometer. Objective - Vital Signs Vital signs: Vital Signs Temp 98 F 04/15/23 12:00 Pulse 77 04/15/23 12:00 Resp 25 H 04/15/23 12:00 BP 144/81 04/14/23 07:15 Pulse Ox 93 L 04/15/23 12:00 FiO2 50 04/14/23 16:01 Intake & Output 04/14/23 04/15/23 04/15/23 18:59 06:59 18:59 Intake Total 0523.922 4784.860 313.058 Output Total 1885 2055 265 Balance -465.961 -844.140 48.058 Weight 79.9 kg 79.9 kg Intake: IV 1049 838 299 ACETAMINOPHEN IV (For NPO 200 ) 1,000 mg In Empty Bag 1 bag @ 400 mls/hr IVPB Q6HR [facility] Rx#:[id number] CO/CI 100 80 LR 250 50 Lactated Ringers 1,000 ml 550 260 @ 20 mls/hr IV .Q24H [facility] Rx#:[id number] Magnesium Sulfate-D5w Pmx 200 1 gm In Dextrose/Water 1 100ml.bag @ 100 mls/hr IVPB Q1H [facility] Rx#: [id number] Pressure Bags 45 108 39 ceFAZolin 2 gm In Sodium 100 50 Chloride 0.9% 50 ml @ 100 mls/hr IVPB Q8H [facility] Rx#: [id number] Intake, IV Titration 120.039 72.860 14.058 Amount Clevidipine Butyrate 25 62.966 44.133 3.2 mg In Empty Bag 1 bag @ 1 MG/HR 2 mls/hr IV .Q24H [facility] Rx#:[id number] Dexmedetomidine/0.9% NaCl 9.795 (Pmx) 400 mcg In Empty Bag 1 bag @ 0.2 MCG/KG/HR 3.905 mls/hr IV .Q24H [facility] Rx#:[id number] Insulin Regular 100 unit 10.134 28.727 10.858 In Sodium Chloride 0.9% 100 ml @ Per Protocol IV .Q0M [facility] Rx#:[id number] Nitroglycerin-D5w Pmx 50 2 mg In Dextrose/Water 1 250ml.bag @ 5 MCG/MIN 1.5 mls/hr IV .Q24H [facility] Rx#: [id number] propofoL 1,000 mg In 35.144 Empty Bag 1 bag @ Titrate IV .Q0M [facility] Rx#: [id number] Oral 300 Albumin 250 Albumin Human 5% 250 ml 250 In Empty Bag 1 bag @ 250 mls/hr IVPB Q1HR PRN Rx#: [id number] Output: Chest Tube Drainage 240 390 155 1 MS 100 130 60 2 L/R Pl 140 260 60 Pleural Catheter Left 15 Pleural Catheter Right 20 Drainage 20 40 L. arm KRYSTAL 20 40 Urine 975 1625 110 Estimated Blood Loss 650 Other: Voiding Method Indwelling Catheter Indwelling Catheter Indwelling Catheter ABP, PAP, CO, CI - Last Documented Arterial Blood Pressure 118/62 Pulmonary Artery Pressure 23/10 Cardiac Output 6.7 Cardiac Index 3.5 - Exam GENERAL EXAM: Alert, very pleasant 73-year-old male patient, on 2 L high flow nasal cannula, comfortable in no apparent distress. HEAD: Normocephalic. EYES: Normal reaction of pupils, equal size. NOSE: Clear with pink turbinates. THROAT: No erythema or exudates. NECK: Right IJ Le Grand-Fabian catheter in place No masses, no JVD. CHEST: Sternal dressing dry and intact. Heart hugger in place. Right, left and mediastinal chest tubes in place. Pacer wires in place. LUNGS: Equal air entry with crackles in the left lung base. CVS: S1 and S2 normal with no audible murmur, regular rhythm. ABDOMEN: No hepatosplenomegaly, hypoactive bowel sounds, no guarding or rigidity. SPINE: No scoliosis or deformity SKIN: No rashes CENTRAL NERVOUS SYSTEM: No focal deficits, tone is normal in all 4 extremities. EXTREMITIES: John wrap so bilateral lower extremities. KRYSTAL drain in the left upper extremity. Arterial line in place. Peripheral pulses are intact. - Labs CBC & Chem 7: 04/15/23 03:57 04/15/23 03:57 Labs: Abnormal Lab Results - Last 24 Hours (Table) 04/09/23 04/14/23 04/14/23 Range/Units 08:29 07:30 07:30 WBC (3.8-10.6) k/uL RBC (4.30-5.90) m/uL Hgb (13.0-17.5) gm/dL Hct (39.0-53.0) % Neutrophils # (1.3-7.7) k/uL Lymphocytes # (1.0-4.8) k/uL PT (10.0-12.5) sec INR (<1.2) ABG pH (7.35-7.45) ABG pO2 170 H 274 H (83-108) mmHg ABG HCO3 (21-25) mmol/L ABG Total CO2 25 H 25 H (19-24) mmol/L ABG O2 Saturation 99.7 H 99.9 H (94-97) % ABG Hematocrit (34.0-46.0) % ABG Glucose 125 H 122 H (75-99) mg/dL Hemoglobin 12.4 L (13.0-17.5) gm/dL Sodium (137-145) mmol/L Chloride (98-107) mmol/L Carbon Dioxide (22-30) mmol/L Creatinine (0.66-1.25) mg/dL Glucose (74-99) mg/dL POC Glucose (mg/dL) (70-110) mg/dL Calcium (8.4-10.2) mg/dL Magnesium (1.6-2.3) mg/dL AST (17-59) U/L Alkaline Phosphatase (38-126) U/L Total Protein (6.3-8.2) g/dL Albumin (3.5-5.0) g/dL Arterial Blood Glucose 125 H 122 H (75-99) mg/dL Crossmatch See Detail 04/14/23 04/14/23 04/14/23 Range/Units 07:30 07:30 07:30 WBC (3.8-10.6) k/uL RBC (4.30-5.90) m/uL Hgb (13.0-17.5) gm/dL Hct (39.0-53.0) % Neutrophils # (1.3-7.7) k/uL Lymphocytes # (1.0-4.8) k/uL PT (10.0-12.5) sec INR (<1.2) ABG pH (7.35-7.45) ABG pO2 215 H 184 H 116 H (83-108) mmHg ABG HCO3 (21-25) mmol/L ABG Total CO2 (19-24) mmol/L ABG O2 Saturation 99.9 H 99.7 H 99.1 H (94-97) % ABG Hematocrit 33 L 32 L (34.0-46.0) % ABG Glucose 113 H 106 H 120 H (75-99) mg/dL Hemoglobin 11.3 L 10.6 L 10.5 L (13.0-17.5) gm/dL Sodium (137-145) mmol/L Chloride (98-107) mmol/L Carbon Dioxide (22-30) mmol/L Creatinine (0.66-1.25) mg/dL Glucose (74-99) mg/dL POC Glucose (mg/dL) (70-110) mg/dL Calcium (8.4-10.2) mg/dL Magnesium (1.6-2.3) mg/dL AST (17-59) U/L Alkaline Phosphatase (38-126) U/L Total Protein (6.3-8.2) g/dL Albumin (3.5-5.0) g/dL Arterial Blood Glucose 113 H 106 H 120 H (75-99) mg/dL Crossmatch 04/14/23 04/14/23 04/14/23 Range/Units 13:17 13:17 13:17 WBC 11.1 H (3.8-10.6) k/uL RBC 3.25 L (4.30-5.90) m/uL Hgb 10.0 L D (13.0-17.5) gm/dL Hct 29.0 L (39.0-53.0) % Neutrophils # 9.6 H (1.3-7.7) k/uL Lymphocytes # (1.0-4.8) k/uL PT 12.9 H (10.0-12.5) sec INR 1.2 H (<1.2) ABG pH (7.35-7.45) ABG pO2 (83-108) mmHg ABG HCO3 (21-25) mmol/L ABG Total CO2 (19-24) mmol/L ABG O2 Saturation (94-97) % ABG Hematocrit (34.0-46.0) % ABG Glucose (75-99) mg/dL Hemoglobin (13.0-17.5) gm/dL Sodium (137-145) mmol/L Chloride 109 H (98-107) mmol/L Carbon Dioxide 19 L (22-30) mmol/L Creatinine 0.60 L (0.66-1.25) mg/dL Glucose 107 H (74-99) mg/dL POC Glucose (mg/dL) (70-110) mg/dL Calcium 8.3 L (8.4-10.2) mg/dL Magnesium 1.5 L (1.6-2.3) mg/dL AST 16 L (17-59) U/L Alkaline Phosphatase 37 L (38-126) U/L Total Protein 4.9 L (6.3-8.2) g/dL Albumin 3.2 L (3.5-5.0) g/dL Arterial Blood Glucose (75-99) mg/dL Crossmatch 04/14/23 04/14/23 04/14/23 Range/Units 13:22 13:44 13:58 WBC (3.8-10.6) k/uL RBC (4.30-5.90) m/uL Hgb (13.0-17.5) gm/dL Hct (39.0-53.0) % Neutrophils # (1.3-7.7) k/uL Lymphocytes # (1.0-4.8) k/uL PT (10.0-12.5) sec INR (<1.2) ABG pH 7.33 L (7.35-7.45) ABG pO2 258 H (83-108) mmHg ABG HCO3 (21-25) mmol/L ABG Total CO2 (19-24) mmol/L ABG O2 Saturation 99.6 H (94-97) % ABG Hematocrit (34.0-46.0) % ABG Glucose (75-99) mg/dL Hemoglobin (13.0-17.5) gm/dL Sodium (137-145) mmol/L Chloride (98-107) mmol/L Carbon Dioxide (22-30) mmol/L Creatinine (0.66-1.25) mg/dL Glucose (74-99) mg/dL POC Glucose (mg/dL) 116 H 152 H (70-110) mg/dL Calcium (8.4-10.2) mg/dL Magnesium (1.6-2.3) mg/dL AST (17-59) U/L Alkaline Phosphatase (38-126) U/L Total Protein (6.3-8.2) g/dL Albumin (3.5-5.0) g/dL Arterial Blood Glucose (75-99) mg/dL Crossmatch 04/14/23 04/14/23 04/14/23 Range/Units 14:55 14:56 16:00 WBC 14.9 H (3.8-10.6) k/uL RBC 3.80 L (4.30-5.90) m/uL Hgb 11.8 L (13.0-17.5) gm/dL Hct 34.2 L (39.0-53.0) % Neutrophils # 12.8 H (1.3-7.7) k/uL Lymphocytes # (1.0-4.8) k/uL PT (10.0-12.5) sec INR (<1.2) ABG pH (7.35-7.45) ABG pO2 (83-108) mmHg ABG HCO3 (21-25) mmol/L ABG Total CO2 (19-24) mmol/L ABG O2 Saturation (94-97) % ABG Hematocrit (34.0-46.0) % ABG Glucose (75-99) mg/dL Hemoglobin (13.0-17.5) gm/dL Sodium (137-145) mmol/L Chloride (98-107) mmol/L Carbon Dioxide (22-30) mmol/L Creatinine (0.66-1.25) mg/dL Glucose (74-99) mg/dL POC Glucose (mg/dL) 155 H 190 H (70-110) mg/dL Calcium (8.4-10.2) mg/dL Magnesium (1.6-2.3) mg/dL AST (17-59) U/L Alkaline Phosphatase (38-126) U/L Total Protein (6.3-8.2) g/dL Albumin (3.5-5.0) g/dL Arterial Blood Glucose (75-99) mg/dL Crossmatch 04/14/23 04/14/23 04/14/23 Range/Units 16:29 17:04 18:00 WBC 15.0 H (3.8-10.6) k/uL RBC 3.57 L (4.30-5.90) m/uL Hgb 11.2 L (13.0-17.5) gm/dL Hct 31.9 L (39.0-53.0) % Neutrophils # 13.9 H (1.3-7.7) k/uL Lymphocytes # 0.6 L (1.0-4.8) k/uL PT (10.0-12.5) sec INR (<1.2) ABG pH 7.31 L (7.35-7.45) ABG pO2 111 H (83-108) mmHg ABG HCO3 19 L (21-25) mmol/L ABG Total CO2 (19-24) mmol/L ABG O2 Saturation 98.4 H (94-97) % ABG Hematocrit (34.0-46.0) % ABG Glucose (75-99) mg/dL Hemoglobin (13.0-17.5) gm/dL Sodium (137-145) mmol/L Chloride (98-107) mmol/L Carbon Dioxide (22-30) mmol/L Creatinine (0.66-1.25) mg/dL Glucose (74-99) mg/dL POC Glucose (mg/dL) 194 H (70-110) mg/dL Calcium (8.4-10.2) mg/dL Magnesium (1.6-2.3) mg/dL AST (17-59) U/L Alkaline Phosphatase (38-126) U/L Total Protein (6.3-8.2) g/dL Albumin (3.5-5.0) g/dL Arterial Blood Glucose (75-99) mg/dL Crossmatch 04/14/23 04/14/23 04/14/23 Range/Units 18:00 18:52 20:01 WBC (3.8-10.6) k/uL RBC (4.30-5.90) m/uL Hgb (13.0-17.5) gm/dL Hct (39.0-53.0) % Neutrophils # (1.3-7.7) k/uL Lymphocytes # (1.0-4.8) k/uL PT (10.0-12.5) sec INR (<1.2) ABG pH (7.35-7.45) ABG pO2 (83-108) mmHg ABG HCO3 (21-25) mmol/L ABG Total CO2 (19-24) mmol/L ABG O2 Saturation (94-97) % ABG Hematocrit (34.0-46.0) % ABG Glucose (75-99) mg/dL Hemoglobin (13.0-17.5) gm/dL Sodium (137-145) mmol/L Chloride (98-107) mmol/L Carbon Dioxide (22-30) mmol/L Creatinine (0.66-1.25) mg/dL Glucose (74-99) mg/dL POC Glucose (mg/dL) 170 H 175 H 144 H (70-110) mg/dL Calcium (8.4-10.2) mg/dL Magnesium (1.6-2.3) mg/dL AST (17-59) U/L Alkaline Phosphatase (38-126) U/L Total Protein (6.3-8.2) g/dL Albumin (3.5-5.0) g/dL Arterial Blood Glucose (75-99) mg/dL Crossmatch 04/14/23 04/14/23 04/14/23 Range/Units 21:00 21:59 22:52 WBC (3.8-10.6) k/uL RBC (4.30-5.90) m/uL Hgb (13.0-17.5) gm/dL Hct (39.0-53.0) % Neutrophils # (1.3-7.7) k/uL Lymphocytes # (1.0-4.8) k/uL PT (10.0-12.5) sec INR (<1.2) ABG pH (7.35-7.45) ABG pO2 (83-108) mmHg ABG HCO3 (21-25) mmol/L ABG Total CO2 (19-24) mmol/L ABG O2 Saturation (94-97) % ABG Hematocrit (34.0-46.0) % ABG Glucose (75-99) mg/dL Hemoglobin (13.0-17.5) gm/dL Sodium (137-145) mmol/L Chloride (98-107) mmol/L Carbon Dioxide (22-30) mmol/L Creatinine (0.66-1.25) mg/dL Glucose (74-99) mg/dL POC Glucose (mg/dL) 146 H 150 H 139 H (70-110) mg/dL Calcium (8.4-10.2) mg/dL Magnesium (1.6-2.3) mg/dL AST (17-59) U/L Alkaline Phosphatase (38-126) U/L Total Protein (6.3-8.2) g/dL Albumin (3.5-5.0) g/dL Arterial Blood Glucose (75-99) mg/dL Crossmatch 04/14/23 04/15/23 04/15/23 Range/Units 23:53 01:00 02:03 WBC (3.8-10.6) k/uL RBC (4.30-5.90) m/uL Hgb (13.0-17.5) gm/dL Hct (39.0-53.0) % Neutrophils # (1.3-7.7) k/uL Lymphocytes # (1.0-4.8) k/uL PT (10.0-12.5) sec INR (<1.2) ABG pH (7.35-7.45) ABG pO2 (83-108) mmHg ABG HCO3 (21-25) mmol/L ABG Total CO2 (19-24) mmol/L ABG O2 Saturation (94-97) % ABG Hematocrit (34.0-46.0) % ABG Glucose (75-99) mg/dL Hemoglobin (13.0-17.5) gm/dL Sodium (137-145) mmol/L Chloride (98-107) mmol/L Carbon Dioxide (22-30) mmol/L Creatinine (0.66-1.25) mg/dL Glucose (74-99) mg/dL POC Glucose (mg/dL) 131 H 121 H 115 H (70-110) mg/dL Calcium (8.4-10.2) mg/dL Magnesium (1.6-2.3) mg/dL AST (17-59) U/L Alkaline Phosphatase (38-126) U/L Total Protein (6.3-8.2) g/dL Albumin (3.5-5.0) g/dL Arterial Blood Glucose (75-99) mg/dL Crossmatch 04/15/23 04/15/23 04/15/23 Range/Units 02:59 03:56 03:57 WBC (3.8-10.6) k/uL RBC 3.92 L (4.30-5.90) m/uL Hgb 11.8 L (13.0-17.5) gm/dL Hct 34.4 L (39.0-53.0) % Neutrophils # 9.3 H (1.3-7.7) k/uL Lymphocytes # 0.6 L (1.0-4.8) k/uL PT (10.0-12.5) sec INR (<1.2) ABG pH (7.35-7.45) ABG pO2 (83-108) mmHg ABG HCO3 (21-25) mmol/L ABG Total CO2 (19-24) mmol/L ABG O2 Saturation (94-97) % ABG Hematocrit (34.0-46.0) % ABG Glucose (75-99) mg/dL Hemoglobin (13.0-17.5) gm/dL Sodium (137-145) mmol/L Chloride (98-107) mmol/L Carbon Dioxide (22-30) mmol/L Creatinine (0.66-1.25) mg/dL Glucose (74-99) mg/dL POC Glucose (mg/dL) 117 H 116 H (70-110) mg/dL Calcium (8.4-10.2) mg/dL Magnesium (1.6-2.3) mg/dL AST (17-59) U/L Alkaline Phosphatase (38-126) U/L Total Protein (6.3-8.2) g/dL Albumin (3.5-5.0) g/dL Arterial Blood Glucose (75-99) mg/dL Crossmatch 04/15/23 04/15/23 04/15/23 Range/Units 03:57 05:07 06:14 WBC (3.8-10.6) k/uL RBC (4.30-5.90) m/uL Hgb (13.0-17.5) gm/dL Hct (39.0-53.0) % Neutrophils # (1.3-7.7) k/uL Lymphocytes # (1.0-4.8) k/uL PT (10.0-12.5) sec INR (<1.2) ABG pH (7.35-7.45) ABG pO2 (83-108) mmHg ABG HCO3 (21-25) mmol/L ABG Total CO2 (19-24) mmol/L ABG O2 Saturation (94-97) % ABG Hematocrit (34.0-46.0) % ABG Glucose (75-99) mg/dL Hemoglobin (13.0-17.5) gm/dL Sodium 133 L (137-145) mmol/L Chloride (98-107) mmol/L Carbon Dioxide 20 L (22-30) mmol/L Creatinine 0.53 L (0.66-1.25) mg/dL Glucose 110 H (74-99) mg/dL POC Glucose (mg/dL) 120 H 134 H (70-110) mg/dL Calcium (8.4-10.2) mg/dL Magnesium (1.6-2.3) mg/dL AST (17-59) U/L Alkaline Phosphatase (38-126) U/L Total Protein 5.7 L (6.3-8.2) g/dL Albumin (3.5-5.0) g/dL Arterial Blood Glucose (75-99) mg/dL Crossmatch 04/15/23 04/15/23 04/15/23 Range/Units 07:02 08:22 12:09 WBC (3.8-10.6) k/uL RBC (4.30-5.90) m/uL Hgb (13.0-17.5) gm/dL Hct (39.0-53.0) % Neutrophils # (1.3-7.7) k/uL Lymphocytes # (1.0-4.8) k/uL PT (10.0-12.5) sec INR (<1.2) ABG pH (7.35-7.45) ABG pO2 (83-108) mmHg ABG HCO3 (21-25) mmol/L ABG Total CO2 (19-24) mmol/L ABG O2 Saturation (94-97) % ABG Hematocrit (34.0-46.0) % ABG Glucose (75-99) mg/dL Hemoglobin (13.0-17.5) gm/dL Sodium (137-145) mmol/L Chloride (98-107) mmol/L Carbon Dioxide (22-30) mmol/L Creatinine (0.66-1.25) mg/dL Glucose (74-99) mg/dL POC Glucose (mg/dL) 129 H 132 H 127 H (70-110) mg/dL Calcium (8.4-10.2) mg/dL Magnesium (1.6-2.3) mg/dL AST (17-59) U/L Alkaline Phosphatase (38-126) U/L Total Protein (6.3-8.2) g/dL Albumin (3.5-5.0) g/dL Arterial Blood Glucose (75-99) mg/dL Crossmatch Assessment and Plan Assessment: Coronary artery disease status post coronary artery bypass grafting with a PUCKETT to the LAD, sequential left radial artery graft to the first and second obtuse marginal branches of the circumflex artery, saphenous vein graft to the RCA and left atrial appendage clipping. Post operative day #1 Diabetes mellitus, type II Hyperlipidemia Hypertension History of diverticulitis with subsequent bowel for aeration with colostomy placement and subsequent reversal Lifelong nonsmoker Plan: The patient was seen and evaluated Chest x-ray, labs and medications reviewed Currently on 2 L nasal cannula Titrate the FiO2 as tolerated Encourage the increased use of the incentive spirometer We will continue to follow I have personally seen and examined the patient, performed the documentation and the assessment and plan as written. Number of minutes spent on the visit: 10.
[2023-04-15 14:52] LABS: Glucose,Whole Blood 140 mg/dL (70-110)
[2023-04-15 16:30] LABS: Glucose,Whole Blood 166 mg/dL (70-110)
--- NOTE | 2023-04-15 17:29 | P.HPIM ---
History of Present Illness H&P Date: 04/15/23 Chief Complaint: medical management 73 year old man with history of HTN, HLD, DM, CAD who presented for CABG. Medicine consulted for medical management. Pt was extubated at 3.5 hours post op and is doing well. He underwent PUCKETT to LAD, left radial artery graft to OM1 and OM2, SVG to RCA and left atrial appendage clipping. Pt has one left chest tube and one mediastinal tube, as well as [place]-fabian catheter. Sugars are well controlled on insulin gtt. Had been on dilt gtt which was discontinued, nitro gtt which was discontinued. Pt reports to me that he is feeling some pain in the chest at the site of the incision, but pain has been controlled with norco. He relays that he is looking forward to ambulating with nursing supervision today. Gen: awake, alert HEENT: normocephalic, atraumatic, good hearing acuity, moist mucous membranes Resp: good air exchange, breathing comfortably with no accessory muscle use CVS: good distal perfusion x 4, chest tube, mediastinal tube, [place]-Fabian GI: soft, NTTP, ND : no SPT, no CVAT, martinez catheter is present MSK: no pitting edema, no clubbing Neuro: non-focal, moving all extremities Psych: cooperative, euthymic mood Assessment/plan: CAD status post CABG Hypertension Hyperlipidemia Diabetes type 2 Plan: Continue insulin drip, follow sugars with goal blood sugar less than 150 For CAD, patient is on aspirin 325 mg daily, atorvastatin 400 mg daily, metoprolol 25 mg twice a day, Plavix 75 mg daily PT/OT Continue current the intensive care unit Patient is full code Past Medical History Past Medical History: Cancer, Diabetes Mellitus, GERD/Reflux, Hyperlipidemia, Hypertension Additional Past Medical History / Comment(s): History of diverticulitis with subsequent bowel perforation and colostomy placement with subsequent reversal of the colostomy,covid infection 2019 or 2020 History of Any Multi-Drug Resistant Organisms: None Reported Past Surgical History: Bowel Resection, Heart Catheterization Additional Past Surgical History / Comment(s): Bilateral eye cataract s urgery,colostomy later reversed Past Anesthesia/Blood Transfusion Reactions: Postoperative Nausea & Vomiting (PONV) Additional Past Anesthesia/Blood Transfusion Reaction / Comment(s): no hx blood transfusion Smoking Status: Never smoker - Past Family History Mother Family Medical History: No Reported History Father Family Medical History: Myocardial Infarction ([place]) Brother(s) Family Medical History: Coronary Artery Disease (CAD) Additional Family Medical History / Comment(s): CABG 4 vessels in pt's late 40 Medications and Allergies Home Medications Medication Instructions Recorded Confirmed Type Aspirin 81 mg PO DAILY 05/08/16 04/12/23 History Multivitamin [Men's Multi-Vitamin] 1 each PO DAILY 05/08/16 04/12/23 History metFORMIN HCL [Glucophage] 1,000 mg PO BID 05/08/16 04/12/23 History Nitroglycerin Sl Tabs [Nitrostat] 0.4 mg SUBLINGUAL Q5M PRN #25 tab 03/31/23 04/12/23 Rx Atorvastatin [Lipitor] 40 mg PO HS 04/01/23 04/12/23 History Omeprazole [PriLOSEC] 20 mg PO DAILY PRN 04/01/23 04/12/23 History Semaglutide [Ozempic] 0.5 ml SQ WEEKLY 04/01/23 04/12/23 History Isosorbide Mononitrate ER [Imdur] 30 mg PO DAILY #30 tab 04/02/23 04/12/23 Rx Metoprolol Tartrate [Lopressor] 25 mg PO BID #60 tab 04/02/23 04/12/23 Rx amLODIPine [Norvasc] 5 mg PO DAILY #30 tab 04/02/23 04/12/23 Rx lisinopriL [Zestril] 10 mg PO DAILY #30 tab 04/02/23 04/12/23 Rx Allergies Allergy/AdvReac Type Severity Reaction Status Date / Time No Known Allergies Allergy Verified 04/14/23 06:54 Physical Exam Osteopathic Statement: *. No significant issues noted on an osteopathic structural exam other than those noted in the History and Physical/Consult. Vitals: Vital Signs Temp Pulse Resp Pulse Ox 04/15/23 17:00 77 26 H 93 L 04/15/23 16:00 98.3 F 78 29 H 93 L 04/15/23 15:27 75 04/15/23 15:17 73 04/15/23 15:00 76 28 H 94 L 04/15/23 14:00 72 22 93 L 04/15/23 13:00 66 23 93 L 04/15/23 12:30 74 20 93 L 04/15/23 12:00 98 F 77 25 H 93 L 04/15/23 11:30 81 20 95 04/15/23 11:00 81 23 95 04/15/23 10:54 85 04/15/23 10:44 82 04/15/23 10:30 81 19 95 04/15/23 10:00 82 27 H 94 L 04/15/23 09:30 81 22 94 L 04/15/23 09:00 79 25 H 95 04/15/23 08:30 90 25 H 93 L 04/15/23 08:15 88 04/15/23 08:05 88 04/15/23 08:00 98.6 F 86 29 H 94 L 04/15/23 07:30 86 24 93 L 04/15/23 07:00 98.6 F 87 23 94 L 04/15/23 03:30 84 26 H 92 L 04/15/23 03:15 84 20 92 L 04/15/23 03:00 86 26 H 93 L 04/15/23 02:45 80 24 92 L 04/15/23 02:30 86 26 H 92 L 04/15/23 02:15 87 22 92 L 04/15/23 02:00 84 27 H 94 L 04/15/23 01:45 84 25 H 94 L 04/15/23 01:30 82 24 93 L 04/15/23 01:15 84 26 H 94 L 04/15/23 01:00 84 23 94 L 04/15/23 00:45 81 21 94 L 04/15/23 00:30 80 24 93 L 04/15/23 00:15 83 24 93 L 04/15/23 00:00 99.1 F 84 29 H 94 L 04/14/23 23:45 80 21 94 L 04/14/23 23:30 80 24 94 L 04/14/23 23:15 84 25 H 94 L 04/14/23 23:00 85 24 94 L 04/14/23 22:45 89 24 94 L 04/14/23 22:30 79 21 94 L 04/14/23 22:15 80 20 94 L 04/14/23 22:00 85 23 95 04/14/23 21:45 81 21 95 04/14/23 21:30 81 23 96 04/14/23 21:15 85 28 H 94 L 04/14/23 21:00 87 26 H 95 04/14/23 20:45 91 25 H 95 04/14/23 20:43 92 04/14/23 20:34 85 04/14/23 20:30 83 23 94 L 04/14/23 20:15 91 20 94 L 04/14/23 20:00 98.6 F 80 20 96 04/14/23 19:45 86 19 94 L 04/14/23 19:30 82 18 95 04/14/23 19:00 83 26 H 95 04/14/23 18:30 75 20 95 04/14/23 18:00 82 22 94 L 04/14/23 17:30 75 22 96 Intake and Output 04/15/23 04/15/23 04/15/23 06:59 14:59 22:59 Intake Total 813.083 405.058 338 Output Total 725 305 100 Balance 88.083 100.058 238 Intake: IV 503 391 138 CO/CI 40 Lactated Ringers 1,000 ml 350 340 120 @ 20 mls/hr IV .Q24H [facility] Rx#:[id number] Pressure Bags 63 51 18 ceFAZolin 2 gm In Sodium 50 Chloride 0.9% 50 ml @ 100 mls/hr IVPB Q8H [facility] Rx#: [id number] Intake, IV Titration 60.083 14.058 Amount Clevidipine Butyrate 25 44.133 3.2 mg In Empty Bag 1 bag @ 1 MG/HR 2 mls/hr IV .Q24H [facility] Rx#:[id number] Insulin Regular 100 unit 15.950 10.858 In Sodium Chloride 0.9% 100 ml @ Per Protocol IV .Q0M [facility] Rx#:[id number] Oral 250 200 Output: Chest Tube Drainage 250 170 15 1 MS 90 60 2 L/R Pl 160 60 Pleural Catheter Left 25 15 Pleural Catheter Right 25 0 Drainage 40 L. arm KRYSTAL 40 Urine 435 135 85 Other: Voiding Method Indwelling Catheter Indwelling Catheter Indwelling Catheter Weight 79.9 kg 79.9 kg ABP, PAP, CO, CI - Last 8 Hours Arterial Blood Pressure 118/52 Arterial Blood Pressure 109/55 Arterial Blood Pressure 123/54 Arterial Blood Pressure 116/55 Arterial Blood Pressure 102/49 Arterial Blood Pressure 106/53 Arterial Blood Pressure 118/62 Arterial Blood Pressure 133/60 Arterial Blood Pressure 134/57 Arterial Blood Pressure 141/63 Arterial Blood Pressure 137/57 Arterial Blood Pressure 121/60 Cardiac Output 6.7 Cardiac Index 3.5 Results CBC & Chem 7: 04/15/23 03:57 04/15/23 03:57 Labs: Abnormal Lab Results - Last 24 Hours (Table) 04/09/23 04/14/23 04/14/23 Range/Units 08:29 18:00 18:00 WBC 15.0 H (3.8-10.6) k/uL RBC 3.57 L (4.30-5.90) m/uL Hgb 11.2 L (13.0-17.5) gm/dL Hct 31.9 L (39.0-53.0) % Neutrophils # 13.9 H (1.3-7.7) k/uL Lymphocytes # 0.6 L (1.0-4.8) k/uL Sodium (137-145) mmol/L Carbon Dioxide (22-30) mmol/L Creatinine (0.66-1.25) mg/dL Glucose (74-99) mg/dL POC Glucose (mg/dL) 170 H (70-110) mg/dL Total Protein (6.3-8.2) g/dL Crossmatch See Detail 04/14/23 04/14/23 04/14/23 Range/Units 18:52 20:01 21:00 WBC (3.8-10.6) k/uL RBC (4.30-5.90) m/uL Hgb (13.0-17.5) gm/dL Hct (39.0-53.0) % Neutrophils # (1.3-7.7) k/uL Lymphocytes # (1.0-4.8) k/uL Sodium (137-145) mmol/L Carbon Dioxide (22-30) mmol/L Creatinine (0.66-1.25) mg/dL Glucose (74-99) mg/dL POC Glucose (mg/dL) 175 H 144 H 146 H (70-110) mg/dL Total Protein (6.3-8.2) g/dL Crossmatch 04/14/23 04/14/23 04/14/23 Range/Units 21:59 22:52 23:53 WBC (3.8-10.6) k/uL RBC (4.30-5.90) m/uL Hgb (13.0-17.5) gm/dL Hct (39.0-53.0) % Neutrophils # (1.3-7.7) k/uL Lymphocytes # (1.0-4.8) k/uL Sodium (137-145) mmol/L Carbon Dioxide (22-30) mmol/L Creatinine (0.66-1.25) mg/dL Glucose (74-99) mg/dL POC Glucose (mg/dL) 150 H 139 H 131 H (70-110) mg/dL Total Protein (6.3-8.2) g/dL Crossmatch 04/15/23 04/15/23 04/15/23 Range/Units 01:00 02:03 02:59 WBC (3.8-10.6) k/uL RBC (4.30-5.90) m/uL Hgb (13.0-17.5) gm/dL Hct (39.0-53.0) % Neutrophils # (1.3-7.7) k/uL Lymphocytes # (1.0-4.8) k/uL Sodium (137-145) mmol/L Carbon Dioxide (22-30) mmol/L Creatinine (0.66-1.25) mg/dL Glucose (74-99) mg/dL POC Glucose (mg/dL) 121 H 115 H 117 H (70-110) mg/dL Total Protein (6.3-8.2) g/dL Crossmatch 04/15/23 04/15/23 04/15/23 Range/Units 03:56 03:57 03:57 WBC (3.8-10.6) k/uL RBC 3.92 L (4.30-5.90) m/uL Hgb 11.8 L (13.0-17.5) gm/dL Hct 34.4 L (39.0-53.0) % Neutrophils # 9.3 H (1.3-7.7) k/uL Lymphocytes # 0.6 L (1.0-4.8) k/uL Sodium 133 L (137-145) mmol/L Carbon Dioxide 20 L (22-30) mmol/L Creatinine 0.53 L (0.66-1.25) mg/dL Glucose 110 H (74-99) mg/dL POC Glucose (mg/dL) 116 H (70-110) mg/dL Total Protein 5.7 L (6.3-8.2) g/dL Crossmatch 04/15/23 04/15/23 04/15/23 Range/Units 05:07 06:14 07:02 WBC (3.8-10.6) k/uL RBC (4.30-5.90) m/uL Hgb (13.0-17.5) gm/dL Hct (39.0-53.0) % Neutrophils # (1.3-7.7) k/uL Lymphocytes # (1.0-4.8) k/uL Sodium (137-145) mmol/L Carbon Dioxide (22-30) mmol/L Creatinine (0.66-1.25) mg/dL Glucose (74-99) mg/dL POC Glucose (mg/dL) 120 H 134 H 129 H (70-110) mg/dL Total Protein (6.3-8.2) g/dL Crossmatch 04/15/23 04/15/23 04/15/23 Range/Units 08:22 12:09 14:50 WBC (3.8-10.6) k/uL RBC (4.30-5.90) m/uL Hgb (13.0-17.5) gm/dL Hct (39.0-53.0) % Neutrophils # (1.3-7.7) k/uL Lymphocytes # (1.0-4.8) k/uL Sodium (137-145) mmol/L Carbon Dioxide (22-30) mmol/L Creatinine (0.66-1.25) mg/dL Glucose (74-99) mg/dL POC Glucose (mg/dL) 132 H 127 H 140 H (70-110) mg/dL Total Protein (6.3-8.2) g/dL Crossmatch 04/15/23 Range/Units 16:28 WBC (3.8-10.6) k/uL RBC (4.30-5.90) m/uL Hgb (13.0-17.5) gm/dL Hct (39.0-53.0) % Neutrophils # (1.3-7.7) k/uL Lymphocytes # (1.0-4.8) k/uL Sodium (137-145) mmol/L Carbon Dioxide (22-30) mmol/L Creatinine (0.66-1.25) mg/dL Glucose (74-99) mg/dL POC Glucose (mg/dL) 166 H (70-110) mg/dL Total Protein (6.3-8.2) g/dL Crossmatch Thrombosis Risk Factor Assmnt - Choose All That Apply Other Risk Factors: Yes Each Risk Factor Represents 2 Points: Age 61-74 years, Major surgery Thrombosis Risk Factor Assessment Total Risk Factor Score: 4 Thrombosis Risk Factor Assessment Level: Moderate Risk
[2023-04-15 18:20] LABS: Glucose,Whole Blood 212 mg/dL (70-110)
[2023-04-15 20:04] LABS: Glucose,Whole Blood 155 mg/dL (70-110)
[2023-04-15 21:06] LABS: Glucose,Whole Blood 130 mg/dL (70-110)
[2023-04-15] MEDS: INSULIN REGULAR 100 UNIT in SODIUM CHLORIDE 0.9% 100 ML IV SCH (21:09)
[2023-04-15] MEDS: SENNOSIDES-DOCUSATE SODIUM 1 EACH TAB PO SCH (21:12)
[2023-04-15 22:04] LABS: Glucose,Whole Blood 121 mg/dL (70-110)
[2023-04-15 23:03] LABS: Glucose,Whole Blood 120 mg/dL (70-110)
[2023-04-16] MEDS: KETOROLAC 15 MG/ML 1 ML VIAL IVP SCH ×5 (00:09→23:17)
[2023-04-16] MEDS: HEPARIN SODIUM,PORCINE 5,000 UNIT/ML 1 ML VIAL SQ SCH ×4 (00:09→23:17)
[2023-04-16 00:14] LABS: Glucose,Whole Blood 110 mg/dL (70-110)
[2023-04-16 02:02] LABS: Glucose,Whole Blood 120 mg/dL (70-110)
[2023-04-16 03:03] LABS: Glucose,Whole Blood 124 mg/dL (70-110)
[2023-04-16] MEDS: HYDROcodone/APAP 5-325MG 1 EACH TAB PO PRN (03:37)
[2023-04-16 03:58] LABS: Glucose,Whole Blood 128 mg/dL (70-110)
[2023-04-16 04:10] LABS: Ionized Calcium 4.9 mg/dL (4.5-5.3)
[2023-04-16 04:19] LABS: ALT 10 U/L (4-49); AST 21 U/L (17-59); African American GFR (CKD) >90 (>60 ml/min/1.73 sqM); Albumin 3.2 g/dL (3.5-5.0); Alkaline Phosphatase 42 U/L (38-126); Anion Gap 9 mmol/L; Blood Urea Nitrogen 14 mg/dL (9-20); Calcium 8.7 mg/dL (8.4-10.2); Carbon Dioxide 21 mmol/L (22-30); Chloride 101 mmol/L (98-107); Glucose 119 mg/dL (74-99); Non-African American GFR(CKD) 88 (>60 ml/min/1.73 sqM); Potassium 3.9 mmol/L (3.5-5.1); Sodium 131 mmol/L (137-145); Total Protein 5.1 g/dL (6.3-8.2)
[2023-04-16 04:31] LABS: Basophils % (A) 0 %; Eosinophils # (A) 0.1 k/uL (0-0.7); Eosinophils % (A) 2 %; HCT 28.7 % (39.0-53.0); HGB 10.1 gm/dL (13.0-17.5); Lymphocytes % (A) 13 %; MCH 31.1 pg (25.0-35.0); Mean Platelet Volume 7.9; Monocytes # (A) 0.3 k/uL (0-1.0); Monocytes % (A) 4 %; Neutrophils # (A) 5.9 k/uL (1.3-7.7); Neutrophils % (A) 80 %; Platelet Count 175 k/uL (150-450); RBC 3.23 m/uL (4.30-5.90); RDW 13.6 % (11.5-15.5); WBC 7.4 k/uL (3.8-10.6)
[2023-04-16 05:00] LABS: Glucose,Whole Blood 119 mg/dL (70-110)
[2023-04-16] MEDS ORDERED: POTASSIUM CHLORIDE ER 20 MEQ TAB.ER PO SCH (06:00)
[2023-04-16 06:21] LABS: Glucose,Whole Blood 121 mg/dL (70-110)
[2023-04-16 07:12] LABS: Glucose,Whole Blood 126 mg/dL (70-110)
--- NOTE | 2023-04-16 07:51 | P.PN ---
Subjective Progress Note Date: 04/16/23 PROGRESS NOTE The patient is a 73-year-old male with a family history of premature CAD, hypertension, diabetes and hyperlipidemia, followed by Dr. Sidhu who presented earlier this month with symptoms of chest discomfort and had a significantly abnormal stress test. He subsequently underwent cardiac catheterization on April 01 and was found to have significant obstructive disease involving the RCA, LAD and left circumflex. He was admitted today electively and underwent coronary artery bypass grafting. He received a PUCKETT to LAD and left radial to the first and second obtuse marginal branch and SVG to the RCA with closure of the left atrial appendage. He is intubated, starting to wake up. In sinus mechanism and hemodynamically stable. He has no history of CHF or significant valvular disease. There is no history of atrial fibrillation. April 15: The patient is extubated, sitting up in the chair. He is in sinus mechanism. He denies any significant dyspnea. He has soreness in the chest. He denies any nausea or vomiting. Hemodynamically he is stable on no vasopressors. His urinary output is been stable. April 16: The patient is feeling well this morning, he continues to be in sinus mechanism. He has mild soreness in the chest. He is on no vasopressors. He denies any dizziness or palpitations. He denies any nausea or vomiting. He continues to have the chest tube. He is ambulating. Medications: Aspirin, Lasix 75 mg daily, Norvasc 5 mg daily, metoprolol 50 mg twice a day, Lipitor 40 mg daily, Plavix 75 mg daily PHYSICAL EXAMINATION: Blood pressure 123/59 heart rate 93 LUNGS: Clear to auscultation HEART: Regular rate and rhythm, S1, S2. No S3. Systolic ejection murmur, rub noted ABDOMEN: Soft, nontender, no organomegaly EXTREMETIES: No edema LAB: Hemoglobin 10.1, BUN 14, creatinine 0.84 IMPRESSION: 1. Status post CABG, stable 2. History of hypertension 3. History of hyperlipidemia 4. History of diabetes PLAN: 1. Continue present therapy 2. Incentive spirometry 3. Increase physical activity 4. Depending on the progress further recommendations will be made Objective - Vital Signs Vital signs: Vital Signs Temp 98.4 F 04/16/23 04:00 Pulse 93 04/16/23 07:00 Resp 30 H 04/16/23 07:00 BP 144/81 04/14/23 07:15 Pulse Ox 94 L 04/16/23 07:00 FiO2 50 04/14/23 16:01 Intake & Output 04/15/23 04/16/23 04/16/23 18:59 06:59 18:59 Intake Total 1299.865 601.688 26 Output Total 445 1907 280 Balance 854.865 -1305.312 -254 Weight 79.9 kg 82.5 kg Intake: IV 575 332 26 Lactated Ringers 1,000 ml 500 260 20 @ 20 mls/hr IV .Q24H [facility] Rx#:[id number] Pressure Bags 75 72 6 Intake, IV Titration 524.865 19.688 Amount Albumin Human 5% 250 ml 500 In Empty Bag 1 bag @ 250 mls/hr IVPB Q1HR PRN Rx#: [id number] Clevidipine Butyrate 25 3.2 mg In Empty Bag 1 bag @ 1 MG/HR 2 mls/hr IV .Q24H [facility] Rx#:[id number] Insulin Regular 100 unit 21.665 19.688 In Sodium Chloride 0.9% 100 ml @ Per Protocol IV .Q0M [facility] Rx#:[id number] Oral 200 Tube Feeding 250 Output: Chest Tube Drainage 195 102 1 MS 60 2 L/R Pl 60 Pleural Catheter Left 50 53 Pleural Catheter Right 25 49 Drainage 40 L. arm KRYSTAL 40 Urine 250 1765 280 Other: Voiding Method Indwelling Catheter Indwelling Catheter ABP, PAP, CO, CI - Last Documented Arterial Blood Pressure 123/59 Pulmonary Artery Pressure 23/10 Cardiac Output 6.7 Cardiac Index 3.5 - Labs CBC & Chem 7: 04/16/23 03:56 04/16/23 03:56 Labs: Abnormal Lab Results - Last 24 Hours (Table) 04/15/23 04/15/23 04/15/23 Range/Units 08:22 12:09 14:50 RBC (4.30-5.90) m/uL Hgb (13.0-17.5) gm/dL Hct (39.0-53.0) % Sodium (137-145) mmol/L Carbon Dioxide (22-30) mmol/L Glucose (74-99) mg/dL POC Glucose (mg/dL) 132 H 127 H 140 H (70-110) mg/dL Total Protein (6.3-8.2) g/dL Albumin (3.5-5.0) g/dL 04/15/23 04/15/23 04/15/23 Range/Units 16:28 18:19 20:02 RBC (4.30-5.90) m/uL Hgb (13.0-17.5) gm/dL Hct (39.0-53.0) % Sodium (137-145) mmol/L Carbon Dioxide (22-30) mmol/L Glucose (74-99) mg/dL POC Glucose (mg/dL) 166 H 212 H 155 H (70-110) mg/dL Total Protein (6.3-8.2) g/dL Albumin (3.5-5.0) g/dL 04/15/23 04/15/23 04/15/23 Range/Units 21:04 22:02 23:02 RBC (4.30-5.90) m/uL Hgb (13.0-17.5) gm/dL Hct (39.0-53.0) % Sodium (137-145) mmol/L Carbon Dioxide (22-30) mmol/L Glucose (74-99) mg/dL POC Glucose (mg/dL) 130 H 121 H 120 H (70-110) mg/dL Total Protein (6.3-8.2) g/dL Albumin (3.5-5.0) g/dL 04/16/23 04/16/23 04/16/23 Range/Units 02:01 03:02 03:56 RBC 3.23 L (4.30-5.90) m/uL Hgb 10.1 L (13.0-17.5) gm/dL Hct 28.7 L (39.0-53.0) % Sodium (137-145) mmol/L Carbon Dioxide (22-30) mmol/L Glucose (74-99) mg/dL POC Glucose (mg/dL) 120 H 124 H (70-110) mg/dL Total Protein (6.3-8.2) g/dL Albumin (3.5-5.0) g/dL 04/16/23 04/16/23 04/16/23 Range/Units 03:56 03:56 04:59 RBC (4.30-5.90) m/uL Hgb (13.0-17.5) gm/dL Hct (39.0-53.0) % Sodium 131 L (137-145) mmol/L Carbon Dioxide 21 L (22-30) mmol/L Glucose 119 H (74-99) mg/dL POC Glucose (mg/dL) 128 H 119 H (70-110) mg/dL Total Protein 5.1 L (6.3-8.2) g/dL Albumin 3.2 L (3.5-5.0) g/dL 04/16/23 04/16/23 Range/Units 06:18 07:10 RBC (4.30-5.90) m/uL Hgb (13.0-17.5) gm/dL Hct (39.0-53.0) % Sodium (137-145) mmol/L Carbon Dioxide (22-30) mmol/L Glucose (74-99) mg/dL POC Glucose (mg/dL) 121 H 126 H (70-110) mg/dL Total Protein (6.3-8.2) g/dL Albumin (3.5-5.0) g/dL
[2023-04-16] MEDS: amLODIPine 5 MG TAB PO SCH (08:21)
[2023-04-16] MEDS: PANTOPRAZOLE 40 MG TABLET PO SCH (08:21)
[2023-04-16] MEDS: ATORVASTATIN 40 MG TAB PO SCH (08:21)
[2023-04-16] MEDS: METOPROLOL TARTRATE 50 MG TAB PO SCH ×2 (08:21→21:19)
[2023-04-16] MEDS: CLOPIDOGREL 75 MG TAB PO SCH (08:21)
[2023-04-16] MEDS: ASPIRIN 325 MG TAB PO SCH (08:21)
--- NOTE | 2023-04-16 08:26 | XR ---
EXAMINATION TYPE: XR chest 1V portable DATE OF EXAM: 04/16/2023 COMPARISON: 04/15/2023 HISTORY: Postop TECHNIQUE: Single frontal view of the chest is obtained. FINDINGS: [place]-Fabian catheter is been removed and there is interval development of a 10% right apical pneumothorax. Post surgical changes are seen with elevated hemidiaphragm and bibasilar consolidation most likely in the basis of atelectasis. No overt failure. Bilateral chest tubes noted. IMPRESSION: 1. Interval development of 10-15% right apical pneumothorax. 2. Bilateral postoperative atelectasis favored over pneumonia.
[2023-04-16 08:30] LABS: Glucose,Whole Blood 181 mg/dL (70-110)
[2023-04-16] MEDS: IPRATROPIUM-ALBUTEROL 3 ML NEB INHALATION SCH ×4 (08:43→20:01)
[2023-04-16] MEDS ORDERED: POTASSIUM CHLORIDE ER 20 MEQ TAB.ER PO STA (09:36)
[2023-04-16] MEDS ORDERED: FUROSEMIDE 10 MG/ML 4 ML VIAL IV STA (09:36)
[2023-04-16] MEDS ORDERED: ACETAMINOPHEN TAB 500 MG TAB PO PRN (09:38)
[2023-04-16] MEDS ORDERED: INSULIN DETEMIR (LEVEMIR) 100 UNIT/ML SYR SQ STA (10:55)
--- NOTE | 2023-04-16 10:59 | P.PN ---
Subjective Progress Note Date: 04/16/23 NO new copmlaints today. Ambulating well. Transitioning to floor today. Gen: awake, alert HEENT: normocephalic, atraumatic, good hearing acuity, moist mucous membranes Resp: good air exchange, breathing comfortably with no accessory muscle use CVS: good distal perfusion x 4, chest tube, mediastinal tube, [place]-Fabian GI: soft, NTTP, ND : no SPT, no CVAT, martinez catheter is present MSK: no pitting edema, no clubbing Neuro: non-focal, moving all extremities Psych: cooperative, euthymic mood Assessment/plan: CAD status post CABG Hypertension Hyperlipidemia Diabetes type 2 Plan: Insulin gtt transitioned to 15U levemir + aspart SSI For CAD, patient is on aspirin 325 mg daily, atorvastatin 400 mg daily, metoprolol 25 mg twice a day, Plavix 75 mg daily PT/OT Patient is full code Objective - Vital Signs Vital signs: Vital Signs Temp 98.6 F 04/16/23 08:00 Pulse 110 H 04/16/23 09:00 Resp 18 04/16/23 09:00 BP 144/81 04/14/23 07:15 Pulse Ox 93 L 04/16/23 09:00 FiO2 50 04/14/23 16:01 Intake & Output 04/15/23 04/16/23 04/16/23 18:59 06:59 18:59 Intake Total 1299.865 601.688 295.485 Output Total 445 1907 380 Balance 854.865 -1305.312 -84.515 Weight 79.9 kg 82.5 kg Intake: IV 575 332 52 Lactated Ringers 1,000 ml 500 260 40 @ 20 mls/hr IV .Q24H [facility] Rx#:[id number] Pressure Bags 75 72 12 Intake, IV Titration 524.865 19.688 3.485 Amount Albumin Human 5% 250 ml 500 In Empty Bag 1 bag @ 250 mls/hr IVPB Q1HR PRN Rx#: [id number] Clevidipine Butyrate 25 3.2 mg In Empty Bag 1 bag @ 1 MG/HR 2 mls/hr IV .Q24H [facility] Rx#:[id number] Insulin Regular 100 unit 21.665 19.688 3.485 In Sodium Chloride 0.9% 100 ml @ Per Protocol IV .Q0M [facility] Rx#:[id number] Oral 200 240 Tube Feeding 250 Output: Chest Tube Drainage 195 102 0 1 MS 60 2 L/R Pl 60 Pleural Catheter Left 50 53 0 Pleural Catheter Right 25 49 0 Drainage 40 0 L. arm KRYSTAL 40 0 Urine 250 1765 380 Other: Voiding Method Indwelling Catheter Indwelling Catheter ABP, PAP, CO, CI - Last Documented Arterial Blood Pressure 122/59 Pulmonary Artery Pressure 23/10 Cardiac Output 6.7 Cardiac Index 3.5 - Labs CBC & Chem 7: 04/16/23 03:56 04/16/23 03:56 Labs: Abnormal Lab Results - Last 24 Hours (Table) 04/15/23 04/15/23 04/15/23 Range/Units 12:09 14:50 16:28 RBC (4.30-5.90) m/uL Hgb (13.0-17.5) gm/dL Hct (39.0-53.0) % Sodium (137-145) mmol/L Carbon Dioxide (22-30) mmol/L Glucose (74-99) mg/dL POC Glucose (mg/dL) 127 H 140 H 166 H (70-110) mg/dL Total Protein (6.3-8.2) g/dL Albumin (3.5-5.0) g/dL 04/15/23 04/15/23 04/15/23 Range/Units 18:19 20:02 21:04 RBC (4.30-5.90) m/uL Hgb (13.0-17.5) gm/dL Hct (39.0-53.0) % Sodium (137-145) mmol/L Carbon Dioxide (22-30) mmol/L Glucose (74-99) mg/dL POC Glucose (mg/dL) 212 H 155 H 130 H (70-110) mg/dL Total Protein (6.3-8.2) g/dL Albumin (3.5-5.0) g/dL 04/15/23 04/15/23 04/16/23 Range/Units 22:02 23:02 02:01 RBC (4.30-5.90) m/uL Hgb (13.0-17.5) gm/dL Hct (39.0-53.0) % Sodium (137-145) mmol/L Carbon Dioxide (22-30) mmol/L Glucose (74-99) mg/dL POC Glucose (mg/dL) 121 H 120 H 120 H (70-110) mg/dL Total Protein (6.3-8.2) g/dL Albumin (3.5-5.0) g/dL 04/16/23 04/16/23 04/16/23 Range/Units 03:02 03:56 03:56 RBC 3.23 L (4.30-5.90) m/uL Hgb 10.1 L (13.0-17.5) gm/dL Hct 28.7 L (39.0-53.0) % Sodium 131 L (137-145) mmol/L Carbon Dioxide 21 L (22-30) mmol/L Glucose 119 H (74-99) mg/dL POC Glucose (mg/dL) 124 H (70-110) mg/dL Total Protein 5.1 L (6.3-8.2) g/dL Albumin 3.2 L (3.5-5.0) g/dL 04/16/23 04/16/23 04/16/23 Range/Units 03:56 04:59 06:18 RBC (4.30-5.90) m/uL Hgb (13.0-17.5) gm/dL Hct (39.0-53.0) % Sodium (137-145) mmol/L Carbon Dioxide (22-30) mmol/L Glucose (74-99) mg/dL POC Glucose (mg/dL) 128 H 119 H 121 H (70-110) mg/dL Total Protein (6.3-8.2) g/dL Albumin (3.5-5.0) g/dL 04/16/23 04/16/23 Range/Units 07:10 08:28 RBC (4.30-5.90) m/uL Hgb (13.0-17.5) gm/dL Hct (39.0-53.0) % Sodium (137-145) mmol/L Carbon Dioxide (22-30) mmol/L Glucose (74-99) mg/dL POC Glucose (mg/dL) 126 H 181 H (70-110) mg/dL Total Protein (6.3-8.2) g/dL Albumin (3.5-5.0) g/dL
[2023-04-16 12:04] LABS: Glucose,Whole Blood 136 mg/dL (70-110)
[2023-04-16] MEDS: INSULIN ASPART (NovoLOG) 100 UNIT/ML VIAL SQ SCH ×2 (12:06→17:23)
--- NOTE | 2023-04-16 13:12 | P.PN ---
Subjective Progress Note Date: 04/16/23 This is a pleasant 73-year-old male patient with a known history of IVs mellitus, type II, hyperlipidemia, hypertension, family history of early onset coronary artery disease. He had been having issues with heartburn and did undergo stress testing and subsequent cardiac catheterization. He was recommend ed coronary revascularization. He was brought in today electively. He did undergo off-pump coronary artery bypass grafting with a PUCKETT to the LAD, sequential left radial artery graft to the first and second obtuse marginal branches of the circumflex artery, saphenous vein graft to the RCA and left atrial appendage clipping. He is seen today in consultation in the intensive care unit. He was successfully extubated at 3-1/2 hours. He is currently awake and alert. He is in the 90s on 5 L/m per nasal cannula. He is on a insulin drip at 3.5 units per hour. Nitroglycerin drip at 5 mcg/m. Cardizem drip at 5 mg per hour. Lactated Ringer's at 50 MLS per hour. He has right left and mediastinal chest tubes in place. Pacer wires in place. Right IJ [place] catheter in place. PA pressure 23/10. CVP of 4. Cardiac output 5.7. Cardiac index 3.0. He did receive albumin. Asked x-ray reveals limited inspiration with left lower lobe consolidation and small effusion. Tiny left apical p neumothorax measuring less than 5%. White count 14.9. Hemoglobin 11.8. Platelets 260. Sodium 138. Potassium 3.8. Bicarb 19. BUN 9013. Creatinine 0.69. Glucose 194. Ionized calcium 4.8. Magnesium 1.5. AST 16. ALT 11. Albumin 3.2. Arterial blood gases prior to extubation revealed a pO2 of 111, pCO2 38 and a pH of 7.31 on 50% FiO2. The patient is seen today 04/15/2023 in follow-up in the intensive care unit. He is currently sitting up in a chair. Awake and alert in no acute distress. Maintaining O2 saturations in the 90s on 2 L/m per nasal cannula. He's in sinus rhythm. He is on an insulin drip at 2.5 units per hour. Lactated Ringer's at 40 ML's per hour. Still has mediastinal, right and left pleural chest tubes in place. His x-ray reveals postoperative changes. No sizable pneumothorax. White count 10.4. Hemoglobin 10.8. Platelets 264. Sodium 133. Potassium 3.7. Bicarb 20. BUN 10. Creatinine 0.53. Glucose 110. He is continued on bronchodilators. Continues to work well with the incentive spirometer. The patient is seen today 04/16/2023 in follow-up in the intensive care unit. He is currently sitting up in a chair. Awake and alert in no acute distress. Postoperative day #2. He has insulin drip at 1 unit an hour. Lactated Ringer's at 40 miles per hour. He is maintaining good O2 saturations in the 90s on 2 L/m per nasal cannula. He has a left and right chest tube still in place. Interval development of a 10-15% right apical pneumothorax. Bilateral postoperative atelectasis. He continues to work well with the incentive spirometer. White count 7.4. Hemoglobin 10.1. Platelets 175. Sodium 131. Potassium 3.9. Bicarb 21. BUN 14. Creatinine 0.84. Glucose 136. He remains on bronchodilators. Heparin for DVT prophylaxis. Objective - Vital Signs Vital signs: Vital Signs Temp 98.6 F 04/16/23 08:00 Pulse 87 04/16/23 12:20 Resp 18 04/16/23 11:00 BP 131/75 04/16/23 11:00 Pulse Ox 93 L 04/16/23 11:00 FiO2 50 04/14/23 16:01 Intake & Output 04/15/23 04/16/23 04/16/23 18:59 06:59 18:59 Intake Total 1299.865 601.688 341.485 Output Total 445 0817 2855 Balance 854.865 -1305.312 -6353.515 Weight 79.9 kg 82.5 kg Intake: IV 575 332 98 Lactated Ringers 1,000 ml 500 260 80 @ 20 mls/hr IV .Q24H WOODY Rx#:[id number] Pressure Bags 75 72 18 Intake, IV Titration 524.865 19.688 3.485 Amount Albumin Human 5% 250 ml 500 In Empty Bag 1 bag @ 250 mls/hr IVPB Q1HR PRN Rx#: [id number] Clevidipine Butyrate 25 3.2 mg In Empty Bag 1 bag @ 1 MG/HR 2 mls/hr IV .Q24H WOODY Rx#:[id number] Insulin Regular 100 unit 21.665 19.688 3.485 In Sodium Chloride 0.9% 100 ml @ Per Protocol IV .Q0M WOODY Rx#:[id number] Oral 200 240 Tube Feeding 250 Output: Chest Tube Drainage 195 102 0 1 MS 60 2 L/R Pl 60 Pleural Catheter Left 50 53 0 Pleural Catheter Right 25 49 0 Drainage 40 0 L. arm KRYSTAL 40 0 Urine 250 1765 2855 Other: Voiding Method Indwelling Catheter Indwelling Catheter Indwelling Catheter ABP, PAP, CO, CI - Last Documented Arterial Blood Pressure 122/59 Pulmonary Artery Pressure 23/10 Cardiac Output 6.7 Cardiac Index 3.5 - Exam GENERAL EXAM: Alert, pleasant 73-year-old male patient, up in a chair, on 2 L nasal cannula, comfortable in no apparent distress. HEAD: Normocephalic. EYES: Normal reaction of pupils, equal size. NOSE: Clear with pink turbinates. THROAT: No erythema or exudates. NECK: Right IJ Cordis in place No masses, no JVD. CHEST: Sternal dressing dry and intact. Heart hugger in place. Right, left chest tubes in place. Pacer wires in place. LUNGS: Equal air entry with crackles in the left lung base. CVS: S1 and S2 normal with no audible murmur, regular rhythm. ABDOMEN: No hepatosplenomegaly, hypoactive bowel sounds, no guarding or rigidity. SPINE: No scoliosis or deformity SKIN: No rashes CENTRAL NERVOUS SYSTEM: No focal deficits, tone is normal in all 4 extremities. EXTREMITIES: John wrap so bilateral lower extremities. KRYSTAL drain in the left upper extremity. Arterial line in place. Peripheral pulses are intact. - Labs CBC & Chem 7: 04/16/23 03:56 04/16/23 03:56 Labs: Abnormal Lab Results - Last 24 Hours (Table) 04/15/23 04/15/23 04/15/23 Range/Units 14:50 16:28 18:19 RBC (4.30-5.90) m/uL Hgb (13.0-17.5) gm/dL Hct (39.0-53.0) % Sodium (137-145) mmol/L Carbon Dioxide (22-30) mmol/L Glucose (74-99) mg/dL POC Glucose (mg/dL) 140 H 166 H 212 H (70-110) mg/dL Total Protein (6.3-8.2) g/dL Albumin (3.5-5.0) g/dL 04/15/23 04/15/23 04/15/23 Range/Units 20:02 21:04 22:02 RBC (4.30-5.90) m/uL Hgb (13.0-17.5) gm/dL Hct (39.0-53.0) % Sodium (137-145) mmol/L Carbon Dioxide (22-30) mmol/L Glucose (74-99) mg/dL POC Glucose (mg/dL) 155 H 130 H 121 H (70-110) mg/dL Total Protein (6.3-8.2) g/dL Albumin (3.5-5.0) g/dL 04/15/23 04/16/23 04/16/23 Range/Units 23:02 02:01 03:02 RBC (4.30-5.90) m/uL Hgb (13.0-17.5) gm/dL Hct (39.0-53.0) % Sodium (137-145) mmol/L Carbon Dioxide (22-30) mmol/L Glucose (74-99) mg/dL POC Glucose (mg/dL) 120 H 120 H 124 H (70-110) mg/dL Total Protein (6.3-8.2) g/dL Albumin (3.5-5.0) g/dL 04/16/23 04/16/23 04/16/23 Range/Units 03:56 03:56 03:56 RBC 3.23 L (4.30-5.90) m/uL Hgb 10.1 L (13.0-17.5) gm/dL Hct 28.7 L (39.0-53.0) % Sodium 131 L (137-145) mmol/L Carbon Dioxide 21 L (22-30) mmol/L Glucose 119 H (74-99) mg/dL POC Glucose (mg/dL) 128 H (70-110) mg/dL Total Protein 5.1 L (6.3-8.2) g/dL Albumin 3.2 L (3.5-5.0) g/dL 10/04/16/23 04/16/23 Range/Units 04:59 06:18 07:10 RBC (4.30-5.90) m/uL Hgb (13.0-17.5) gm/dL Hct (39.0-53.0) % Sodium (137-145) mmol/L Carbon Dioxide (22-30) mmol/L Glucose (74-99) mg/dL POC Glucose (mg/dL) 119 H 121 H 126 H (70-110) mg/dL Total Protein (6.3-8.2) g/dL Albumin (3.5-5.0) g/dL 04/16/23 04/16/23 Range/Units 08:28 12:03 RBC (4.30-5.90) m/uL Hgb (13.0-17.5) gm/dL Hct (39.0-53.0) % Sodium (137-145) mmol/L Carbon Dioxide (22-30) mmol/L Glucose (74-99) mg/dL POC Glucose (mg/dL) 181 H 136 H (70-110) mg/dL Total Protein (6.3-8.2) g/dL Albumin (3.5-5.0) g/dL Assessment and Plan Assessment: Coronary artery disease status post coronary artery bypass grafting with a PUCKETT to the LAD, sequential left radial artery graft to the first and second obtuse marginal branches of the circumflex artery, saphenous vein graft to the RCA and left atrial appendage clipping. Post operative day #2 Diabetes mellitus, type II Hyperlipidemia Hypertension History of diverticulitis with subsequent bowel for aeration with colostomy placement and subsequent reversal Lifelong nonsmoker Plan: The patient was seen and evaluated Chest x-ray, labs and medications reviewed Currently on 2 L nasal cannula Titrate the FiO2 as tolerated Encourage the increased use of the incentive spirometer Remains on bronchodilators Heparin for DVT prophylaxis We will continue to follow I have personally seen and examined the patient, performed the documentation and the assessment and plan as written. Number of minutes spent on the visit: 10.
--- NOTE | 2023-04-16 14:28 | P.PN ---
Subjective Progress Note Date: 04/16/23 Principal diagnosis: Multivessel coronary artery disease. Past medical history significant for hypertension, hyperlipidemia, diabetes mellitus type 2, family history of early onset coronary artery disease with his brother having a CABG 4 in his late 40s or early 50s, GERD, diverticulosis with previous bowel perforation requiring colostomy and subsequent reversal, and the patient is a lifetime nonsmoker. POD #2 Off pump CABG 4 with PUCKETT to LAD, sequential left radial artery graft to first and second obtuse marginal branches of the circumflex coronary artery, saphenous vein graft to the right coronary artery with endovascular vein harvest from the left greater saphenous vein, endovascular harvest of the left radial artery, occlusion of the left atrial appendage with 35 mm AtriCure clamp, intra- operative graft velocity assessment. Postoperative acute blood loss anemia, expected given hemodilution. The patient was seen and examined in follow-up today 04/16/2023 at his bedside in the intensive care unit. He is currently sitting up to bedside chair, is awake, alert, oriented 3 and is in no acute apparent distress. He denies any complaints of shortness of breath at this time, although is complaining of when taking a deep breath he is having pain to his right upper shoulder. Oxygen saturation are 93% on 2 L nasal cannula and he is achieving 9020-9808 mL on his incentive spirometry with encouragement. Bedside telemetry showing normal sinus rhythm heart rate 98 BPM. Left and right pleural chest tubes remain in place to low continuous wall suction -20 cm H2O. No air leak is present. Draining thin serosanguineous drainage. Left pleural chest tube drained 30 mL output in the last 8 hours and 140 mL output in the last 24 hours. Right pleural chest tube drained 25 mL output in the last 8 hours and 55 mL output in the last 24 hours. Cross catheter remains in place with adequate urine output 1250 mL output in the last 8 hours. He remains hemodynamically stable and is currently on no inotropic pressor support. Chest x-ray and laboratory results reviewed. The patient has been up ambulating in [facility] standby assistance from nursing and therapy staff and tolerating well. Objective - Vital Signs Vital signs: Vital Signs Temp 98.4 F 04/16/23 12:00 Pulse 101 H 04/16/23 13:00 Resp 18 04/16/23 11:00 BP 116/64 04/16/23 13:00 Pulse Ox 93 L 04/16/23 13:00 FiO2 50 04/14/23 16:01 Intake & Output 04/15/23 04/16/23 04/16/23 18:59 06:59 18:59 Intake Total 1299.865 601.688 581.485 Output Total 445 1907 3505 Balance 854.865 -1305.312 -2923.515 Weight 79.9 kg 82.5 kg Intake: IV 575 332 98 Lactated Ringers 1,000 ml 500 260 80 @ 20 mls/hr IV .Q24H [facility] Rx#:[id number] Pressure Bags 75 72 18 Intake, IV Titration 524.865 19.688 3.485 Amount Albumin Human 5% 250 ml 500 In Empty Bag 1 bag @ 250 mls/hr IVPB Q1HR PRN Rx#: [id number] Clevidipine Butyrate 25 3.2 mg In Empty Bag 1 bag @ 1 MG/HR 2 mls/hr IV .Q24H [facility] Rx#:[id number] Insulin Regular 100 unit 21.665 19.688 3.485 In Sodium Chloride 0.9% 100 ml @ Per Protocol IV .Q0M [facility] Rx#:[id number] Oral 200 480 Tube Feeding 250 Output: Chest Tube Drainage 195 102 0 1 MS 60 2 L/R Pl 60 Pleural Catheter Left 50 53 0 Pleural Catheter Right 25 49 0 Drainage 40 0 L. arm KRYSTAL 40 0 Urine 250 1765 3505 Other: Voiding Method Indwelling Catheter Indwelling Catheter Indwelling Catheter ABP, PAP, CO, CI - Last Documented Arterial Blood Pressure 122/59 Pulmonary Artery Pressure 23/10 Cardiac Output 6.7 Cardiac Index 3.5 - Exam CONSTITUTIONAL: Sitting up to the bedside chair in the intensive care unit, appears comfortable, cooperative, no apparent acute distress. HEENT: Neck is supple, no JVD, no lymphadenopathy. Right IJ Cordis in place and functioning. RESPIRATORY: Lungs sounds essentially clear throughout, diminished to his bilateral bases. Respirations are symmetrical and nonlabored. Currently on 2 L nasal cannula with oxygen saturations 93%. Able to achieve 1011-7862 mL on their incentive spirometry. Strong cough. CARDIOVASCULAR: Regular rhythm and rate. S1 and S2 present, negative for S3, gallop or murmur. Sternum is stable. Palpable peripheral pulses bilaterally, no edema to his bilateral lower extremities. No calf pain or tenderness noted. Heart hugger in place with patient demonstrating appropriate use. Knee-high ROBERTH hose and sequential compression devices in place to his bilateral lower extremities. GASTROINTESTINAL: Abdomen soft, nontender, nondistended. Active bowel sounds present 4 quadrants. Tolerating diet. Passing flatus. No guarding or rigidity. GENITOURINARY: Cross present draining clear, yellow urine. Urine output 1250 mL in the last 8 hours. INTEGUMENTARY: Skin is warm and dry with no evidence of clubbing or cyanosis. Midline sternal incision clean dry and well approximated, covered with dry intact dressing. Left lower extremity EVH sites well approximated without redness or drainage. Left arm radial artery harvest sites clean, dry and approximated. No drainage or redness is present. Small amount of ecchymosis to his left upper arm. Soft and nontender to touch. NEUROLOGIC: Cranial nerves II through XII intact. No focal deficits. MUSKULOSKELETAL: Able to move all extremities, strength equal bilaterally. PSYCHIATRIC: Alert and oriented to person place and time, appropriate affect, intact judgment and insight. INVASIVE LINES AND TUBES: Left/right pleural chest tubes present and connected to low continuous wall suction, no air leaks present. Left pleural tube with 30 mL of thin serosanguineous drainage overnight, 140 mL output in the last 24 hours. Right pleural chest tube with 25 mL of thin serosanguineous drainage overnight, 55 mL output in the last 24 hours. Right internal jugular Cordis, ri ght radial arterial line present. Last CVP 3 mmHg. Left arm KRYSTAL drain in place with scant thin serosanguineous drainage, 20 mL output in the last 8 hours. - Allied health notes Allied health notes reviewed: nursing - Labs CBC & Chem 7: 04/16/23 03:56 04/16/23 03:56 Labs: Abnormal Lab Results - Last 24 Hours (Table) 04/15/23 04/15/23 04/15/23 Range/Units 14:50 16:28 18:19 RBC (4.30-5.90) m/uL Hgb (13.0-17.5) gm/dL Hct (39.0-53.0) % Sodium (137-145) mmol/L Carbon Dioxide (22-30) mmol/L Glucose (74-99) mg/dL POC Glucose (mg/dL) 140 H 166 H 212 H (70-110) mg/dL Total Protein (6.3-8.2) g/dL Albumin (3.5-5.0) g/dL 04/15/23 04/15/23 04/15/23 Range/Units 20:02 21:04 22:02 RBC (4.30-5.90) m/uL Hgb (13.0-17.5) gm/dL Hct (39.0-53.0) % Sodium (137-145) mmol/L Carbon Dioxide (22-30) mmol/L Glucose (74-99) mg/dL POC Glucose (mg/dL) 155 H 130 H 121 H (70-110) mg/dL Total Protein (6.3-8.2) g/dL Albumin (3.5-5.0) g/dL 04/15/23 04/16/23 04/16/23 Range/Units 23:02 02:01 03:02 RBC (4.30-5.90) m/uL Hgb (13.0-17.5) gm/dL Hct (39.0-53.0) % Sodium (137-145) mmol/L Carbon Dioxide (22-30) mmol/L Glucose (74-99) mg/dL POC Glucose (mg/dL) 120 H 120 H 124 H (70-110) mg/dL Total Protein (6.3-8.2) g/dL Albumin (3.5-5.0) g/dL 04/16/23 04/16/23 04/16/23 Range/Units 03:56 03:56 03:56 RBC 3.23 L (4.30-5.90) m/uL Hgb 10.1 L (13.0-17.5) gm/dL Hct 28.7 L (39.0-53.0) % Sodium 131 L (137-145) mmol/L Carbon Dioxide 21 L (22-30) mmol/L Glucose 119 H (74-99) mg/dL POC Glucose (mg/dL) 128 H (70-110) mg/dL Total Protein 5.1 L (6.3-8.2) g/dL Albumin 3.2 L (3.5-5.0) g/dL 1004/16/23 04/16/23 Range/Units 04:59 06:18 07:10 RBC (4.30-5.90) m/uL Hgb (13.0-17.5) gm/dL Hct (39.0-53.0) % Sodium (137-145) mmol/L Carbon Dioxide (22-30) mmol/L Glucose (74-99) mg/dL POC Glucose (mg/dL) 119 H 121 H 126 H (70-110) mg/dL Total Protein (6.3-8.2) g/dL Albumin (3.5-5.0) g/dL 04/16/23 04/16/23 Range/Units 08:28 12:03 RBC (4.30-5.90) m/uL Hgb (13.0-17.5) gm/dL Hct (39.0-53.0) % Sodium (137-145) mmol/L Carbon Dioxide (22-30) mmol/L Glucose (74-99) mg/dL POC Glucose (mg/dL) 181 H 136 H (70-110) mg/dL Total Protein (6.3-8.2) g/dL Albumin (3.5-5.0) g/dL - Imaging and Cardiology Chest x-ray: report reviewed, image reviewed Assessment and Plan Assessment: Multivessel coronary artery disease, status post off-pump CABG 4 Hypertension Hyperlipidemia GERD Lifetime nonsmoker History of diverticulitis, status post bowel perforation, with colostomy and subsequent reversal History of skin cancer, basal and squamous cell Family history of early onset coronary artery disease with his brother having CABG 4 in his late 40s to early 50s Postoperative acute blood loss anemia, expected given hemodilution Plan: Continue to maximize medical therapy with aspirin, statin, and Plavix. Increase metoprolol tartrate to 50 mg by mouth twice a day with hold parameters. Continue Norvasc 5 mg by mouth daily for radial artery spasm prophylaxis. Wean oxygen as tolerated. Encourage incentive spirometry 10 times every hour while awake. Bronchodilators per pulmonology. We will monitor daily labs and chest x-rays. Electrolyte replacement per protocol. Increase activity, ambulate as tolerated. PT/OT/cardiac rehab following. GI/DVT prophylaxis. Pain control with current medication regimen. Insulin management per internal medicine. Preoperative hemoglobin A1c was 8.3%. Remove right IJ Cordis. Remove left/right pleural chest tubes. Remove Cross catheter. Continue to record strict accurate I's and O's. Bladder scan every 6 hours and when necessary postvoid residual, if greater than 300 mL of urine may straight cath. Lasix 40 mg IV 1 now with potassium chloride milliequivalents by mouth 1 now. Remove left arm KRYSTAL drain. Transfer orders to the third floor cardiac stepdown unit placed. Transfer when bed available. More recommendations to follow based on patient's clinical course. Time with Patient: Greater than 30
[2023-04-16 17:04] LABS: Glucose,Whole Blood 177 mg/dL (70-110)
[2023-04-16 21:07] LABS: Glucose,Whole Blood 195 mg/dL (70-110)
[2023-04-16] MEDS: SENNOSIDES-DOCUSATE SODIUM 1 EACH TAB PO SCH (21:19)
[2023-04-17 05:22] LABS: Basophils % (A) 0 %; Eosinophils # (A) 0.1 k/uL (0-0.7); Eosinophils % (A) 2 %; HCT 29.3 % (39.0-53.0); HGB 9.9 gm/dL (13.0-17.5); Lymphocytes # (A) 0.8 k/uL (1.0-4.8); Lymphocytes % (A) 12 %; MCH 30.3 pg (25.0-35.0); MCHC 33.7 g/dL (31.0-37.0); MCV 89.7 fL (80.0-100.0); Monocytes # (A) 0.4 k/uL (0-1.0); Monocytes % (A) 5 %; Neutrophils # (A) 5.8 k/uL (1.3-7.7); Neutrophils % (A) 80 %; Platelet Count 201 k/uL (150-450); RBC 3.26 m/uL (4.30-5.90); RDW 13.6 % (11.5-15.5); WBC 7.3 k/uL (3.8-10.6)
[2023-04-17 05:43] LABS: ALT 11 U/L (4-49); AST 20 U/L (17-59); African American GFR (CKD) >90 (>60 ml/min/1.73 sqM); Albumin 3.2 g/dL (3.5-5.0); Alkaline Phosphatase 50 U/L (38-126); Blood Urea Nitrogen 18 mg/dL (9-20); Calcium 8.8 mg/dL (8.4-10.2); Carbon Dioxide 24 mmol/L (22-30); Chloride 102 mmol/L (98-107); Glucose 122 mg/dL (74-99); Non-African American GFR(CKD) 89 (>60 ml/min/1.73 sqM); Total Bilirubin 0.8 mg/dL (0.2-1.3); Total Protein 5.3 g/dL (6.3-8.2)
[2023-04-17 06:44] LABS: Glucose,Whole Blood 147 mg/dL (70-110)
[2023-04-17] MEDS: KETOROLAC 15 MG/ML 1 ML VIAL IVP SCH ×3 (06:52→16:51)
[2023-04-17] MEDS: INSULIN DETEMIR (LEVEMIR) 100 UNIT/ML SYR SQ SCH (06:52)
[2023-04-17] MEDS: PANTOPRAZOLE 40 MG TABLET PO SCH (06:52)
[2023-04-17] MEDS: INSULIN ASPART (NovoLOG) 100 UNIT/ML VIAL SQ SCH ×3 (06:53→16:51)
[2023-04-17 07:08] LABS: Anion Gap 10 mmol/L; Potassium 4.2 mmol/L (3.5-5.1); Sodium 136 mmol/L (137-145)
[2023-04-17] MEDS: METOPROLOL TARTRATE 25 MG TAB PO SCH ×2 (08:09→20:49)
[2023-04-17] MEDS: ASPIRIN 325 MG TAB PO SCH (08:09)
[2023-04-17] MEDS: CLOPIDOGREL 75 MG TAB PO SCH (08:09)
[2023-04-17] MEDS: HEPARIN SODIUM,PORCINE 5,000 UNIT/ML 1 ML VIAL SQ SCH ×2 (08:09→16:51)
[2023-04-17] MEDS: ATORVASTATIN 40 MG TAB PO SCH (08:09)
[2023-04-17] MEDS: amLODIPine 5 MG TAB PO SCH (08:09)
[2023-04-17] MEDS: IPRATROPIUM-ALBUTEROL 3 ML NEB INHALATION SCH ×4 (08:29→20:04)
[2023-04-17 11:29] LABS: Glucose,Whole Blood 153 mg/dL (70-110)
--- NOTE | 2023-04-17 11:47 | P.PN ---
Subjective Progress Note Date: 04/17/23 Principal diagnosis: Multivessel coronary artery disease. Past medical history significant for hypertension, hyperlipidemia, diabetes mellitus type 2, family history of early onset coronary artery disease with his brother having a CABG 4 in his late 40s or early 50s, GERD, diverticulosis with previous bowel perforation requiring colostomy and subsequent reversal, and the patient is a lifetime nonsmoker. POD #3 Off pump CABG 4 with PUCKETT to LAD, sequential left radial artery graft to first and second obtuse marginal branches of the circumflex coronary artery, saphenous vein graft to the right coronary artery with endovascular vein harvest from the left greater saphenous vein, endovascular harvest of the left radial artery, occlusion of the left atrial appendage with 35 mm AtriCure clamp, intra- operative graft velocity assessment. Postoperative acute blood loss anemia, expected given hemodilution. The patient was seen and examined in follow-up today 04/17/2023 at his bedside in the intensive care unit. He is sitting up to the bedside chair, awake, alert, oriented 3 and is in no acute apparent distress. Oxygen saturation are 93% on room air and he is achieving 1750 mL on his incentive spirometry. He denies any complaints of pain or shortness of breath at this time. He has been tolerating walking in the intensive care unit hallway with standby assistance from nursing and therapy staff. Bedside telemetry showing normal sinus rhythm heart rate 98 BPM. He remained hemodynamically stable and is currently on no inotropic or pressor support. Chest tubes were removed yesterday without incident. Chest x-ray and laboratory results reviewed. Objective - Vital Signs Vital signs: Vital Signs Temp 97.8 F 04/17/23 08:00 Pulse 77 04/17/23 11:00 Resp 12 04/17/23 11:00 BP 115/77 04/17/23 11:00 Pulse Ox 91 L 04/17/23 11:00 FiO2 50 04/14/23 16:01 Intake & Output 04/16/23 04/17/23 04/17/23 18:59 06:59 18:59 Intake Total 1061.485 720 Output Total 4140 850 Balance -3078.515 -130 Weight 80 kg Intake: IV 98 Lactated Ringers 1,000 ml 80 @ 20 mls/hr IV .Q24H [facility] Rx#:[id number] Pressure Bags 18 Intake, IV Titration 3.485 Amount Insulin Regular 100 unit 3.485 In Sodium Chloride 0.9% 100 ml @ Per Protocol IV .Q0M [facility] Rx#:[id number] Oral 960 720 Output: Chest Tube Drainage 0 Pleural Catheter Left 0 Pleural Catheter Right 0 Drainage 0 L. arm KRYSTAL 0 Urine 4140 850 Other: Voiding Method Indwelling Catheter Urinal Urinal ABP, PAP, CO, CI - Last Documented Arterial Blood Pressure 122/59 Pulmonary Artery Pressure 23/10 Cardiac Output 6.7 Cardiac Index 3.5 - Exam CONSTITUTIONAL: Sitting up to the bedside chair in the intensive care unit, appears comfortable, cooperative, no apparent acute distress. HEENT: Neck is supple, no JVD, no lymphadenopathy. RESPIRATORY: Lungs sounds essentially clear throughout, diminished to his bi lateral bases. Respirations are symmetrical and nonlabored. Currently on room air with oxygen saturations 93%. Able to achieve 1750 mL on their incentive spirometry. Strong cough. CARDIOVASCULAR: Regular rhythm and rate. S1 and S2 present, negative for S3, gallop or murmur. Sternum is stable. Palpable peripheral pulses bilaterally, no edema to his bilateral lower extremities. No calf pain or tenderness noted. Heart hugger in place with patient demonstrating appropriate use. Knee-high ROBERTH hose and sequential compression devices in place to his bilateral lower extremities. GASTROINTESTINAL: Abdomen soft, nontender, nondistended. Active bowel sounds present 4 quadrants. Tolerating diet. Passing flatus. No guarding or rigidity. GENITOURINARY: Continues to void. Urine output 650 mL in the last 8 hours. INTEGUMENTARY: Skin is warm and dry with no evidence of clubbing or cyanosis. Midline sternal incision clean dry and well approximated, covered with dry intact dressing. Left lower extremity EVH sites well approximated without redness or drainage. Left arm radial artery harvest sites clean, dry and approximated. No drainage or redness is present. Small amount of ecchymosis to his left upper arm. Soft and nontender to touch. NEUROLOGIC: Cranial nerves II through XII intact. No focal deficits. MUSKULOSKELETAL: Able to move all extremities, strength equal bilaterally. PSYCHIATRIC: Alert and oriented to person place and time, appropriate affect, intact judgment and insight. - Allied health notes Allied health notes reviewed: nursing - Labs CBC & Chem 7: 04/17/23 04:34 04/17/23 04:34 Labs: Abnormal Lab Results - Last 24 Hours (Table) 10/20/23 10/20/23 10/20/23 Range/Units 12:03 17:03 21:05 RBC (4.30-5.90) m/uL Hgb (13.0-17.5) gm/dL Hct (39.0-53.0) % Lymphocytes # (1.0-4.8) k/uL Sodium (137-145) mmol/L Glucose (74-99) mg/dL POC Glucose (mg/dL) 136 H 177 H 195 H (70-110) mg/dL Total Protein (6.3-8.2) g/dL Albumin (3.5-5.0) g/dL 04/17/23 04/17/23 04/17/23 Range/Units 04:34 04:34 06:42 RBC 3.26 L (4.30-5.90) m/uL Hgb 9.9 L (13.0-17.5) gm/dL Hct 29.3 L (39.0-53.0) % Lymphocytes # 0.8 L (1.0-4.8) k/uL Sodium 136 L (137-145) mmol/L Glucose 122 H (74-99) mg/dL POC Glucose (mg/dL) 147 H (70-110) mg/dL Total Protein 5.3 L (6.3-8.2) g/dL Albumin 3.2 L (3.5-5.0) g/dL 04/17/23 Range/Units 11:26 RBC (4.30-5.90) m/uL Hgb (13.0-17.5) gm/dL Hct (39.0-53.0) % Lymphocytes # (1.0-4.8) k/uL Sodium (137-145) mmol/L Glucose (74-99) mg/dL POC Glucose (mg/dL) 153 H (70-110) mg/dL Total Protein (6.3-8.2) g/dL Albumin (3.5-5.0) g/dL - Imaging and Cardiology Chest x-ray: report reviewed, image reviewed Assessment and Plan Assessment: Multivessel coronary artery disease, status post off-pump CABG 4 Hypertension Hyperlipidemia GERD Lifetime nonsmoker History of diverticulitis, status post bowel perforation, with colostomy and subsequent reversal History of skin cancer, basal and squamous cell Family history of early onset coronary artery disease with his brother having CABG 4 in his late 40s to early 50s Postoperative acute blood loss anemia, expected given hemodilution Plan: Continue to maximize medical therapy with aspirin, statin, and Plavix. Increase metoprolol tartrate to 75 mg by mouth twice a day with hold parameters. Continue Norvasc 5 mg by mouth daily for radial artery spasm prophylaxis. Encourage incentive spirometry 10 times every hour while awake. Bronchodilators per pulmonology. We will monitor daily labs and chest x-rays. Electrolyte replacement per protocol. Increase activity, ambulate as tolerated. PT/OT/cardiac rehab following. GI/DVT prophylaxis. Pain control with current medication regimen. Insulin management per internal medicine. Preoperative hemoglobin A1c was 8.3%. Transfer orders to the third floor cardiac stepdown unit placed. Transfer when bed available. Apply gentle John wrap to his left arm. More recommendations to follow based on patient's clinical course. Time with Patient: Greater than 30
--- NOTE | 2023-04-17 11:51 | P.PN ---
Subjective Progress Note Date: 04/17/23 This is a pleasant 73-year-old male patient with a known history of IVs mellitus, type II, hyperlipidemia, hypertension, family history of early onset coronary artery disease. He had been having issues with heartburn and did undergo stress testing and subsequent cardiac catheterization. He was recommend ed coronary revascularization. He was brought in today electively. He did undergo off-pump coronary artery bypass grafting with a PUCKETT to the LAD, sequential left radial artery graft to the first and second obtuse marginal branches of the circumflex artery, saphenous vein graft to the RCA and left atrial appendage clipping. He is seen today in consultation in the intensive care unit. He was successfully extubated at 3-1/2 hours. He is currently awake and alert. He is in the 90s on 5 L/m per nasal cannula. He is on a insulin drip at 3.5 units per hour. Nitroglycerin drip at 5 mcg/m. Cardizem drip at 5 mg per hour. Lactated Ringer's at 50 MLS per hour. He has right left and mediastinal chest tubes in place. Pacer wires in place. Right IJ [place]-Fabian catheter in place. PA pressure 23/10. CVP of 4. Cardiac output 5.7. Cardiac index 3.0. He did receive albumin. Asked x-ray reveals limited inspiration with left lower lobe consolidation and small effusion. Tiny left apical p neumothorax measuring less than 5%. White count 14.9. Hemoglobin 11.8. Platelets 260. Sodium 138. Potassium 3.8. Bicarb 19. BUN 9013. Creatinine 0.69. Glucose 194. Ionized calcium 4.8. Magnesium 1.5. AST 16. ALT 11. Albumin 3.2. Arterial blood gases prior to extubation revealed a pO2 of 111, pCO2 38 and a pH of 7.31 on 50% FiO2. The patient is seen today 04/15/2023 in follow-up in the intensive care unit. He is currently sitting up in a chair. Awake and alert in no acute distress. Maintaining O2 saturations in the 90s on 2 L/m per nasal cannula. He's in sinus rhythm. He is on an insulin drip at 2.5 units per hour. Lactated Ringer's at 40 ML's per hour. Still has mediastinal, right and left pleural chest tubes in place. His x-ray reveals postoperative changes. No sizable pneumothorax. White count 10.4. Hemoglobin 10.8. Platelets 264. Sodium 133. Potassium 3.7. Bicarb 20. BUN 10. Creatinine 0.53. Glucose 110. He is continued on bronchodilators. Continues to work well with the incentive spirometer. The patient is seen today 04/16/2023 in follow-up in the intensive care unit. He is currently sitting up in a chair. Awake and alert in no acute distress. Postoperative day #2. He has insulin drip at 1 unit an hour. Lactated Ringer's at 40 miles per hour. He is maintaining good O2 saturations in the 90s on 2 L/m per nasal cannula. He has a left and right chest tube still in place. Interval development of a 10-15% right apical pneumothorax. Bilateral postoperative atelectasis. He continues to work well with the incentive spirometer. White count 7.4. Hemoglobin 10.1. Platelets 175. Sodium 131. Potassium 3.9. Bicarb 21. BUN 14. Creatinine 0.84. Glucose 136. He remains on bronchodilators. Heparin for DVT prophylaxis. The patient is seen today 04/17/2023 in follow-up in the intensive care unit. He is currently awake and alert in no acute distress. Postoperative day #3. He's been up ambulating in the hallway. He is maintaining good O2 saturations in the 90s on room air. No IV fluids. His x-ray reveals interval development of a 10-15% right apical pneumothorax. Bilateral postoperative atelectasis. White count 7.3. Hemoglobin 9.9. Platelets 201. Sodium 136. Potassium 4.2. BUN 18. Creatinine 0.82. Glucose 122. AST 20. ALT 11. He is continued on bronchodilators. Heparin for DVT prophylaxis. Objective - Vital Signs Vital signs: Vital Signs Temp 97.8 F 04/17/23 08:00 Pulse 77 04/17/23 11:00 Resp 12 04/17/23 11:00 BP 115/77 04/17/23 11:00 Pulse Ox 91 L 04/17/23 11:00 FiO2 50 04/14/23 16:01 Intake & Output 04/16/23 04/17/23 04/17/23 18:59 06:59 18:59 Intake Total 1061.485 720 Output Total 4140 850 Balance -3078.515 -130 Weight 80 kg Intake: IV 98 Lactated Ringers 1,000 ml 80 @ 20 mls/hr IV .Q24H [facility] Rx#:[id number] Pressure Bags 18 Intake, IV Titration 3.485 Amount Insulin Regular 100 unit 3.485 In Sodium Chloride 0.9% 100 ml @ Per Protocol IV .Q0M [facility] Rx#:[id number] Oral 960 720 Output: Chest Tube Drainage 0 Pleural Catheter Left 0 Pleural Catheter Right 0 Drainage 0 L. arm KRYSTAL 0 Urine 4140 850 Other: Voiding Method Indwelling Catheter Urinal Urinal ABP, PAP, CO, CI - Last Documented Arterial Blood Pressure 122/59 Pulmonary Artery Pressure 23/10 Cardiac Output 6.7 Cardiac Index 3.5 - Exam GENERAL EXAM: Alert, pleasant 73-year-old male, ambulating in the hallway, on room air, comfortable in no apparent distress. HEAD: Normocephalic. EYES: Normal reaction of pupils, equal size. NOSE: Clear with pink turbinates. THROAT: No erythema or exudates. NECK: Right IJ Cordis in place No masses, no JVD. CHEST: Sternal dressing dry and intact. Heart hugger in place. LUNGS: Equal air entry with crackles in the left lung base. CVS: S1 and S2 normal with no audible murmur, regular rhythm. ABDOMEN: No hepatosplenomegaly, hypoactive bowel sounds, no guarding or rigidity. SPINE: No scoliosis or deformity SKIN: No rashes CENTRAL NERVOUS SYSTEM: No focal deficits, tone is normal in all 4 extremities. EXTREMITIES: John wrap so bilateral lower extremities. Peripheral pulses are intact. - Labs CBC & Chem 7: 04/17/23 04:34 04/17/23 04:34 Labs: Abnormal Lab Results - Last 24 Hours (Table) 04/16/23 04/16/23 04/16/23 Range/Units 12:03 17:03 21:05 RBC (4.30-5.90) m/uL Hgb (13.0-17.5) gm/dL Hct (39.0-53.0) % Lymphocytes # (1.0-4.8) k/uL Sodium (137-145) mmol/L Glucose (74-99) mg/dL POC Glucose (mg/dL) 136 H 177 H 195 H (70-110) mg/dL Total Protein (6.3-8.2) g/dL Albumin (3.5-5.0) g/dL 04/17/23 04/17/23 04/17/23 Range/Units 04:34 04:34 06:42 RBC 3.26 L (4.30-5.90) m/uL Hgb 9.9 L (13.0-17.5) gm/dL Hct 29.3 L (39.0-53.0) % Lymphocytes # 0.8 L (1.0-4.8) k/uL Sodium 136 L (137-145) mmol/L Glucose 122 H (74-99) mg/dL POC Glucose (mg/dL) 147 H (70-110) mg/dL Total Protein 5.3 L (6.3-8.2) g/dL Albumin 3.2 L (3.5-5.0) g/dL 04/17/23 Range/Units 11:26 RBC (4.30-5.90) m/uL Hgb (13.0-17.5) gm/dL Hct (39.0-53.0) % Lymphocytes # (1.0-4.8) k/uL Sodium (137-145) mmol/L Glucose (74-99) mg/dL POC Glucose (mg/dL) 153 H (70-110) mg/dL Total Protein (6.3-8.2) g/dL Albumin (3.5-5.0) g/dL Assessment and Plan Assessment: Coronary artery disease status post coronary artery bypass grafting with a PUCKETT to the LAD, sequential left radial artery graft to the first and second obtuse marginal branches of the circumflex artery, saphenous vein graft to the RCA and left atrial appendage clipping. Post operative day #3 Diabetes mellitus, type II Hyperlipidemia Hypertension History of diverticulitis with subsequent bowel for aeration with colostomy placement and subsequent reversal Lifelong nonsmoker Plan: The patient was seen and evaluated Chest x-ray, labs and medications reviewed Currently stable and on room air Remains on bronchodilators Heparin for DVT prophylaxis We will continue to follow I have personally seen and examined the patient, performed the documentation and the assessment and plan as written. Number of minutes spent on the visit: 10.
--- NOTE | 2023-04-17 11:54 | XR ---
EXAMINATION TYPE: XR chest 2V DATE OF EXAM: 04/17/2023 6:25 AM CLINICAL INDICATION:Male, 73 years old with history of post op CABG; [facility] COMPARISON: 04/16/2023 TECHNIQUE: XR chest 2V Frontal and lateral views of the chest. FINDINGS: Lines/Tubes: EKG leads overlie the chest. No indwelling lines are seen. Previous bibasilar chest tubes appear to have been removed. Lungs/Pleura: Stable small right apical pneumothorax. Linear opacities in the left lung base most sug gestive of atelectasis. Possible trace pleural effusions. Pulmonary vascularity: Unremarkable. Heart/mediastinum: Stable cardiac mediastinal silhouette. Heart size upper normal. Sternotomy wires l ikely from CABG. Left atrial appendage clip. Musculoskeletal: Osseous structures appear grossly unchanged. Mild degenerative changes of the spine. Other findings: None IMPRESSION: 1. Stable small right apical pneumothorax. 2. Interval removal of bilateral chest tubes. 3. Left basilar linear atelectasis. Possible trace pleural effusions.
--- NOTE | 2023-04-17 11:57 | P.PN ---
Subjective Progress Note Date: 04/17/23 NO new copmlaints today. Ambulating well. Transitioning to floor today. Gen: awake, alert HEENT: normocephalic, atraumatic, good hearing acuity, moist mucous membranes Resp: good air exchange, breathing comfortably with no accessory muscle use CVS: Normal S1 and S2 GI: soft, NTTP, ND : no SPT, no CVAT MSK: no pitting edema, no clubbing Neuro: non-focal, moving all extremities Psych: cooperative, euthymic mood Data review today: Hemoglobin 9.9, sodium 136, creatinine 0.82, blood sugars ranging between 120- 195 Assessment/plan: CAD status post CABG Hypertension Hyperlipidemia Diabetes type 2 Acute blood loss anemia, anticipated outcome of surgery Plan: -Continue Levemir 15 units, sliding scale insulin -For CAD, patient is on aspirin 325 mg daily, atorvastatin 400 mg daily, metoprolol 75 mg twice a day, Plavix 75 mg daily -Cardiothoracic surgery note reviewed, metoprolol increased -Pulmonology note reviewed, continue current management -Pending transfers to the floors Objective - Vital Signs Vital signs: Vital Signs Temp 97.8 F 04/17/23 08:00 Pulse 77 04/17/23 11:00 Resp 12 04/17/23 11:00 BP 115/77 04/17/23 11:00 Pulse Ox 91 L 04/17/23 11:00 FiO2 50 04/14/23 16:01 Intake & Output 04/16/23 04/17/23 04/17/23 18:59 06:59 18:59 Intake Total 1061.485 720 Output Total 4140 850 Balance -3078.515 -130 Weight 80 kg Intake: IV 98 Lactated Ringers 1,000 ml 80 @ 20 mls/hr IV .Q24H [facility] Rx#:[id number] Pressure Bags 18 Intake, IV Titration 3.485 Amount Insulin Regular 100 unit 3.485 In Sodium Chloride 0.9% 100 ml @ Per Protocol IV .Q0M [facility] Rx#:[id number] Oral 960 720 Output: Chest Tube Drainage 0 Pleural Catheter Left 0 Pleural Catheter Right 0 Drainage 0 L. arm KRYSTAL 0 Urine 4140 850 Other: Voiding Method Indwelling Catheter Urinal Urinal ABP, PAP, CO, CI - Last Documented Arterial Blood Pressure 122/59 Pulmonary Artery Pressure 23/10 Cardiac Output 6.7 Cardiac Index 3.5 - Labs CBC & Chem 7: 04/17/23 04:34 04/17/23 04:34 Labs: Abnormal Lab Results - Last 24 Hours (Table) 04/16/23 04/16/23 04/16/23 Range/Units 12:03 17:03 21:05 RBC (4.30-5.90) m/uL Hgb (13.0-17.5) gm/dL Hct (39.0-53.0) % Lymphocytes # (1.0-4.8) k/uL Sodium (137-145) mmol/L Glucose (74-99) mg/dL POC Glucose (mg/dL) 136 H 177 H 195 H (70-110) mg/dL Total Protein (6.3-8.2) g/dL Albumin (3.5-5.0) g/dL 04/17/23 04/17/23 04/17/23 Range/Units 04:34 04:34 06:42 RBC 3.26 L (4.30-5.90) m/uL Hgb 9.9 L (13.0-17.5) gm/dL Hct 29.3 L (39.0-53.0) % Lymphocytes # 0.8 L (1.0-4.8) k/uL Sodium 136 L (137-145) mmol/L Glucose 122 H (74-99) mg/dL POC Glucose (mg/dL) 147 H (70-110) mg/dL Total Protein 5.3 L (6.3-8.2) g/dL Albumin 3.2 L (3.5-5.0) g/dL 04/17/23 Range/Units 11:26 RBC (4.30-5.90) m/uL Hgb (13.0-17.5) gm/dL Hct (39.0-53.0) % Lymphocytes # (1.0-4.8) k/uL Sodium (137-145) mmol/L Glucose (74-99) mg/dL POC Glucose (mg/dL) 153 H (70-110) mg/dL Total Protein (6.3-8.2) g/dL Albumin (3.5-5.0) g/dL
--- NOTE | 2023-04-17 14:20 | P.PN ---
Subjective Progress Note Date: 04/17/23 PROGRESS NOTE The patient is a 73-year-old male with a family history of premature CAD, hypertension, diabetes and hyperlipidemia, followed by Dr. Sidhu who presented earlier this month with symptoms of chest discomfort and had a significantly abnormal stress test. He subsequently underwent cardiac catheterization on April 01 and was found to have significant obstructive disease involving the RCA, LAD and left circumflex. He was admitted today electively and underwent coronary artery bypass grafting. He received a PUCKETT to LAD and left radial to the first and second obtuse marginal branch and SVG to the RCA with closure of the left atrial appendage. He is intubated, starting to wake up. In sinus mechanism and hemodynamically stable. He has no history of CHF or significant valvular disease. There is no history of atrial fibrillation. April 15: The patient is extubated, sitting up in the chair. He is in sinus mechanism. He denies any significant dyspnea. He has soreness in the chest. He denies any nausea or vomiting. Hemodynamically he is stable on no vasopressors. His urinary output is been stable. April 16: The patient is feeling well this morning, he continues to be in sinus mechanism. He has mild soreness in the chest. He is on no vasopressors. He denies any dizziness or palpitations. He denies any nausea or vomiting. He continues to have the chest tube. He is ambulating. 04/17/23 Patient is doing well from cardiac vessel standpoint. He is tolerating oral diet, no evidence of atrial fibrillation on telemetry Lab shows hemoglobin 9.9, platelets 201, sodium 136, creatinine 0.8 Vitals 135/80, heart rate 85 beats a minute. Saturating well on room air PHYSICAL EXAMINATION: LUNGS: Clear to auscultation HEART: Regular rate and rhythm, S1, S2. No S3. Systolic ejection murmur, rub noted ABDOMEN: Soft, nontender, no organomegaly EXTREMETIES: No edema IMPRESSION: 1. Status post CABG, stable 2. History of hypertension 3. History of hyperlipidemia 4. History of diabetes PLAN: 1. Continue present therapy Aspirin, Lasix 75 mg daily, Norvasc 5 mg daily, metoprolol 50 mg twice a day, Lipitor 40 mg daily, Plavix 75 mg daily 2. Incentive spirometry 3. Increase physical activity 4. Depending on the progress further recommendations will be made Objective - Vital Signs Vital signs: Vital Signs Temp 98.2 F 04/17/23 12:00 Pulse 86 04/17/23 12:49 Resp 18 04/17/23 12:00 BP 128/78 04/17/23 12:00 Pulse Ox 93 L 04/17/23 12:00 FiO2 50 04/14/23 16:01 Intake & Output 04/16/23 04/17/23 04/17/23 18:59 06:59 18:59 Intake Total 1061.485 720 Output Total 4140 850 480 Balance -3078.515 -130 -480 Weight 80 kg Intake: IV 98 Lactated Ringers 1,000 ml 80 @ 20 mls/hr IV .Q24H [facility] Rx#:[id number] Pressure Bags 18 Intake, IV Titration 3.485 Amount Insulin Regular 100 unit 3.485 In Sodium Chloride 0.9% 100 ml @ Per Protocol IV .Q0M [facility] Rx#:[id number] Oral 960 720 Output: Chest Tube Drainage 0 Pleural Catheter Left 0 Pleural Catheter Right 0 Drainage 0 L. arm KRYSTAL 0 Urine 4140 850 480 Other: Voiding Method Indwelling Catheter Urinal Urinal ABP, PAP, CO, CI - Last Documented Arterial Blood Pressure 122/59 Pulmonary Artery Pressure 23/10 Cardiac Output 6.7 Cardiac Index 3.5 - Labs CBC & Chem 7: 04/17/23 04:34 04/17/23 04:34 Labs: Abnormal Lab Results - Last 24 Hours (Table) 04/16/23 04/16/23 04/17/23 Range/Units 17:03 21:05 04:34 RBC 3.26 L (4.30-5.90) m/uL Hgb 9.9 L (13.0-17.5) gm/dL Hct 29.3 L (39.0-53.0) % Lymphocytes # 0.8 L (1.0-4.8) k/uL Sodium (137-145) mmol/L Glucose (74-99) mg/dL POC Glucose (mg/dL) 177 H 195 H (70-110) mg/dL Total Protein (6.3-8.2) g/dL Albumin (3.5-5.0) g/dL 04/17/23 04/17/23 04/17/23 Range/Units 04:34 06:42 11:26 RBC (4.30-5.90) m/uL Hgb (13.0-17.5) gm/dL Hct (39.0-53.0) % Lymphocytes # (1.0-4.8) k/uL Sodium 136 L (137-145) mmol/L Glucose 122 H (74-99) mg/dL POC Glucose (mg/dL) 147 H 153 H (70-110) mg/dL Total Protein 5.3 L (6.3-8.2) g/dL Albumin 3.2 L (3.5-5.0) g/dL
[2023-04-17 16:27] LABS: Glucose,Whole Blood 197 mg/dL (70-110)
[2023-04-17 20:47] LABS: Glucose,Whole Blood 128 mg/dL (70-110)
[2023-04-17] MEDS: SENNOSIDES-DOCUSATE SODIUM 1 EACH TAB PO SCH (20:48)
[2023-04-18] MEDS: HEPARIN SODIUM,PORCINE 5,000 UNIT/ML 1 ML VIAL SQ SCH ×4 (00:39→23:20)
[2023-04-18] MEDS: KETOROLAC 15 MG/ML 1 ML VIAL IVP SCH ×5 (00:39→23:19)
[2023-04-18 05:45] LABS: HCT 28.3 % (39.0-53.0); HGB 9.5 gm/dL (13.0-17.5); MCH 30.3 pg (25.0-35.0); MCHC 33.6 g/dL (31.0-37.0); MCV 90.2 fL (80.0-100.0); Mean Platelet Volume 7.8; Platelet Count 243 k/uL (150-450); RBC 3.13 m/uL (4.30-5.90); RDW 13.4 % (11.5-15.5); WBC 6.2 k/uL (3.8-10.6)
[2023-04-18 05:57] LABS: African American GFR (CKD) >90 (>60 ml/min/1.73 sqM); Anion Gap 9 mmol/L; Blood Urea Nitrogen 20 mg/dL (9-20); Calcium 8.7 mg/dL (8.4-10.2); Carbon Dioxide 24 mmol/L (22-30); Chloride 104 mmol/L (98-107); Glucose 129 mg/dL (74-99); Non-African American GFR(CKD) 89 (>60 ml/min/1.73 sqM); Potassium 4.1 mmol/L (3.5-5.1); Sodium 137 mmol/L (137-145)
[2023-04-18 06:39] LABS: Glucose,Whole Blood 142 mg/dL (70-110)
[2023-04-18] MEDS: PANTOPRAZOLE 40 MG TABLET PO SCH (06:43)
[2023-04-18] MEDS: INSULIN ASPART (NovoLOG) 100 UNIT/ML VIAL SQ SCH ×3 (06:46→17:03)
[2023-04-18] MEDS: INSULIN DETEMIR (LEVEMIR) 100 UNIT/ML SYR SQ SCH (06:47)
[2023-04-18] MEDS: METOPROLOL TARTRATE 50 MG TAB PO SCH ×2 (07:55→20:43)
[2023-04-18] MEDS: CLOPIDOGREL 75 MG TAB PO SCH (07:55)
[2023-04-18] MEDS: amLODIPine 10 MG TAB PO SCH (07:55)
[2023-04-18] MEDS: ASPIRIN 325 MG TAB PO SCH (07:55)
[2023-04-18] MEDS: ATORVASTATIN 40 MG TAB PO SCH (07:55)
[2023-04-18] MEDS: IPRATROPIUM-ALBUTEROL 3 ML NEB INHALATION SCH ×4 (07:59→19:40)
--- NOTE | 2023-04-18 08:48 | XR ---
EXAM: XR chest 1V portable CLINICAL INDICATION:Male, 73 years old with history of Postop CABG; [facility] COMPARISON: 04/17/2023 and before TECHNIQUE: Chest single view. FINDINGS: Lines/tubes/devices: EKG leads overlie the chest. No indwelling lines are seen. Cardiomediastinum: Cardiac silhouette appears stable, heart size upper normal. Stable mediastinal silhouette. Post CABG changes and left atrial occlusion device. Vasculature: No increased pulmonary vasculature. Lungs/pleura: Stable small right apical pneumothorax. Stable linear opacities in the left lung base and possible tr berenice pleural effusions. Bones/soft tissues: Bony thorax appears grossly unchanged as seen. Degenerative changes of the shoulders and spine. Regio nal soft tissues show no acute normality. Redemonstration of mild asymmetric elevation left hemidiaph ragm. IMPRESSION: 1. Stable small right apical pneumothorax. 2. Similar appearance of left basilar atelectasis and possible trace pleural effusions.
--- NOTE | 2023-04-18 10:05 | P.PN ---
Subjective Progress Note Date: 04/18/23 Principal diagnosis: Multivessel coronary artery disease. Past medical history significant for hypertension, hyperlipidemia, diabetes mellitus type 2, family history of early onset coronary artery disease with his brother having a CABG 4 in his late 40s or early 50s, GERD, diverticulosis with previous bowel perforation requiring colostomy and subsequent reversal, and the patient is a lifetime nonsmoker. POD #4 Off pump CABG 4 with PUCKETT to LAD, sequential left radial artery graft to first and second obtuse marginal branches of the circumflex coronary artery, saphenous vein graft to the right coronary artery with endovascular vein harvest from the left greater saphenous vein, endovascular harvest of the left radial artery, occlusion of the left atrial appendage with 35 mm AtriCure clamp, intra- operative graft velocity assessment. Postoperative acute blood loss anemia, expected given hemodilution. The patient was seen and examined in follow-up today 04/18/2023 at his bedside in the intensive care unit. The patient is awaiting a bed on the third floor cardiac septum unit as he has transfer orders in place. He is sitting up to the bedside chair, awake, alert, oriented 3 and is in no acute apparent distress. Oxygen saturation are 95% on room air and he is achieving 1850 mL on his incentive spirometry. He denies any complaints of pain or shortness of breath at this time. The patient is complaining of some drainage from the KRYSTAL drain site to his left arm, he currently has an John wrap and placed to his left arm. There is some ecchymosis to his left arm which is soft and nontender. He has been tolerating walking in the intensive care unit hallway with standby assistance from nursing and therapy staff. Bedside telemetry showing normal sinus rhythm heart rate 89 BPM. He remained hemodynamically stable and is currently on no inotropic or pressor support. Chest x-ray and laboratory results reviewed. Objective - Vital Signs Vital signs: Vital Signs Temp 98.2 F 04/18/23 07:51 Pulse 93 04/18/23 08:11 Resp 18 04/18/23 07:51 BP 137/78 04/18/23 07:51 Pulse Ox 93 L 04/18/23 07:51 FiO2 50 04/14/23 16:01 Intake & Output 04/17/23 04/18/23 04/18/23 18:59 06:59 18:59 Intake Total 240 Output Total 480 1100 Balance -480 -860 Weight 80.3 kg Intake: Oral 240 Output: Urine 480 1100 Other: Voiding Method Urinal Urinal Urinal # Bowel Movements 1 ABP, PAP, CO, CI - Last Documented Arterial Blood Pressure 122/59 Pulmonary Artery Pressure 23/10 Cardiac Output 6.7 Cardiac Index 3.5 - Exam CONSTITUTIONAL: Sitting up to the bedside chair in the intensive care unit, appears comfortable, cooperative, no apparent acute distress. HEENT: Neck is supple, no JVD, no lymphadenopathy. RESPIRATORY: Lungs sounds essentially clear throughout, diminished to his bilateral bases. Respirations are symmetrical and nonlabored. Currently on room air with oxygen saturations 95%. Able to achieve 1850 mL on their incentive spirometry. Strong cough. CARDIOVASCULAR: Regular rhythm and rate. S1 and S2 present, negative for S3, gallop or murmur. Sternum is stable. Palpable peripheral pulses bilaterally, no edema to his bilateral lower extremities. No calf pain or tenderness noted. Heart hugger in place with patient demonstrating appropriate use. Knee-high ROBERTH hose and sequential compression devices in place to his bilateral lower ex tremities. GASTROINTESTINAL: Abdomen soft, nontender, nondistended. Active bowel sounds present 4 quadrants. Tolerating diet. Passing flatus. No guarding or rigidity. GENITOURINARY: Continues to void. Urine output 600 mL in the last 8 hours. INTEGUMENTARY: Skin is warm and dry with no evidence of clubbing or cyanosis. Midline sternal incision clean dry and well approximated, covered with dry intact dressing. Left lower extremity EVH sites well approximated without redness or drainage. Left arm radial artery harvest sites clean, dry and approximated. No drainage or redness is present. Small amount of ecchymosis to his left upper arm. Soft and nontender to touch. NEUROLOGIC: Cranial nerves II through XII intact. No focal deficits. MUSKULOSKELETAL: Able to move all extremities, strength equal bilaterally. PSYCHIATRIC: Alert and oriented to person place and time, appropriate affect, intact judgment and insight. - Allied health notes Allied health notes reviewed: nursing - Labs CBC & Chem 7: 04/18/23 05:09 04/18/23 05:09 Labs: Abnormal Lab Results - Last 24 Hours (Table) 04/17/23 04/17/23 04/17/23 Range/Units 11:26 16:24 20:45 RBC (4.30-5.90) m/uL Hgb (13.0-17.5) gm/dL Hct (39.0-53.0) % Glucose (74-99) mg/dL POC Glucose (mg/dL) 153 H 197 H 128 H (70-110) mg/dL 04/18/23 04/18/23 04/18/23 Range/Units 05:09 05:09 06:37 RBC 3.13 L (4.30-5.90) m/uL Hgb 9.5 L (13.0-17.5) gm/dL Hct 28.3 L (39.0-53.0) % Glucose 129 H (74-99) mg/dL POC Glucose (mg/dL) 142 H (70-110) mg/dL - Imaging and Cardiology Chest x-ray: report reviewed, image reviewed Assessment and Plan Assessment: Multivessel coronary artery disease, status post off-pump CABG 4 Hypertension Hyperlipidemia GERD Lifetime nonsmoker History of diverticulitis, status post bowel perforation, with colostomy and subsequent reversal History of skin cancer, basal and squamous cell Family history of early onset coronary artery disease with his brother having CABG 4 in his late 40s to early 50s Postoperative acute blood loss anemia, expected given hemodilution Plan: Continue to maximize medical therapy with aspirin, statin, and Plavix. Increase metoprolol tartrate to 100 mg by mouth twice a day with hold parameters. Increase Norvasc to 10 mg by mouth daily for radial artery spasm prophylaxis. Encourage incentive spirometry 10 times every hour while awake. Bronchodilators per pulmonology. We will monitor daily labs and chest x-rays. Electrolyte replacement per protocol. Increase activity, ambulate as tolerated. PT/OT/cardiac rehab following. GI/DVT prophylaxis. Pain control with current medication regimen. Insulin management per internal medicine. Preoperative hemoglobin A1c was 8.3%. Transfer orders to the third floor cardiac stepdown unit placed. Transfer when bed available. Continue gentle John wrap to his left arm, encourage the patient elevate his arm. Anticipate discharge home within the next 24 hours with home health care. More recommendations to follow based on patient's clinical course. Time with Patient: Greater than 30
--- NOTE | 2023-04-18 10:58 | P.PN ---
Subjective Progress Note Date: 04/18/23 This is a pleasant 73-year-old male patient with a known history of IVs mellitus, type II, hyperlipidemia, hypertension, family history of early onset coronary artery disease. He had been having issues with heartburn and did undergo stress testing and subsequent cardiac catheterization. He was recommend ed coronary revascularization. He was brought in today electively. He did undergo off-pump coronary artery bypass grafting with a PUCKETT to the LAD, sequential left radial artery graft to the first and second obtuse marginal branches of the circumflex artery, saphenous vein graft to the RCA and left atrial appendage clipping. He is seen today in consultation in the intensive care unit. He was successfully extubated at 3-1/2 hours. He is currently awake and alert. He is in the 90s on 5 L/m per nasal cannula. He is on a insulin drip at 3.5 units per hour. Nitroglycerin drip at 5 mcg/m. Cardizem drip at 5 mg per hour. Lactated Ringer's at 50 MLS per hour. He has right left and mediastinal chest tubes in place. Pacer wires in place. Right IJ [place] catheter in place. PA pressure 23/10. CVP of 4. Cardiac output 5.7. Cardiac index 3.0. He did receive albumin. Asked x-ray reveals limited inspiration with left lower lobe consolidation and small effusion. Tiny left apical p neumothorax measuring less than 5%. White count 14.9. Hemoglobin 11.8. Platelets 260. Sodium 138. Potassium 3.8. Bicarb 19. BUN 9013. Creatinine 0.69. Glucose 194. Ionized calcium 4.8. Magnesium 1.5. AST 16. ALT 11. Albumin 3.2. Arterial blood gases prior to extubation revealed a pO2 of 111, pCO2 38 and a pH of 7.31 on 50% FiO2. The patient is seen today 04/15/2023 in follow-up in the intensive care unit. He is currently sitting up in a chair. Awake and alert in no acute distress. Maintaining O2 saturations in the 90s on 2 L/m per nasal cannula. He's in sinus rhythm. He is on an insulin drip at 2.5 units per hour. Lactated Ringer's at 40 ML's per hour. Still has mediastinal, right and left pleural chest tubes in place. His x-ray reveals postoperative changes. No sizable pneumothorax. White count 10.4. Hemoglobin 10.8. Platelets 264. Sodium 133. Potassium 3.7. Bicarb 20. BUN 10. Creatinine 0.53. Glucose 110. He is continued on bronchodilators. Continues to work well with the incentive spirometer. The patient is seen today 04/16/2023 in follow-up in the intensive care unit. He is currently sitting up in a chair. Awake and alert in no acute distress. Postoperative day #2. He has insulin drip at 1 unit an hour. Lactated Ringer's at 40 miles per hour. He is maintaining good O2 saturations in the 90s on 2 L/m per nasal cannula. He has a left and right chest tube still in place. Interval development of a 10-15% right apical pneumothorax. Bilateral postoperative atelectasis. He continues to work well with the incentive spirometer. White count 7.4. Hemoglobin 10.1. Platelets 175. Sodium 131. Potassium 3.9. Bicarb 21. BUN 14. Creatinine 0.84. Glucose 136. He remains on bronchodilators. Heparin for DVT prophylaxis. The patient is seen today 04/17/2023 in follow-up in the intensive care unit. He is currently awake and alert in no acute distress. Postoperative day #3. He's been up ambulating in the hallway. He is maintaining good O2 saturations in the 90s on room air. No IV fluids. His x-ray reveals interval development of a 10-15% right apical pneumothorax. Bilateral postoperative atelectasis. White count 7.3. Hemoglobin 9.9. Platelets 201. Sodium 136. Potassium 4.2. BUN 18. Creatinine 0.82. Glucose 122. AST 20. ALT 11. He is continued on bronchodilators. Heparin for DVT prophylaxis. The patient is seen today 04/18/2023 in follow-up in the intensive care unit. He remains a 3 S. overflow patient. He is sitting up in a chair at the bedside. Awake and alert in no acute distress. Maintaining good O2 saturations in the 90s on room air. No IV fluids. Postoperative day #4. Chest x-ray reveals stable small right apical pneumothorax. Stable linear opacities in the left lung base and possible trace pleural effusions. White count 6.2. Hemoglobin 9.5. Platelets 243. Sodium 137. Potassium 4.1. Bicarb 24. BUN 20. Creatinine 0.83. Glucose 129. He remains on bronchodilators. Continues to do very well with the incentive spirometer pulling approximately 800 ML's. He's been up emulating in the hallway with assistance. Objective - Vital Signs Vital signs: Vital Signs Temp 98.2 F 04/18/23 07:51 Pulse 93 04/18/23 08:11 Resp 18 04/18/23 07:51 BP 137/78 04/18/23 07:51 Pulse Ox 93 L 04/18/23 07:51 FiO2 50 04/14/23 16:01 Intake & Output 04/17/23 04/18/23 04/18/23 18:59 06:59 18:59 Intake Total 240 Output Total 480 1100 Balance -480 -860 Weight 80.3 kg Intake: Oral 240 Output: Urine 480 1100 Other: Voiding Method Urinal Urinal Urinal # Bowel Movements 1 ABP, PAP, CO, CI - Last Documented Arterial Blood Pressure 122/59 Pulmonary Artery Pressure 23/10 Cardiac Output 6.7 Cardiac Index 3.5 - Exam GENERAL EXAM: Alert, 73-year-old male, in a chair, on room air, comfortable in no apparent distress. HEAD: Normocephalic. EYES: Normal reaction of pupils, equal size. NOSE: Clear with pink turbinates. THROAT: No erythema or exudates. NECK: Right IJ Cordis in place No masses, no JVD. CHEST: Sternal dressing dry and intact. Heart hugger in place. LUNGS: Equal air entry with crackles in the left lung base. CVS: S1 and S2 normal with no audible murmur, regular rhythm. ABDOMEN: No hepatosplenomegaly, hypoactive bowel sounds, no guarding or rigidity. SPINE: No scoliosis or deformity SKIN: No rashes CENTRAL NERVOUS SYSTEM: No focal deficits, tone is normal in all 4 extremities. EXTREMITIES: John wrap so bilateral lower extremities. Peripheral pulses are intact. - Labs CBC & Chem 7: 04/18/23 05:09 04/18/23 05:09 Labs: Abnormal Lab Results - Last 24 Hours (Table) 04/17/23 04/17/23 04/17/23 Range/Units 11:26 16:24 20:45 RBC (4.30-5.90) m/uL Hgb (13.0-17.5) gm/dL Hct (39.0-53.0) % Glucose (74-99) mg/dL POC Glucose (mg/dL) 153 H 197 H 128 H (70-110) mg/dL 04/18/23 04/18/23 04/18/23 Range/Units 05:09 05:09 06:37 RBC 3.13 L (4.30-5.90) m/uL Hgb 9.5 L (13.0-17.5) gm/dL Hct 28.3 L (39.0-53.0) % Glucose 129 H (74-99) mg/dL POC Glucose (mg/dL) 142 H (70-110) mg/dL Assessment and Plan Assessment: Coronary artery disease status post coronary artery bypass grafting with a PUCKETT to the LAD, sequential left radial artery graft to the first and second obtuse marginal branches of the circumflex artery, saphenous vein graft to the RCA and left atrial appendage clipping. Post operative day #4 Diabetes mellitus, type II Hyperlipidemia Hypertension History of diverticulitis with subsequent bowel for aeration with colostomy placement and subsequent reversal Lifelong nonsmoker Plan: The patient was seen and evaluated Chest x-ray, labs and medications reviewed Continues to do well with the incentive spirometer Remains on bronchodilators Heparin for DVT prophylaxis Stable and on room air We will continue to follow I have personally seen and examined the patient, performed the documentation and the assessment and plan as written. Number of minutes spent on the visit: 10.
[2023-04-18 11:26] LABS: Glucose,Whole Blood 121 mg/dL (70-110)
--- NOTE | 2023-04-18 11:35 | P.PN ---
Subjective Progress Note Date: 04/18/23 NO new copmlaints today. Ambulating well. Transitioning to floor today. Gen: awake, alert HEENT: normocephalic, atraumatic, good hearing acuity, moist mucous membranes Resp: good air exchange, breathing comfortably with no accessory muscle use CVS: Normal S1 and S2 GI: soft, NTTP, ND : no SPT, no CVAT MSK: no pitting edema, no clubbing Neuro: non-focal, moving all extremities Psych: cooperative, euthymic mood Data review today: Hemoglobin 9.5, creatinine 0.83, glucose ranged between 128-142 Assessment/plan: CAD status post CABG Hypertension Hyperlipidemia Diabetes type 2 Acute blood loss anemia, anticipated outcome of surgery Plan: -Continue Levemir 15 units, sliding scale insulin -For CAD, patient is on aspirin 325 mg daily, atorvastatin 400 mg daily, metoprolol 75 mg twice a day, Plavix 75 mg daily -Cardiothoracic surgery note reviewed, metoprolol increased -Pulmonology note reviewed, continue current management -Pending transfers to the floors -Likely discharge tomorrow Thank you for allowing us to participate in the care of this pleasant patient. Do not hesitate to contact us with questions. Someone can be reached from the [facility] hospitalist group all hours of the day at [phone] or via [employer]. Objective - Vital Signs Vital signs: Vital Signs Temp 98.2 F 04/18/23 07:51 Pulse 93 04/18/23 08:11 Resp 18 04/18/23 07:51 BP 137/78 04/18/23 07:51 Pulse Ox 93 L 04/18/23 07:51 FiO2 50 04/14/23 16:01 Intake & Output 04/17/23 04/18/23 04/18/23 18:59 06:59 18:59 Intake Total 240 Output Total 480 1100 Balance -480 -860 Weight 80.3 kg Intake: Oral 240 Output: Urine 480 1100 Other: Voiding Method Urinal Urinal Urinal # Bowel Movements 1 ABP, PAP, CO, CI - Last Documented Arterial Blood Pressure 122/59 Pulmonary Artery Pressure 23/10 Cardiac Output 6.7 Cardiac Index 3.5 - Labs CBC & Chem 7: 04/18/23 05:09 04/18/23 05:09 Labs: Abnormal Lab Results - Last 24 Hours (Table) 04/17/23 04/17/23 04/18/23 Range/Units 16:24 20:45 05:09 RBC 3.13 L (4.30-5.90) m/uL Hgb 9.5 L (13.0-17.5) gm/dL Hct 28.3 L (39.0-53.0) % Glucose (74-99) mg/dL POC Glucose (mg/dL) 197 H 128 H (70-110) mg/dL 04/18/23 04/18/23 04/18/23 Range/Units 05:09 06:37 11:25 RBC (4.30-5.90) m/uL Hgb (13.0-17.5) gm/dL Hct (39.0-53.0) % Glucose 129 H (74-99) mg/dL POC Glucose (mg/dL) 142 H 121 H (70-110) mg/dL
[2023-04-18 16:53] LABS: Glucose,Whole Blood 157 mg/dL (70-110)
--- NOTE | 2023-04-18 18:42 | P.PN ---
Subjective Progress Note Date: 04/18/23 PROGRESS NOTE The patient is a 73-year-old male with a family history of premature CAD, hypertension, diabetes and hyperlipidemia, followed by Dr. Sidhu who presented earlier this month with symptoms of chest discomfort and had a significantly abnormal stress test. He subsequently underwent cardiac catheterization on April 01 and was found to have significant obstructive disease involving the RCA, LAD and left circumflex. He was admitted today electively and underwent coronary artery bypass grafting. He received a PUCKETT to LAD and left radial to the first and second obtuse marginal branch and SVG to the RCA with closure of the left atrial appendage. He is intubated, starting to wake up. In sinus mechanism and hemodynamically stable. He has no history of CHF or significant valvular disease. There is no history of atrial fibrillation. April 15: The patient is extubated, sitting up in the chair. He is in sinus mechanism. He denies any significant dyspnea. He has soreness in the chest. He denies any nausea or vomiting. Hemodynamically he is stable on no vasopressors. His urinary output is been stable. April 16: The patient is feeling well this morning, he continues to be in sinus mechanism. He has mild soreness in the chest. He is on no vasopressors. He denies any dizziness or palpitations. He denies any nausea or vomiting. He continues to have the chest tube. He is ambulating. 04/17/23 Patient is doing well from cardiac vessel standpoint. He is tolerating oral diet, no evidence of atrial fibrillation on telemetry Lab shows hemoglobin 9.9, platelets 201, sodium 136, creatinine 0.8 Vitals 135/80, heart rate 85 beats a minute. Saturating well on room air 04/18/23 Patient is doing well from cardiac standpoint. No arrhythmias on telemetry monitoring. Ambulating in the hospital without any limitations. No swelling in the legs PHYSICAL EXAMINATION: LUNGS: Clear to auscultation HEART: Regular rate and rhythm, S1, S2. No S3. Systolic ejection murmur, rub noted ABDOMEN: Soft, nontender, no organomegaly EXTREMETIES: No edema IMPRESSION: 1. Status post CABG, stable 2. History of hypertension 3. History of hyperlipidemia 4. History of diabetes PLAN: 1. Continue present therapy Aspirin, Lasix 75 mg daily, Norvasc 5 mg daily, metoprolol 50 mg twice a day, Lipitor 40 mg daily, Plavix 75 mg daily 2. Incentive spirometry 3. Increase physical activity 4. Depending on the progress further recommendations will be made Objective - Vital Signs Vital signs: Vital Signs Temp 98.2 F 04/18/23 16:00 Pulse 96 04/18/23 16:00 Resp 14 04/18/23 16:00 BP 140/85 04/18/23 16:00 Pulse Ox 93 L 04/18/23 16:00 FiO2 50 04/14/23 16:01 Intake & Output 04/17/23 04/18/23 04/18/23 18:59 06:59 18:59 Intake Total 240 Output Total 480 1100 950 Balance -480 -710 -950 Weight 80.3 kg Intake: Oral 240 Output: Urine 480 1100 950 Other: Voiding Method Urinal Urinal Urinal # Bowel Movements 1 ABP, PAP, CO, CI - Last Documented Arterial Blood Pressure 122/59 Pulmonary Artery Pressure 23/10 Cardiac Output 6.7 Cardiac Index 3.5 - Labs CBC & Chem 7: 04/18/23 05:09 04/18/23 05:09 Labs: Abnormal Lab Results - Last 24 Hours (Table) 04/17/23 04/18/23 04/18/23 Range/Units 20:45 05:09 05:09 RBC 3.13 L (4.30-5.90) m/uL Hgb 9.5 L (13.0-17.5) gm/dL Hct 28.3 L (39.0-53.0) % Glucose 129 H (74-99) mg/dL POC Glucose (mg/dL) 128 H (70-110) mg/dL 04/18/23 04/18/23 04/18/23 Range/Units 06:37 11:25 16:52 RBC (4.30-5.90) m/uL Hgb (13.0-17.5) gm/dL Hct (39.0-53.0) % Glucose (74-99) mg/dL POC Glucose (mg/dL) 142 H 121 H 157 H (70-110) mg/dL
[2023-04-18] MEDS: SENNOSIDES-DOCUSATE SODIUM 1 EACH TAB PO SCH (20:43)
[2023-04-18 23:20] LABS: Glucose,Whole Blood 149 mg/dL (70-110)
[2023-04-19 05:57] LABS: HCT 28.7 % (39.0-53.0); HGB 9.6 gm/dL (13.0-17.5); MCH 30.3 pg (25.0-35.0); MCHC 33.5 g/dL (31.0-37.0); MCV 90.4 fL (80.0-100.0); Mean Platelet Volume 7.8; Platelet Count 272 k/uL (150-450); RBC 3.17 m/uL (4.30-5.90); RDW 13.5 % (11.5-15.5); WBC 5.3 k/uL (3.8-10.6)
[2023-04-19] MEDS: PANTOPRAZOLE 40 MG TABLET PO SCH (06:04)
[2023-04-19] MEDS: KETOROLAC 15 MG/ML 1 ML VIAL IVP SCH (06:04)
[2023-04-19 06:05] LABS: Glucose,Whole Blood 160 mg/dL (70-110)
[2023-04-19] MEDS: INSULIN DETEMIR (LEVEMIR) 100 UNIT/ML SYR SQ SCH (06:05)
[2023-04-19] MEDS: INSULIN ASPART (NovoLOG) 100 UNIT/ML VIAL SQ SCH (06:06)
[2023-04-19 06:09] LABS: African American GFR (CKD) >90 (>60 ml/min/1.73 sqM); Anion Gap 8 mmol/L; Blood Urea Nitrogen 19 mg/dL (9-20); Calcium 8.7 mg/dL (8.4-10.2); Carbon Dioxide 24 mmol/L (22-30); Chloride 106 mmol/L (98-107); Glucose 130 mg/dL (74-99); Non-African American GFR(CKD) >90 (>60 ml/min/1.73 sqM); Sodium 138 mmol/L (137-145)
--- NOTE | 2023-04-19 07:50 | XR ---
EXAMINATION TYPE: XR chest 2V DATE OF EXAM: 04/19/2023 6:27 AM COMPARISON: Chest radiographs from 04/18/2023 TECHNIQUE: XR chest 2V Frontal and lateral views of the chest. CLINICAL INDICATION:Male, 73 years old with history of post cardiac surgery; FINDINGS: Lungs/Pleura: Similar small right apical pneumothorax. Elevation of the left hemidiaphragm again. Tra ce right pleural effusion. Pulmonary vascularity: Unremarkable. Heart/mediastinum: Cardiomediastinal silhouette is stable. Post CABG changes. Left atrial appendage occlusion devices present. Musculoskeletal: No acute osseous pathology. Midline sternotomy wires are noted and stable. IMPRESSION: 1. Similar small right apical pneumothorax. 2. Post CABG changes. 3. Trace right pleural effusion.
[2023-04-19] MEDS: HEPARIN SODIUM,PORCINE 5,000 UNIT/ML 1 ML VIAL SQ SCH (08:18)
[2023-04-19] MEDS: ATORVASTATIN 40 MG TAB PO SCH (08:18)
[2023-04-19] MEDS: METOPROLOL TARTRATE 50 MG TAB PO SCH (08:18)
[2023-04-19] MEDS: ASPIRIN 325 MG TAB PO SCH (08:18)
[2023-04-19] MEDS: CLOPIDOGREL 75 MG TAB PO SCH (08:18)
[2023-04-19] MEDS: amLODIPine 10 MG TAB PO SCH (08:18)
[2023-04-19 09:07] VITALS: BP 135/80; TEMP 97.5
--- NOTE | 2023-04-19 09:37 | P.PN ---
Subjective Progress Note Date: 04/19/23 This is a pleasant 73-year-old male patient with a known history of IVs mellitus, type II, hyperlipidemia, hypertension, family history of early onset coronary artery disease. He had been having issues with heartburn and did undergo stress testing and subsequent cardiac catheterization. He was recommen ded coronary revascularization. He was brought in today electively. He did undergo off-pump coronary artery bypass grafting with a PUCKETT to the LAD, sequential left radial artery graft to the first and second obtuse marginal branches of the circumflex artery, saphenous vein graft to the RCA and left atrial appendage clipping. He is seen today in consultation in the intensive care unit. He was successfully extubated at 3-1/2 hours. He is currently awake and alert. He is in the 90s on 5 L/m per nasal cannula. He is on a insulin drip at 3.5 units per hour. Nitroglycerin drip at 5 mcg/m. Cardizem drip at 5 mg per hour. Lactated Ringer's at 50 MLS per hour. He has right left and mediastinal chest tubes in place. Pacer wires in place. Right IJ [place]-Fabian catheter in place. PA pressure 23/10. CVP of 4. Cardiac output 5.7. Cardiac index 3.0. He did receive albumin. Asked x-ray reveals limited inspiration with left lower lobe consolidation and small effusion. Tiny left apical pneumothorax measuring less than 5%. White count 14.9. Hemoglobin 11.8. Platelets 260. Sodium 138. Potassium 3.8. Bicarb 19. BUN 9013. Creatinine 0.69. Glucose 194. Ionized calcium 4.8. Magnesium 1.5. AST 16. ALT 11. Albumin 3.2. Arterial blood gases prior to extubation revealed a pO2 of 111, pCO2 38 and a pH of 7.31 on 50% FiO2. The patient is seen today 04/15/2023 in follow-up in the intensive care unit. He is currently sitting up in a chair. Awake and alert in no acute distress. Maintaining O2 saturations in the 90s on 2 L/m per nasal cannula. He's in sinus rhythm. He is on an insulin drip at 2.5 units per hour. Lactated Ringer's at 40 ML's per hour. Still has mediastinal, right and left pleural chest tubes in place. His x-ray reveals postoperative changes. No sizable pneumothorax. White count 10.4. Hemoglobin 10.8. Platelets 264. Sodium 133. Potassium 3.7. Bicarb 20. BUN 10. Creatinine 0.53. Glucose 110. He is continued on bronchodilators. Continues to work well with the incentive spirometer. The patient is seen today 04/16/2023 in follow-up in the intensive care unit. He is currently sitting up in a chair. Awake and alert in no acute distress. Postoperative day #2. He has insulin drip at 1 unit an hour. Lactated Ringer's at 40 miles per hour. He is maintaining good O2 saturations in the 90s on 2 L/m per nasal cannula. He has a left and right chest tube still in place. Interval development of a 10-15% right apical pneumothorax. Bilateral postoperative atelectasis. He continues to work well with the incentive spirometer. White count 7.4. Hemoglobin 10.1. Platelets 175. Sodium 131. Potassium 3.9. Bicarb 21. BUN 14. Creatinine 0.84. Glucose 136. He remains on bronchodilators. Heparin for DVT prophylaxis. The patient is seen today 04/17/2023 in follow-up in the intensive care unit. He is currently awake and alert in no acute distress. Postoperative day #3. He's been up ambulating in the hallway. He is maintaining good O2 saturations in the 90s on room air. No IV fluids. His x-ray reveals interval development of a 10-15% right apical pneumothorax. Bilateral postoperative atelectasis. White count 7.3. Hemoglobin 9.9. Platelets 201. Sodium 136. Potassium 4.2. BUN 18. Creatinine 0.82. Glucose 122. AST 20. ALT 11. He is continued on bronchodilators. Heparin for DVT prophylaxis. The patient is seen today 04/18/2023 in follow-up in the intensive care unit. He remains a 3 S. overflow patient. He is sitting up in a chair at the bedside. Awake and alert in no acute distress. Maintaining good O2 saturations in the 90s on room air. No IV fluids. Postoperative day #4. Chest x-ray reveals stable small right apical pneumothorax. Stable linear opacities in the left lung base and possible trace pleural effusions. White count 6.2. Hemoglobin 9.5. Platelets 243. Sodium 137. Potassium 4.1. Bicarb 24. BUN 20. Creatinine 0.83. Glucose 129. He remains on bronchodilators. Continues to do very well with the incentive spirometer pulling approximately 800 ML's. He's been up emulating in the hallway with assistance. On today's evaluation of 04/19/2023, the patient is postop day #5. He underwent an off pump bypass surgery with PUCKETT to LAD and the radial graft to first and second acute marginal and saphenous being graft to RCA. The patient is doing extremely well. Is currently on room air oxygen. The chest x-ray shows no acute abnormalities than a less than 5% pneumothorax on the right. There is some atelectatic change in the left lung base. Hemoglobin is currently at 9.6 which is stable compared to yesterday. Platelet count is at 272. Urine is at 19 with a creatinine of 0.76. His sodium level is at 138. He remains on a combination of aspirin 325 mg by mouth daily, Plavix 75 mg by mouth daily, metformin 100 mg by mouth twice a day and his cardiac rhythm is sinus and the rate is controlled for now. He is also on Levemir insulin 15 units and a slidin g scale coverage. He is on Norvasc 10 mg by mouth daily for blood pressure control. He is ambulating. Surgical site is dry and clean and intact. The plan is to discharge this patient possibly today. Objective - Vital Signs Vital signs: Vital Signs Temp 97.5 F L 04/19/23 08:00 Pulse 75 04/19/23 08:00 Resp 20 04/19/23 08:00 BP 135/80 04/19/23 08:00 Pulse Ox 98 04/19/23 08:00 FiO2 50 04/14/23 16:01 Intake & Output 04/18/23 04/19/23 04/19/23 18:59 06:59 18:59 Output Total 950 0 Balance -950 0 Output: Urine 950 0 Other: Voiding Method Urinal Urinal Urinal # Voids 1 # Bowel Movements 1 ABP, PAP, CO, CI - Last Documented Arterial Blood Pressure 122/59 Pulmonary Artery Pressure 23/10 Cardiac Output 6.7 Cardiac Index 3.5 - Exam GENERAL EXAM: Alert, 73-year-old male, in a chair, on room air, comfortable in no apparent distress. HEAD: Normocephalic. EYES: Normal reaction of pupils, equal size. NOSE: Clear with pink turbinates. THROAT: No erythema or exudates. NECK: Right IJ Cordis in place No masses, no JVD. CHEST: Sternal dressing dry and intact. Heart hugger in place. LUNGS: Equal air entry with crackles in the left lung base. CVS: S1 and S2 normal with no audible murmur, regular rhythm. ABDOMEN: No hepatosplenomegaly, hypoactive bowel sounds, no guarding or rigidity. SPINE: No scoliosis or deformity SKIN: No rashes CENTRAL NERVOUS SYSTEM: No focal deficits, tone is normal in all 4 extremities. EXTREMITIES: John wrap so bilateral lower extremities. Peripheral pulses are intact. - Labs CBC & Chem 7: 04/19/23 04:22 04/19/23 04:22 Labs: Abnormal Lab Results - Last 24 Hours (Table) 04/18/23 04/18/23 04/18/23 Range/Units 11:25 16:52 23:19 RBC (4.30-5.90) m/uL Hgb (13.0-17.5) gm/dL Hct (39.0-53.0) % Glucose (74-99) mg/dL POC Glucose (mg/dL) 121 H 157 H 149 H (70-110) mg/dL 04/19/23 04/19/23 04/19/23 Range/Units 04:22 04:22 06:03 RBC 3.17 L (4.30-5.90) m/uL Hgb 9.6 L (13.0-17.5) gm/dL Hct 28.7 L (39.0-53.0) % Glucose 130 H (74-99) mg/dL POC Glucose (mg/dL) 160 H (70-110) mg/dL Assessment and Plan Plan: Coronary artery disease status post coronary artery bypass grafting with a PUCKETT to the LAD, sequential left radial artery graft to the first and second obtuse marginal branches of the circumflex artery, saphenous vein graft to the RCA and left atrial appendage clipping. Post operative day #5 Diabetes mellitus, type II, on Ozempic and Metfromin Hyperlipidemia Hypertension History of diverticulitis with subsequent bowel for aeration with colostomy placement and subsequent reversal Lifelong nonsmoker Plan: Patient was seen and evaluated. The patient is clinically stable and hemodynamically stable. No objections for discharge today. Remains on aspirin and Plavix and metoprolol. Remains on Lipitor 40 mg by mouth daily. Remains on Norvasc. Is blood sugar medications can be resumed on outpatient basis. We will continue using incentive spirometer. We'll coordinate his care with cardiothoracic surgery.
[2023-04-19] MEDS: IPRATROPIUM-ALBUTEROL 3 ML NEB INHALATION SCH ×2 (09:38→12:23)
[2023-04-19 09:45] VITALS: RESP 16
--- NOTE | 2023-04-19 10:02 | P.PN ---
Subjective Progress Note Date: 04/19/23 Principal diagnosis: Multivessel coronary artery disease. Past medical history significant for hypertension, hyperlipidemia, diabetes mellitus type 2, family history of early onset coronary artery disease with his brother having a CABG 4 in his late 40s or early 50s, GERD, diverticulosis with previous bowel perforation requiring colostomy and subsequent reversal, and the patient is a lifetime nonsmoker. POD #5 Off pump CABG 4 with PUCKETT to LAD, sequential left radial artery graft to first and second obtuse marginal branches of the circumflex coronary artery, saphenous vein graft to the right coronary artery with endovascular vein harvest from the left greater saphenous vein, endovascular harvest of the left radial artery, occlusion of the left atrial appendage with 35 mm AtriCure clamp, intra- operative graft velocity assessment. Postoperative acute blood loss anemia, expected given hemodilution. The patient was seen and examined this morning with Dr. Huertas sitting up in a recliner in no acute distress. States pain is controlled on current medication regimen. Remains in sinus rhythm, hemodynamically stable. Currently on room air. Has been indeterminate hallway. He anticipates discharge to home today. Objective - Vital Signs Vital signs: Vital Signs Temp 97.5 F L 04/19/23 08:00 Pulse 79 04/19/23 09:47 Resp 16 04/19/23 09:47 BP 135/80 04/19/23 08:00 Pulse Ox 98 04/19/23 08:00 FiO2 50 04/14/23 16:01 Intake & Output 04/18/23 04/19/23 04/19/23 18:59 06:59 18:59 Output Total 950 0 Balance -950 0 Output: Urine 950 0 Other: Voiding Method Urinal Urinal Urinal # Voids 1 # Bowel Movements 1 ABP, PAP, CO, CI - Last Documented Arterial Blood Pressure 122/59 Pulmonary Artery Pressure 23/10 Cardiac Output 6.7 Cardiac Index 3.5 - Exam CONSTITUTIONAL: Appears comfortable, cooperative, no acute distress RESPIRATORY: Lungs sounds diminished bilaterally. Respirations even, nonlabored. Currently on room air with oxygen saturation 98%. Able to achieve 2500 mL on incentive spirometry. Strong cough. CARDIOVASCULAR: S1, S2 present. Regular rate and rhythm, sinus rhythm on telemetry. Sternum stable. Palpable peripheral pulses bilaterally. No edema present. No calf pain or tenderness noted. Heart hugger in place with patient demonstrating appropriate use. Antiembolism stockings, SCDs present. GASTROINTESTINAL: Abdomen soft, nontender, nondistended. Active bowel sounds present 4 quadrants. Tolerating diet. Positive bowel movement 04/18. GENITOURINARY: Continues to void INTEGUMENTARY: Skin is warm and dry with evidence of good perfusion. Anterior chest incision well approximated and covered with dry intact dressing. Left radial artery and left lower extremity EVH site well approximated without redness or drainage, left arm ecchymotic. NEUROLOGIC: Cranial nerves II through XII intact MUSKULOSKELETAL: Able to move all extremities, strength equal bilaterally, gait normal PSYCHIATRIC: Alert and oriented to person place and time, appropriate affect, intact judgment and insight - Allied health notes Allied health notes reviewed: nursing - Labs CBC & Chem 7: 04/19/23 04:22 04/19/23 04:22 Labs: Abnormal Lab Results - Last 24 Hours (Table) 04/18/23 04/18/23 04/18/23 Range/Units 11:25 16:52 23:19 RBC (4.30-5.90) m/uL Hgb (13.0-17.5) gm/dL Hct (39.0-53.0) % Glucose (74-99) mg/dL POC Glucose (mg/dL) 121 H 157 H 149 H (70-110) mg/dL 04/19/23 04/19/23 04/19/23 Range/Units 04:22 04:22 06:03 RBC 3.17 L (4.30-5.90) m/uL Hgb 9.6 L (13.0-17.5) gm/dL Hct 28.7 L (39.0-53.0) % Glucose 130 H (74-99) mg/dL POC Glucose (mg/dL) 160 H (70-110) mg/dL - Imaging and Cardiology Chest x-ray: report reviewed, image reviewed Assessment and Plan Assessment: Multivessel coronary artery disease, status post off-pump CABG 4 Hypertension Hyperlipidemia GERD Lifetime nonsmoker History of diverticulitis, status post bowel perforation, with colostomy and subsequent reversal History of skin cancer, basal and squamous cell Family history of early onset coronary artery disease with his brother having CABG 4 in his late 40s to early 50s Postoperative acute blood loss anemia, expected given hemodilution Plan: Continue to maximize medical therapy with aspirin, statin, plavix, beta tez Continue Norvasc to 10 mg by mouth daily for radial artery spasm prophylaxis. Encourage incentive spirometry 10 times every hour while awake. Bronchodilators per pulmonology. Will monitor daily labs and chest x-rays. Electrolyte replacement per protocol. Increase activity, ambulate as tolerated. PT/OT/cardiac rehab following. GI/DVT prophylaxis. Pain control with current medication regimen. Insulin management per internal medicine. Preoperative hemoglobin A1c was 8.3%. Transfer orders placed to the third floor cardiac stepdown unit, no bed available Encourage the patient to elevate his arm. Discharge planning in progress, anticipate discharge to home care today More recommendations to follow based on patient's clinical course.
[2023-04-19 10:05] VITALS: PULSE 79
[2023-04-19 11:17] LABS: Glucose,Whole Blood 149 mg/dL (70-110)
--- NOTE | 2023-04-19 11:23 | P.PN ---
Subjective Progress Note Date: 04/19/23 NO new copmlaints today. Ambulating well. Anticipating discharge home today Gen: awake, alert HEENT: normocephalic, atraumatic, good hearing acuity, moist mucous membranes Resp: good air exchange, breathing comfortably with no accessory muscle use CVS: Normal S1 and S2 GI: soft, NTTP, ND : no SPT, no CVAT MSK: no pitting edema, no clubbing Neuro: non-focal, moving all extremities Psych: cooperative, euthymic mood Data review today: Hemoglobin 9.6, creatinine 0.76, blood sugars range between 1:30 to 160 Chest x-ray independently interpreted, no changes compared to before Assessment/plan: CAD status post CABG Hypertension Hyperlipidemia Diabetes type 2 Acute blood loss anemia, anticipated outcome of surgery Plan: -Continue Levemir 15 units, sliding scale insulin while inpatient -For CAD, patient is on aspirin 325 mg daily, atorvastatin 40 mg daily, metoprolol 100 mg twice a day, Plavix 75 mg daily -Cardiothoracic surgery note reviewed, likely discharge home today -Pulmonology note reviewed, continue current management Home medications reviewed, patient is medically optimized for discharge home. Thank you for allowing us to participate in the care of this pleasant patient. Do not hesitate to contact us with questions. Someone can be reached from the [facility] hospitalist group all hours of the day at [phone] or via [email or web address]. Objective - Vital Signs Vital signs: Vital Signs Temp 97.5 F L 04/19/23 08:00 Pulse 79 04/19/23 09:47 Resp 16 04/19/23 09:47 BP 135/80 04/19/23 08:00 Pulse Ox 98 04/19/23 08:00 FiO2 50 04/14/23 16:01 Intake & Output 04/18/23 04/19/23 04/19/23 18:59 06:59 18:59 Output Total 950 0 Balance -950 0 Output: Urine 950 0 Other: Voiding Method Urinal Urinal Urinal # Voids 1 # Bowel Movements 1 ABP, PAP, CO, CI - Last Documented Arterial Blood Pressure 122/59 Pulmonary Artery Pressure 23/10 Cardiac Output 6.7 Cardiac Index 3.5 - Labs CBC & Chem 7: 04/19/23 04:22 04/19/23 04:22 Labs: Abnormal Lab Results - Last 24 Hours (Table) 04/18/23 04/18/23 04/18/23 Range/Units 11:25 16:52 23:19 RBC (4.30-5.90) m/uL Hgb (13.0-17.5) gm/dL Hct (39.0-53.0) % Glucose (74-99) mg/dL POC Glucose (mg/dL) 121 H 157 H 149 H (70-110) mg/dL 04/19/23 04/19/23 04/19/23 Range/Units 04:22 04:22 06:03 RBC 3.17 L (4.30-5.90) m/uL Hgb 9.6 L (13.0-17.5) gm/dL Hct 28.7 L (39.0-53.0) % Glucose 130 H (74-99) mg/dL POC Glucose (mg/dL) 160 H (70-110) mg/dL 04/19/23 Range/Units 11:15 RBC (4.30-5.90) m/uL Hgb (13.0-17.5) gm/dL Hct (39.0-53.0) % Glucose (74-99) mg/dL POC Glucose (mg/dL) 149 H (70-110) mg/dL
--- NOTE | 2023-04-19 15:15 | P.DS ---
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 Multivessel coronary artery disease 2. Hypertension 3. Hyperlipidemia 4. GERD 5. Lifetime nonsmoker 6. History of premature coronary artery disease 7. Postoperative acute blood loss anemia, expected PRINCIPAL PROCEDURE: 1. Off-pump coronary artery bypass graft 4 with left internal mammary artery to left anterior descending artery, sequential left radial artery graft to first and second obtuse marginal branches of the circumflex coronary artery, reverse saphenous vein graft to the right coronary artery 2. Endovascular vein harvest from the left greater saphenous vein 3. Endovascular harvest the left radial artery 4. Occlusion of the left atrial appendage with a 35 mm AtriCure clamp 5. Intraoperative graft velocity assessment HISTORY OF PRESENT ILLNESS: This is a 73 year old gentleman who follow outpat ient with Dr. Zamarripa for primary care and Dr. Sidhu for cardiology. Apparently this gentleman reported some episodes of heartburn when he went for his annual primary care exam and he was recommended to undergo a stress test which was abnormal demonstrating significant area of ischemia in the LAD distribution. Subsequently he underwent heart catheterization which demonstrated a calcified left main coronary artery without significant stenosis, 90% mid LAD stenosis, 70% proximal circumflex stenosis, and focal 95% stenosis to the midportion of the RCA with 70% stenosis as the RCA bifurcated into the PDA and PLV. Consultation was placed to Dr. Huertas from cardiothoracic surgery. He was recommended to undergo off-pump CABG. The usual perioperative course was discussed in detail with the patient and his family, all risks and benefits were explained, all questions were answered, and consent was obtained to proceed with surgery. The patient was discharged to home on maximal medical therapy to return as an outpatient for surgery. HOSPITAL COURSE: The patient was brought to the hospital on 04/14/2023, taken to the preoperative area, prepared in the usual fashion, and subsequently taken to the operating room where Dr. Huertas performed four vessel off pump CABG. Upon completion of surgery the patient was transferred to the cardiovascular intensive care unit where she was recovered and monitored hemodynamically. He was extubated, all lines, tubes, and drips were discontinued when appropriate, and transfer orders were placed for 3 S. cardiac stepdown unit, however there was no bed availability and the patient remained on ICU as a stepdown patient until discharge. His oxygen was titrated down, he continued to work with physical and occupational therapy, he was tolerating oral diet, his pain was controlled, and he was ready to be discharged to home with [facility] on [facility] day #4. He received written and verbal instruction regarding his medications, activity restrictions, signs and symptoms requiring physician notification, and follow-up appointments. Patient Condition at Discharge: Stable Plan - Discharge Summary Discharge Rx Participant: No New Discharge Prescriptions: New Clopidogrel [Plavix] 75 mg PO DAILY #30 tab Pantoprazole [Protonix] 40 mg PO AC-BRKFST #30 tab Metoprolol Tartrate [Lopressor] 100 mg PO BID #60 tab amLODIPine [Norvasc] 10 mg PO DAILY #30 tab Sennosides-Docusate Sodium [Senokot-S] 2 each PO HS PRN tab PRN Reason: Constipation Acetaminophen Tab [Tylenol] 1,000 mg PO Q6HR PRN tab PRN Reason: Fever and/ or Mild Pain Continue Aspirin 81 mg PO DAILY metFORMIN HCL [Glucophage] 1,000 mg PO BID Multivitamin [Men's Multi-Vitamin] 1 each PO DAILY Semaglutide [Ozempic] 0.5 ml SQ WEEKLY Atorvastatin [Lipitor] 40 mg PO HS Discontinued Omeprazole [PriLOSEC] 20 mg PO DAILY PRN PRN Reason: reflux Metoprolol Tartrate [Lopressor] 25 mg PO BID #60 tab amLODIPine [Norvasc] 5 mg PO DAILY #30 tab Nitroglycerin Sl Tabs [Nitrostat] 0.4 mg SUBLINGUAL Q5M PRN #25 tab PRN Reason: Chest Pain Isosorbide Mononitrate ER [Imdur] 30 mg PO DAILY #30 tab lisinopriL [Zestril] 10 mg PO DAILY #30 tab Discharge Medication List Aspirin 81 mg PO DAILY 05/08/16 [History] Multivitamin [Men's Multi-Vitamin] 1 each PO DAILY 05/08/16 [History] metFORMIN HCL [Glucophage] 1,000 mg PO BID 05/08/16 [History] Atorvastatin [Lipitor] 40 mg PO HS 04/01/23 [History] Semaglutide [Ozempic] 0.5 ml SQ WEEKLY 04/01/23 [History] Acetaminophen Tab [Tylenol] 1,000 mg PO Q6HR PRN tab 04/19/23 [Rx] Clopidogrel [Plavix] 75 mg PO DAILY #30 tab 04/19/23 [Rx] Metoprolol Tartrate [Lopressor] 100 mg PO BID #60 tab 04/19/23 [Rx] Pantoprazole [Protonix] 40 mg PO AC-BRKFST #30 tab 04/19/23 [Rx] Sennosides-Docusate Sodium [Senokot-S] 2 each PO HS PRN tab 04/19/23 [Rx] amLODIPine [Norvasc] 10 mg PO DAILY #30 tab 04/19/23 [Rx] Follow up Appointment(s)/Referral(s): Shahida Jimenez NPC [Nurse Practitioner] - 04/22/23 2:00 pm Jimmy Zamarripa MD [Primary Care Provider] - 04/29/23 12:00 pm Yfn Huertas MD [STAFF PHYSICIAN] - 05/13/23 10:00 am Usama Cordoba DO [Doctor of Osteopathic Medicine] - 05/14/23 9:00 am [facility] [NON-STAFF] - 1-2 Days ([facility] will call you to arrange a visit) Jan Sidhu MD [STAFF PHYSICIAN] - 04/22/23 2:45 pm [facility] [NON-STAFF] - 4 Weeks (You will receive a phone call in approximately 4-6 weeks for evaluation for cardiac rehab) Ambulatory/Diagnostic Orders: Complete Blood Count w/diff [LAB.AMB] Time Frame: 3 Days, Location: None Selected Comprehensive Metabolic Panel [LAB.AMB] Time Frame: 3 Days, Location: None Selected Activity/Diet/Wound Care/Special Instructions: DISCHARGE INSTRUCTIONS: 1. No driving for 4 weeks, or until physician gives their ok. 2. The patient should sleep in their own bed, no medical bed needed. 3. Stairs are not an issue. If the bedroom is upstairs, it is advised that the patient go up at night and down in the morning for the first week. Go slowly, using handrail and take 1 step at a time. 4. ROBERTH hose are to be worn for 30 days post surgery or until physician discontinues. 5. Heart hugger is to be worn 100% of the time until physician discontinues.(except when showering) 6. No lifting, pushing, or pulling more than 10 pounds for 12 weeks. The physician will advise of any restriction changes. 7. The patient is expected to continue the prescribed walking program. 8. Continue pain control per as needed orders. 9. Continue with incentive spirometry and splinting/heart hugger until otherwise directed by the physician. 10. Must shower daily using liquid antibacterial soap 11. Routine sternal incision care. No powders, lotions, ointments on incisions. No dressings are necessary on incisions unless they are draining. Dermabond tape is to remain on sternal incision until surgeon follow-up. 12. Please call surgeon/BAKERY CHEF for temp greater than 101 F or purulent drainage from incisions. 13. You should weigh yourself daily, record and bring log with you to follow up appointments. 14. All prescriptions given by surgeon for 30 days. Refills need to be filled through professor of [employer] americ[employer] studies/primary care physician. 15. A Red armband has been placed on the patient. It should be worn for 30 days post discharge from surgery and will be removed by the cardiac surgeons. If an ER visit is necessary, please make sure the number on the Red armband is called before going to ER. 16. You have been referred to and are expected to begin Cardiac Rehab in approximately 4-6 weeks. 17. Quitting smoking is the most important step you can take to improve your health. For additional information and assistance to quit smoking, please call the [place] tobacco quit line (2-157-VHQU-NOW/ ) or online: [email or web address]://[email or web address].gov/[email or web address]-[email or web address] -[email or web address]-tobacco HOME HEALTH SERVICES TO PROVIDE: RN SKILLED HOME CARE SERVICES FOR POST-OP SURGICAL PATIENTS WITH THE FOLLOWING: Coronary Artery Bypass Surgery (CABG), Mitral Valve Replacement/Repair ( MVR), Aortic Valve Replacement/Repair (AVR) RN TO CONTINUE EDUCATION FROM ``ROAD TO A HEALTH HEART PATIENT EDUCATION MANUAL (GIVEN TO PATIENT IN THE HOSPITAL) MEDICATION RECONCILIATION WITH EDUCATION NEEDED ON FIRST HOME VISIT EMPHASIZE IMPORTANCE OF WEARING BREAST SUPPORT/HEART HUGGER ENCOURAGE USE OF INCENTIVE SPIROMETER 10 X EVERY HOUR WHILE AWAKE ENCOURAGE UTILIZATION OF LOWER EXTREMITY COMPRESSION STOCKINGS/ROBERTH HOSE and ELEVATE LEGS ABOVE LEVEL OF HEART WHILE AT REST. ENCOURAGE AMBULATION 3-5x/day INCREASING TOLERATES, WHILE AVOIDING EXTREMES IN TEMPERATURE FREQUENCY: RN TO OPEN THE PATIENT WITHIN 24 HOURS OF DISCHARGE FROM THE HOSPITAL WITH [place] [facility] [place]ISIT 2-3 X A WEEK FOR 4 WEEKS ESTABLISHED BY PATIENT NEEDS. LABORATORY: CBC, CMP TO BE DRAWN ON THE THIRD DAY HOME, (RAN STAT) FAX RESULTS TO [phone]. TELEHEALTH PARAMETERS: WEIGHT: NOTIFY MD OF WEIGHT GAIN OF 2 LBS IN 24 HOURS OR 5 LBS IN ONE WEEK HR: NOTIFY MD OF HR <55 BPM OR HR>100 BPM BP: NOTIFY MD IF BP <90/55 OR BP>140/100 O2 SAT: NOTIFY MD IF PO2<93% ON ROOM AIR SEND TELEHEALTH REPORT TO DIRECTOR REGULATORY AFFAIRS AND CARDIOVASCULAR SURGEON THE FIRST WEEK OF CARE AND THEN BI-WEEKLY. PLEASE ADDITIONALLY COMMUNICATE ANY ABNORMALS AND NEW FINDINGS TO THE SURGEONS OFFICE. Discharge Disposition: HOME WITH HOME HEALTH SERVICES
== END 2023-04-19 13:28 | disposition home health service (06) | DRG 236 ==
LOC: 2ORMAIN 06:15 → 2SICU 12:35
PROVIDERS: ADMIT Thoracic Surgery (Cardiothoracic Vascular Surgery); ATTEND Thoracic Surgery (Cardiothoracic Vascular Surgery)
PROC: 02L70CK Occlusion of Left Atrial Appendage with Extraluminal Device, Open Approach (ICD-10-PCS; 2023-04-14)
PROC: 4A0305C Measurement of Arterial Flow, Coronary, Open Approach (ICD-10-PCS; 2023-04-14)
PROC: B24BZZ4 Ultrasonography of Heart with Aorta, Transesophageal (ICD-10-PCS; 2023-04-14)
PROC: 30233J1 Transfusion of Nonautologous Serum Albumin into Peripheral Vein, Percutaneous Approach (ICD-10-PCS; 2023-04-14)
PROC: 021 Heart and Great Vessels, Bypass (ICD-10-PCS; principal; 2023-04-14 09:00)
PROC: 03BC4ZZ Excision of Left Radial Artery, Percutaneous Endoscopic Approach (ICD-10-PCS; 2023-04-14 09:00)
PROC: 0210093 Bypass Coronary Artery, One Artery from Coronary Artery with Autologous Venous Tissue, Open Approach (ICD-10-PCS; 2023-04-14 09:00)
PROC: 06BQ0ZZ Excision of Left Saphenous Vein, Open Approach (ICD-10-PCS; 2023-04-14 09:00)
DX: I25.10 Atherosclerotic heart disease of native coronary artery without angina pectoris (principal); J93.82 Other air leak; D62 Acute posthemorrhagic anemia; E11.9 Type 2 diabetes mellitus without complications; I10 Essential (primary) hypertension; E78.5 Hyperlipidemia, unspecified; K21.9 Gastro-esophageal reflux disease without esophagitis; Z82.49 Family history of ischemic heart disease and other diseases of the circulatory system; Z79.899 Other long term (current) drug therapy; Z79.84 Long term (current) use of oral hypoglycemic drugs; Z79.82 Long term (current) use of aspirin; Z79.85 Long-term (current) use of injectable non-insulin antidiabetic drugs; Z86.16 Personal history of COVID-19; Z87.19 Personal history of other diseases of the digestive system; Z90.49 Acquired absence of other specified parts of digestive tract; Z85.828 Personal history of other malignant neoplasm of skin
CPT/HCPCS: 71045; 71046; 80048; 80053; 82330; 82805; 83735; 84132; 85025; 85027; 85610; 85730; 86850; 86891; 86900; 86901; 86920; 94002; 94640

== ENCOUNTER → 2023-10-18 | Outpatient (CLI) | payer MEDICARE ==
[2023-10-18 15:49] LABS: ALT 19 U/L (10-49); AST 15 U/L (14-35); Chol/HDL Ratio 5.12 Ratio; LDL Cholesterol,Calculated 67.2 mg/dL (0.0-131.0)
== END | disposition home or self-care (01) ==
LOC: LABWHC1 08:37
PROVIDERS: ATTEND Internal Medicine Cardiovascular Disease
DX: E78.2 Mixed hyperlipidemia (principal)
CPT/HCPCS: 36415; 80061; 84450; 84460

== ENCOUNTER → 2024-04-28 | Outpatient (CLI) | payer MEDICARE ==
[2024-04-28 16:13] LABS: ALT 23 U/L (10-49); AST 18 U/L (14-35); Chol/HDL Ratio 3.37 Ratio; LDL Cholesterol,Calculated 41.7 mg/dL (0.0-131.0)
== END | disposition home or self-care (01) ==
LOC: LABWHC1 08:38
PROVIDERS: ATTEND Internal Medicine Cardiovascular Disease
DX: E78.2 Mixed hyperlipidemia (principal)
CPT/HCPCS: 36415; 80061; 84450; 84460